=== PATIENT | male | born 1955 | race Caucasian/White ===

== ENCOUNTER 2020-04-22 08:08 | Outpatient (CLI) | payer MEDICARE, OTHER, SELFPAY ==
[2020-04-22 09:02] LABS: Hemoglobin A1C 6.6 % (<5.7)
== END 2020-04-22 08:09 | disposition home or self-care (01) ==
PROVIDERS: PCP Internal Medicine; Visit Provider Nurse Practitioner
DX: E11.9 Type 2 diabetes mellitus without complications (principal)
CPT/HCPCS: 36415; 83036

== ENCOUNTER 2020-06-01 12:22 | Outpatient (CLI) | payer MEDICARE, OTHER, SELFPAY ==
[2020-06-01 12:57] LABS: Blood Urea Nitrogen 19 mg/dL (9-20); Calcium 10.1 mg/dL (8.4-10.2); Carbon Dioxide 29 mmol/L (22-30); Chloride 100 mmol/L (98-107); Estimated Glomerular Filt Rate > 60; Glucose 124 mg/dL (75-110); Magnesium 2.5 mg/dL (1.6-2.3); Potassium 3.7 mmol/L (3.4-5.0); Sodium 138 mmol/L (137-145)
== END 2020-06-01 12:23 | disposition home or self-care (01) ==
PROVIDERS: PCP Internal Medicine; Visit Provider Clinical Nurse Specialist
DX: E87.6 Hypokalemia (principal)
CPT/HCPCS: 36415; 80048; 83735

== ENCOUNTER 2020-06-04 11:10 | Outpatient (CLI) | payer MEDICARE, OTHER, SELFPAY ==
--- NOTE | 2020-06-04 15:00 | NEURO_ITS ---
Patient Number: [id number] Impression: # Complains of muscle cramps in lower extremities. # Normal nerve conduction study. # Normal needle/EMG exam. # Clinical correlation recommended. Nerve Conduction Studies Anti Sensory Summary Table Stim Site NR Peak (ms) P-T Amp (?V) Site1 Site2 Delta-P (ms) Dist (cm) Devonte (m/s) Left Sup Fibular Anti Sensory (Ant Lat Mall) 14 cm 3.3 16.1 14 cm Ant Lat Mall 3.3 16.0 48 Right Sup Fibular Anti Sensory (Ant Lat Mall) 14 cm 3.8 9.0 14 cm Ant Lat Mall 3.8 16.0 42 Left Sural Anti Sensory (Lat Mall) Calf 3.8 5.3 Calf Lat Mall 3.8 16.0 42 Right Sural Anti Sensory (Lat Mall) Calf 3.8 4.9 Calf Lat Mall 3.8 16.0 42 Motor Summary Table Stim Site NR Onset (ms) O-P Amp (mV) Site1 Site2 Delta-0 (ms) Dist (cm) Devonte (m/s) Left Peroneal Motor (Vastus Med) Ankle 5.1 2.4 Popit Ankle 8.4 37.0 44 Popit 13.5 2.0 Right Peroneal Motor (Vastus Med) Ankle 4.5 2.3 Popit Ankle 8.9 39.0 44 Popit 13.4 1.5 Left Tibial Motor (Abd Justin Brev) Ankle 4.5 4.2 Knee Ankle 9.6 44.0 46 Knee 14.1 3.9 Right Tibial Motor (Abd Justin Brev) Ankle 5.1 4.5 Knee Ankle 9.7 42.0 43 Knee 14.8 1.9 F Wave Studies NR F-Lat (ms) L-R F-Lat (ms) Left Peroneal (Mrkrs) (EDB) 52.54 0.16 Right Peroneal (Mrkrs) (EDB) 52.70 0.16 Left Tibial (Mrkrs) (Abd Hallucis) 51.46 1.99 Right Tibial (Mrkrs) (Abd Hallucis) 53.45 1.99 EMG Side Muscle Nerve Root Ins Act Fibs Amp Dur Recrt Comment Right AntTibialis Dp Br Fibular L4-5 Nml Nml Nml Nml Nml Right Gastroc Tibial S1-2 Nml Nml Nml Nml Nml Right Fibularis Long Sup Br Fibular L5-S1 Nml Nml Nml Nml Nml Right Flex Dig Long Tibial L5-S2 Nml Nml Nml Nml Nml Right Ext Dig Brev Dp Br Fibular L5, S1 Nml Nml Nml Nml Nml Left AntTibialis Dp Br Fibular L4-5 Nml Nml Nml Nml Nml Left Gastroc Tibial S1-2 Nml Nml Nml Nml Nml Left Fibularis Long Sup Br Fibular L5-S1 Nml Nml Nml Nml Nml Left Flex Dig Long Tibial L5-S2 Nml Nml Nml Nml Nml Left Ext Dig Brev Dp Br Fibular L5, S1 Nml Nml Nml Nml Nml Right QuadratusFem QuadFemoris L4-5, S1 Nml Nml Nml Nml Nml Left QuadratusFem QuadFemoris L4-5, S1 Nml Nml Nml Nml Nml MTDD
== END 2020-06-04 11:11 | disposition home or self-care (01) ==
LOC: ANHNEURO 11:12
PROVIDERS: PCP Internal Medicine; Visit Provider Clinical Nurse Specialist
DX: M62.81 Muscle weakness (generalized) (principal)
CPT/HCPCS: 95886; 95910

== ENCOUNTER 2020-07-06 09:13 | Outpatient (CLI) | payer MEDICARE, OTHER, SELFPAY ==
[2020-07-06 09:50] LABS: Add Urine Microscopic? YES; Appearance Urine Cloudy (Clear); Bacteria Urine Trace /hpf; Bilirubin Urine Negative (Negative); Color Urine Amber (Yellow); Glucose Urine UA Negative (Negative); Ketones Urine Negative (Negative); Leukocyte Esterase Ur Trace LEU/UL (Negative); Mucus Urine Moderate /lpf; Nitrate Urine Positive (Negative); Protein Urine Negative (Negative); Specific Grav Ur 1.021 (1.001-1.035); Squamous Epithelial Cell Urine Rare /hpf (Few); Urobilinogen Urine Negative mg/dL (<2.0)
[2020-07-06 09:55] LABS: Blood Urine Negative (Negative)
[2020-07-06 10:00] LABS: Alanine Aminotransferase 37 U/L (4-50); Albumin Level 3.9 g/dL (3.5-5.1); Alkaline Phosphatase 84 U/L (38-126); Anion Gap 8 mmol/L (8-16); Aspartate Amino Transferase 39 U/L (17-59); Bilirubin,Total 0.6 mg/dL (0.2-1.3); Blood Urea Nitrogen 20 mg/dL (9-20); Calcium 9.3 mg/dL (8.4-10.2); Carbon Dioxide 28 mmol/L (22-30); Chloride 103 mmol/L (98-107); Estimated Glomerular Filt Rate > 60; Glucose 133 mg/dL (75-110); Magnesium 2.2 mg/dL (1.6-2.3); Potassium 3.7 mmol/L (3.4-5.0); Sodium 139 mmol/L (137-145)
[2020-07-06 10:02] LABS: Hemoglobin A1C 6.5 % (<5.7)
[2020-07-06 10:26] LABS: Thyroid Stimulating Hormone 0.303 uIU/mL (0.465-4.680)
== END 2020-07-06 09:14 | disposition home or self-care (01) ==
PROVIDERS: Clinical Nurse Specialist; PCP Internal Medicine; Visit Provider Nurse Practitioner
DX: N39.0 Urinary tract infection, site not specified (principal); E11.9 Type 2 diabetes mellitus without complications; R25.2 Cramp and spasm
CPT/HCPCS: 36415; 80053; 81001; 83036; 83735; 84443; 87077; 87086; 87088; 87186

== ENCOUNTER 2020-07-07 08:21 | Outpatient (CLI) | payer MEDICARE, OTHER, SELFPAY ==
[2020-07-07 09:35] LABS: Free T4 Free Thyroxine 1.19 ng/mL (0.78-2.19); Thyroid Stimulating Hormone 0.552 uIU/mL (0.465-4.680)
[2020-07-10 13:42] LABS: Triiodothyronine T3 Free 3.2 pg/mL (2.3-4.2)
== END 2020-07-07 08:22 | disposition home or self-care (01) ==
LOC: ANHLAB 08:26
PROVIDERS: PCP Internal Medicine; Visit Provider Clinical Nurse Specialist
DX: R79.89 Other specified abnormal findings of blood chemistry (principal); E11.9 Type 2 diabetes mellitus without complications
CPT/HCPCS: 36415; 84439; 84443; 84481

== ENCOUNTER 2020-07-16 09:30 | Outpatient (CLI) | payer MEDICARE, OTHER, SELFPAY ==
[2020-07-16 09:56] LABS: Add Urine Microscopic? YES; Appearance Urine Clear (Clear); Bilirubin Urine Negative (Negative); Blood Urine Negative (Negative); Color Urine Yellow (Yellow); Glucose Urine UA Negative (Negative); Ketones Urine Negative (Negative); Leukocyte Esterase Ur Negative LEU/UL (Negative); Mucus Urine Rare /lpf; Nitrate Urine Negative (Negative); Protein Urine Negative (Negative); RBC Urine 0-2 /hpf (0-2); Specific Grav Ur 1.016 (1.001-1.035); Urobilinogen Urine Negative mg/dL (<2.0); WBC Urine 0-3 /hpf
== END 2020-07-16 09:31 | disposition home or self-care (01) ==
LOC: ANHLAB 09:33
PROVIDERS: PCP Internal Medicine; Visit Provider Clinical Nurse Specialist
DX: N39.0 Urinary tract infection, site not specified (principal)
CPT/HCPCS: 81001

== ENCOUNTER 2020-08-27 08:32 | Outpatient (CLI) | payer MEDICARE, OTHER, SELFPAY ==
[2020-08-27 09:54] LABS: Thyroid Stimulating Hormone 0.824 uIU/mL (0.465-4.680); Total Triiodothyronine (T3) 1.85 NG/ML (0.97-1.69)
[2020-08-27 10:03] LABS: Free T4 Free Thyroxine 1.15 ng/mL (0.78-2.19)
[2020-08-31 04:27] LABS: Thyroid Peroxidase Antibodies 1 IU/mL (<9)
[2020-08-31 14:47] LABS: Thyrotropin Receptor Antibody 12.39 IU/L (<=2.00)
== END 2020-08-27 08:33 | disposition home or self-care (01) ==
PROVIDERS: PCP Internal Medicine; Visit Provider Internal Medicine Endocrinology, Diabetes & Metabolism
DX: R79.89 Other specified abnormal findings of blood chemistry (principal); E07.9 Disorder of thyroid, unspecified
CPT/HCPCS: 36415; 83519; 84439; 84443; 84480; 86376

== ENCOUNTER 2020-09-16 10:31 | Outpatient (CLI) | payer MEDICARE, OTHER, SELFPAY ==
[2020-09-16 12:41] LABS: Folic Acid > 20.0 ng/mL (2.76->20)
[2020-09-16 13:03] LABS: Erythrocyte Sedimentation Rate 16 mm/hr (0-20)
[2020-09-20 07:20] LABS: ANA Cascade Screen Negative (Negative)
== END 2020-09-16 10:32 | disposition home or self-care (01) ==
PROVIDERS: PCP Internal Medicine; Visit Provider Nurse Practitioner
DX: M79.10 Myalgia, unspecified site (principal)
CPT/HCPCS: 36415; 82607; 82746; 85652; 86038; 86430

== ENCOUNTER 2020-11-24 12:34 | Outpatient (CLI) | payer MEDICARE, OTHER, SELFPAY ==
[2020-11-24 13:20] LABS: Anion Gap 6 mmol/L (8-16); Blood Urea Nitrogen 22 mg/dL (9-20); Calcium 9.6 mg/dL (8.4-10.2); Carbon Dioxide 27 mmol/L (22-30); Chloride 104 mmol/L (98-107); Estimated Glomerular Filt Rate > 60; Glucose 152 mg/dL (75-110); Potassium 4.2 mmol/L (3.4-5.0); Sodium 137 mmol/L (137-145)
== END 2020-11-24 12:35 | disposition home or self-care (01) ==
LOC: ANHLAB 12:43
PROVIDERS: PCP Internal Medicine; Visit Provider Clinical Nurse Specialist
DX: E83.40 Disorders of magnesium metabolism, unspecified (principal); E11.9 Type 2 diabetes mellitus without complications
CPT/HCPCS: 36415; 80048; 83036; 83735

== ENCOUNTER 2021-01-25 09:31 | Outpatient (CLI) | payer MEDICARE, OTHER, SELFPAY | END 2021-01-25 09:32 | LOC: ANHCOVIDVC 09:31 | PROVIDERS: PCP Internal Medicine | DX: Z23 Encounter for immunization (principal) | CPT/HCPCS: 0001A; 91300 ==

== ENCOUNTER 2021-02-15 09:30 | Outpatient (CLI) | payer MEDICARE, OTHER, SELFPAY | END 2021-02-15 09:31 | disposition home or self-care (01) | LOC: ANHCOVIDVC 09:30 | PROVIDERS: PCP Internal Medicine | DX: Z23 Encounter for immunization (principal) | CPT/HCPCS: 0002A; 91300 ==

== ENCOUNTER 2021-02-25 09:05 | Outpatient (CLI) | payer MEDICARE, OTHER, SELFPAY ==
[2021-02-25 09:40] LABS: Basophils Percent Auto 0.8 % (0.2-1.2); Eosinophils Absolute Auto 0.1 K/mm3 (0-0.3); Eosinophils Percent Auto 2.5 % (0-4.4); Hematocrit 41.8 % (42.0-52.0); Immature Granulocyte Absolute 0.01 K/mm3 (0.00-0.031); Immature Granulocyte Percent A 0.2 % (0-0.5); Lymphocytes Absolute Auto 1.17 K/mm3 (0.9-3.2); Lymphocytes Percent Auto 22.2 % (18.3-44.2); Mean Corpuscular HGB Conc 33.5 g/dl (32-36); Mean Corpuscular Hemoglobin 27.8 pg (26-34); Mean Corpuscular Volume 83.1 fl (80-100); Mean Platelet Volume 9.4 fl (7.4-10.4); Monocytes Absolute Auto 0.3 K/mm3 (0.1-0.6); Monocytes Percent Auto 5.5 % (2.6-8.5); Neutrophils Absolute Auto 3.6 K/mm3 (1.3-6.7); Neutrophils Percent Auto 68.8 % (45.5-73.1); Platelet Count Result 224 k/mm3 (150-375); Red Blood Count 5.03 M/mm3 (4.6-6.20); Red Cell Distribution Width 13.7 % (11.5-14.5); White Blood Count 5.3 K/mm3 (4.5-10.0)
[2021-02-25 09:48] LABS: Hemoglobin A1C 5.6 % (<5.7)
[2021-02-25 09:50] LABS: Anion Gap 6 mmol/L (8-16); Blood Urea Nitrogen 17 mg/dL (9-20); Calcium 9.5 mg/dL (8.4-10.2); Carbon Dioxide 28 mmol/L (22-30); Chloride 106 mmol/L (98-107); Estimated Glomerular Filt Rate > 60; Glucose 126 mg/dL (75-110); Sodium 140 mmol/L (137-145)
[2021-02-25 10:07] LABS: MALB Creatinine Ratio < 6.1 mg/g (0-30); Microalbumin Urine Random < 6.0 mg/L (0-16.7)
== END 2021-02-25 09:06 | disposition home or self-care (01) ==
PROVIDERS: PCP Internal Medicine; Visit Provider Clinical Nurse Specialist
DX: E11.9 Type 2 diabetes mellitus without complications (principal); I10 Essential (primary) hypertension
CPT/HCPCS: 36415; 80048; 82043; 83036; 85025

== ENCOUNTER 2022-04-07 08:27 | Outpatient (CLI) | payer MEDICARE, OTHER, SELFPAY ==
[2022-04-07 08:56] LABS: Basophils Absolute Auto 0.1 K/mm3 (0.0-0.1); Basophils Percent Auto 0.7 % (0.2-1.2); Eosinophils Absolute Auto 0.2 K/mm3 (0-0.3); Eosinophils Percent Auto 2.3 % (0-4.4); Hematocrit 41.9 % (42.0-52.0); Hemoglobin 12.7 g/dL (14.0-18.0); Immature Granulocyte Absolute 0.02 K/mm3 (0.00-0.031); Immature Granulocyte Percent A 0.3 % (0-0.5); Lymphocytes Absolute Auto 1.24 K/mm3 (0.9-3.2); Lymphocytes Percent Auto 17.8 % (18.3-44.2); Mean Corpuscular HGB Conc 30.3 g/dl (32-36); Mean Corpuscular Hemoglobin 25.7 pg (26-34); Mean Corpuscular Volume 84.6 fl (80-100); Mean Platelet Volume 10.9 fl (7.4-10.4); Monocytes Absolute Auto 0.4 K/mm3 (0.1-0.6); Monocytes Percent Auto 6.3 % (2.6-8.5); Neutrophils Absolute Auto 5.1 K/mm3 (1.3-6.7); Neutrophils Percent Auto 72.6 % (45.5-73.1); Platelet Count Result 198 k/mm3 (150-375); Red Blood Count 4.95 M/mm3 (4.6-6.20); Red Cell Distribution Width 15.3 % (11.5-14.5)
[2022-04-07 09:07] LABS: Alanine Aminotransferase 29 U/L (6-50); Albumin Level 3.8 g/dL (3.5-5.1); Alkaline Phosphatase 92 U/L (38-126); Anion Gap 8 mmol/L (8-16); Aspartate Amino Transferase 38 U/L (17-59); Bilirubin,Total 0.9 mg/dL (0.2-1.3); Blood Urea Nitrogen 17 mg/dL (9-20); Calcium 8.8 mg/dL (8.4-10.2); Carbon Dioxide 25 mmol/L (22-30); Chloride 106 mmol/L (98-107); Cholesterol 102 mg/dL (0-200); Estimated Glomerular Filt Rate > 60; Glucose 144 mg/dL (65-110); HDL Direct 37 mg/dL; Hemoglobin A1C 6.3 % (<5.7); Potassium 3.9 mmol/L (3.4-5.0); Sodium 139 mmol/L (137-145); Triglycerides 65 mg/dL (<150)
[2022-04-07 09:17] LABS: LDL Cholesterol Direct 47 mg/dL
== END 2022-04-07 08:28 | disposition home or self-care (01) ==
LOC: ANHLAB 08:34
PROVIDERS: PCP Internal Medicine; Visit Provider Clinical Nurse Specialist
DX: Z12.5 Encounter for screening for malignant neoplasm of prostate (principal); E11.9 Type 2 diabetes mellitus without complications; I10 Essential (primary) hypertension
CPT/HCPCS: 36415; 80053; 80061; 83036; 84153; 85025; G0103

== ENCOUNTER 2022-08-11 08:54 | Outpatient (CLI) | payer MEDICARE, OTHER, SELFPAY ==
[2022-08-11 09:22] LABS: Basophils Absolute Auto 0.1 K/mm3 (0.0-0.1); Basophils Percent Auto 0.8 % (0.2-1.2); Eosinophils Absolute Auto 0.1 K/mm3 (0-0.3); Eosinophils Percent Auto 1.6 % (0-4.4); Hematocrit 44.1 % (42.0-52.0); Hemoglobin 14.2 g/dL (14.0-18.0); Immature Granulocyte Absolute 0.02 K/mm3 (0.00-0.031); Immature Granulocyte Percent A 0.3 % (0-0.5); Lymphocytes Absolute Auto 1.36 K/mm3 (0.9-3.2); Lymphocytes Percent Auto 22.3 % (18.3-44.2); Mean Corpuscular HGB Conc 32.2 g/dl (32-36); Mean Corpuscular Hemoglobin 27.2 pg (26-34); Mean Corpuscular Volume 84.3 fl (80-100); Mean Platelet Volume 10.7 fl (7.4-10.4); Monocytes Absolute Auto 0.4 K/mm3 (0.1-0.6); Monocytes Percent Auto 6.2 % (2.6-8.5); Neutrophils Absolute Auto 4.2 K/mm3 (1.3-6.7); Neutrophils Percent Auto 68.8 % (45.5-73.1); Platelet Count Result 179 k/mm3 (150-375); Red Blood Count 5.23 M/mm3 (4.6-6.20); Red Cell Distribution Width 14.9 % (11.5-14.5); White Blood Count 6.1 K/mm3 (4.5-10.0)
[2022-08-11 09:33] LABS: Anion Gap 13 mmol/L (8-16); Blood Urea Nitrogen 15 mg/dL (9-20); Carbon Dioxide 24 mmol/L (22-30); Chloride 103 mmol/L (98-107); Estimated Glomerular Filt Rate > 60; Glucose 176 mg/dL (65-110); Potassium 3.8 mmol/L (3.4-5.0); Sodium 140 mmol/L (137-145)
[2022-08-11 10:50] LABS: Hemoglobin A1C 7.3 % (<5.7)
== END 2022-08-11 08:55 | disposition home or self-care (01) ==
LOC: ANHLAB 08:55
PROVIDERS: PCP Internal Medicine; Visit Provider Nurse Practitioner
DX: E11.9 Type 2 diabetes mellitus without complications (principal)
CPT/HCPCS: 36415; 80048; 83036; 85025

== ENCOUNTER 2022-12-13 09:01 | Outpatient (CLI) | payer MEDICARE, OTHER, SELFPAY ==
[2022-12-13 19:41] LABS: Anion Gap 6 mmol/L (8-16); Blood Urea Nitrogen 21 mg/dL (9-20); Calcium 9.3 mg/dL (8.4-10.2); Carbon Dioxide 28 mmol/L (22-30); Chloride 109 mmol/L (98-107); Estimated Glomerular Filt Rate > 60; Glucose 136 mg/dL (65-110); Potassium 4.6 mmol/L (3.4-5.0); Sodium 143 mmol/L (137-145)
[2022-12-13 20:46] LABS: Hemoglobin A1C 6.8 % (<5.7)
== END 2022-12-13 09:02 | disposition home or self-care (01) ==
LOC: ANHGOSHLAB 09:04
PROVIDERS: PCP Internal Medicine; Visit Provider Nurse Practitioner
DX: E11.9 Type 2 diabetes mellitus without complications (principal)
CPT/HCPCS: 36415; 80048; 83036

== ENCOUNTER 2022-12-14 08:22 | Outpatient (NON) | payer MEDICARE, OTHER, SELFPAY ==
[2022-12-14 20:48] LABS: Creatinine Urine 89.7 mg/dL
[2022-12-14 20:49] LABS: MALB Creatinine Ratio 8.8 mg/g (0-30); Microalbumin Urine Random 7.9 mg/L (0-16.7)
== END 2022-12-14 08:23 | disposition home or self-care (01) ==
LOC: ANHGOSHLAB 08:24
PROVIDERS: PCP Internal Medicine; Visit Provider Nurse Practitioner
DX: E11.9 Type 2 diabetes mellitus without complications (principal)
CPT/HCPCS: 82043

== ENCOUNTER 2023-03-06 10:11 | Outpatient (CLI) | payer MEDICARE, OTHER, SELFPAY ==
[2023-03-06 18:54] LABS: Iron 71 ug/dL (49-181)
[2023-03-06 19:04] LABS: Percent Iron Saturation 21 % (20-50)
== END 2023-03-06 10:12 | disposition home or self-care (01) ==
LOC: ANHGOSHLAB 10:13
PROVIDERS: PCP Internal Medicine; Visit Provider Clinical Nurse Specialist
DX: G25.81 Restless legs syndrome (principal); I10 Essential (primary) hypertension; R79.89 Other specified abnormal findings of blood chemistry
CPT/HCPCS: 36415; 82728; 83540; 83550

== ENCOUNTER 2023-03-22 11:04 | Outpatient (CLI) | payer MEDICARE, OTHER, SELFPAY ==
[2023-03-22 19:46] LABS: Basophils Absolute Auto 0.1 K/mm3 (0.0-0.1); Eosinophils Absolute Auto 0.1 K/mm3 (0-0.3); Eosinophils Percent Auto 1.4 % (0-4.4); Hematocrit 44.7 % (42.0-52.0); Hemoglobin 14.6 g/dL (14.0-18.0); Immature Granulocyte Absolute 0.02 K/mm3 (0.00-0.031); Immature Granulocyte Percent A 0.3 % (0-0.5); Lymphocytes Absolute Auto 1.69 K/mm3 (0.9-3.2); Lymphocytes Percent Auto 24.1 % (18.3-44.2); Mean Corpuscular HGB Conc 32.7 g/dl (32-36); Mean Corpuscular Hemoglobin 28.2 pg (26-34); Mean Corpuscular Volume 86.5 fl (80-100); Mean Platelet Volume 11.6 fl (7.4-10.4); Monocytes Absolute Auto 0.4 K/mm3 (0.1-0.6); Monocytes Percent Auto 6.3 % (2.6-8.5); Neutrophils Absolute Auto 4.7 K/mm3 (1.3-6.7); Neutrophils Percent Auto 66.9 % (45.5-73.1); Platelet Count Result 179 k/mm3 (150-375); Red Blood Count 5.17 M/mm3 (4.6-6.20); Red Cell Distribution Width 13.4 % (11.5-14.5)
[2023-03-22 22:16] LABS: Hemoglobin A1C 8.5 % (<5.7)
== END 2023-03-22 11:05 | disposition home or self-care (01) ==
LOC: ANHGOSHLAB 11:11
PROVIDERS: Clinical Nurse Specialist; Nurse Practitioner; PCP Internal Medicine; Visit Provider Internal Medicine
DX: I10 Essential (primary) hypertension (principal); E11.9 Type 2 diabetes mellitus without complications
CPT/HCPCS: 36415; 83036; 85025

== ENCOUNTER 2023-07-12 14:59 | Outpatient (CLI) | payer MEDICARE, OTHER, SELFPAY ==
--- NOTE | ~2023-07-12 | US_ITS ---
EXAMINATION: US scrotum doppler DATE: 07/12/2023 16:19 INDICATION: N50.89 - Other specified disorders of the male genital or... . TECHNIQUE: Grayscale and Doppler ultrasound images of the testes were obtained. COMPARISON: None. FINDINGS: The right testis measures 4.6 x 2.9 x 3.1 cm. The left testis measures 4.1 x 3.0 x 2.8 cm. No testicular mass. The right testicle is slightly hypoechoic and hypovascular relative to the left T he right epididymis contains multiple cysts but is otherwise normal. The left epididymis contains mul tiple cysts but otherwise normal. Large bilateral hydroceles, with debris on the right. Scrotal skin thickening up to 8 mm. No varicoceles IMPRESSION: Large bilateral hydroceles, with debris noted on the right. Slightly hypoechoic and hypovascular right testicle, possibly related to edema. Infection/torsion con sidered less likely given the lack of pain and fever, but are not excluded. Scrotal skin thickening may be related to edema. As above, infection considered less likely. Bilateral epididymal cysts. Reviewed, dictated and finalized at location K. IMPRESSION: Large bilateral hydroceles, with debris noted on the right. Slightly hypoechoic and hypovascular right testicle, possibly related to edema. Infection/torsion considered less likely given the lack of pain and fever, but are not excluded. Scrotal skin thickening may be related to edema. As above, infection considered less likely. Bilateral epididymal cysts.
== END 2023-07-12 15:00 | disposition home or self-care (01) ==
PROVIDERS: PCP Internal Medicine; Visit Provider Nurse Practitioner
DX: N50.89 Other specified disorders of the male genital organs (principal); N50.3 Cyst of epididymis
CPT/HCPCS: 76870; 93976

== ENCOUNTER 2023-08-03 15:26 | Outpatient (NON) | payer MEDICARE, OTHER, SELFPAY ==
[2023-08-03 19:28] LABS: Appearance Urine Clear (Clear); Bacteria Urine 4+ /hpf; Bilirubin Urine Negative (Negative); Blood Urine 2+ (Negative); Color Urine Dark Yellow (Yellow); Glucose Urine UA 3+ mg/dL (Negative); Ketones Urine Negative (Negative); Leukocyte Esterase Ur Negative LEU/UL (Negative); Need Manual Microscopic Reviewed; Nitrate Urine Positive (Negative); Protein Urine Negative (Negative); RBC Urine 0-2 /hpf (0-2); Specific Grav Ur 1.023 (1.001-1.035); Squamous Epithelial Cell Urine None seen /hpf (Few); Urobilinogen Urine 0.2 mg/dL (<2.0); pH Urine 5.5 (5.0-9.0)
[2023-08-03 19:31] LABS: Add Urine Microscopic? YES
== END 2023-08-03 15:27 | disposition home or self-care (01) ==
LOC: ANHGOSHLAB 15:28
PROVIDERS: PCP Internal Medicine; Visit Provider Nurse Practitioner
DX: R31.9 Hematuria, unspecified (principal)
CPT/HCPCS: 81001; 87077; 87086; 87088; 87186

== ENCOUNTER 2023-08-21 08:10 | Outpatient (CLI) | payer MEDICARE, OTHER, SELFPAY ==
[2023-08-21 19:51] LABS: Alanine Aminotransferase 38 U/L (6-50); Albumin Level 3.8 g/dL (3.5-5.1); Alkaline Phosphatase 79 U/L (38-126); Anion Gap 6 mmol/L (8-16); Aspartate Amino Transferase 53 U/L (17-59); Blood Urea Nitrogen 16 mg/dL (9-20); Calcium 9.1 mg/dL (8.4-10.2); Carbon Dioxide 26 mmol/L (22-30); Chloride 106 mmol/L (98-107); Cholesterol 104 mg/dL (0-200); Estimated Glomerular Filt Rate > 60; Glucose 169 mg/dL (65-110); HDL Direct 43 mg/dL; Potassium 3.6 mmol/L (3.4-5.0); Sodium 138 mmol/L (137-145); Triglycerides 65 mg/dL (<150)
[2023-08-21 20:10] LABS: LDL Cholesterol Direct 54 mg/dL
[2023-08-21 20:44] LABS: Creatinine Urine 71.9 mg/dL
[2023-08-21 20:46] LABS: Basophils Absolute Auto 0.1 K/mm3 (0.0-0.1); Basophils Percent Auto 0.9 % (0.2-1.2); Eosinophils Absolute Auto 0.1 K/mm3 (0-0.3); Eosinophils Percent Auto 1.5 % (0-4.4); Hematocrit 42.5 % (42.0-52.0); Hemoglobin 13.7 g/dL (14.0-18.0); Immature Granulocyte Absolute 0.01 K/mm3 (0.00-0.031); Immature Granulocyte Percent A 0.1 % (0-0.5); Lymphocytes Absolute Auto 1.32 K/mm3 (0.9-3.2); Lymphocytes Percent Auto 19.3 % (18.3-44.2); Mean Corpuscular HGB Conc 32.2 g/dl (32-36); Mean Corpuscular Volume 86.7 fl (80-100); Mean Platelet Volume 11.7 fl (7.4-10.4); Monocytes Absolute Auto 0.4 K/mm3 (0.1-0.6); Monocytes Percent Auto 6.4 % (2.6-8.5); Neutrophils Absolute Auto 4.9 K/mm3 (1.3-6.7); Neutrophils Percent Auto 71.8 % (45.5-73.1); Platelet Count Result 175 k/mm3 (150-375); Red Cell Distribution Width 13.5 % (11.5-14.5); White Blood Count 6.9 K/mm3 (4.5-10.0)
[2023-08-21 20:47] LABS: MALB Creatinine Ratio 10.7 mg/g (0-30); Microalbumin Urine Random 7.7 mg/L (0-16.7)
[2023-08-21 21:52] LABS: Hemoglobin A1C 7.6 % (<5.7)
[2023-08-24 14:56] LABS: Prostate Specific Antigen 0.7 ng/mL (< OR = 4.0)
== END 2023-08-21 08:11 | disposition home or self-care (01) ==
PROVIDERS: Clinical Nurse Specialist; Nurse Practitioner; PCP Internal Medicine; Visit Provider Nurse Practitioner
DX: E11.9 Type 2 diabetes mellitus without complications (principal); Z12.5 Encounter for screening for malignant neoplasm of prostate
CPT/HCPCS: 36415; 80053; 80061; 82043; 83036; 84153; 85025; G0103

== ENCOUNTER 2024-01-01 11:11 | Outpatient (CLI) | payer MEDICARE, OTHER, SELFPAY ==
[2024-01-01 13:35] LABS: Alanine Aminotransferase 47 U/L (6-50); Albumin Level 3.8 g/dL (3.5-5.1); Alkaline Phosphatase 108 U/L (38-126); Anion Gap 5 mmol/L (8-16); Aspartate Amino Transferase 63 U/L (17-59); Bilirubin,Total 0.8 mg/dL (0.2-1.3); Blood Urea Nitrogen 16 mg/dL (9-20); Calcium 9.3 mg/dL (8.4-10.2); Carbon Dioxide 27 mmol/L (22-30); Chloride 103 mmol/L (98-107); Estimated Glomerular Filt Rate > 60; Glucose 432 mg/dL (65-110); Sodium 135 mmol/L (137-145)
[2024-01-01 15:29] LABS: Hemoglobin A1C 10.7 % (<5.7)
== END 2024-01-01 11:12 | disposition home or self-care (01) ==
LOC: ANHGOSHLAB 11:13
PROVIDERS: PCP Internal Medicine; Visit Provider Nurse Practitioner
DX: E11.9 Type 2 diabetes mellitus without complications (principal)
CPT/HCPCS: 36415; 80053; 83036

== ENCOUNTER 2024-05-10 10:01 | Outpatient (CLI) | payer MEDICARE, OTHER, SELFPAY ==
[2024-05-10 13:05] LABS: Alanine Aminotransferase 62 U/L (6-50); Alkaline Phosphatase 111 U/L (38-126); Anion Gap 7 mmol/L (4-12); Aspartate Amino Transferase 63 U/L (17-59); Bilirubin,Total 0.9 mg/dL (0.2-1.3); Blood Urea Nitrogen 15 mg/dL (9-20); Calcium 8.8 mg/dL (8.4-10.2); Carbon Dioxide 27 mmol/L (22-30); Chloride 104 mmol/L (98-107); Estimated Glomerular Filt Rate > 60; Glucose 322 mg/dL (65-110); Potassium 4.2 mmol/L (3.4-5.0); Sodium 138 mmol/L (137-145)
[2024-05-10 13:57] LABS: Hemoglobin A1C 12.2 % (<5.7)
== END 2024-05-10 10:02 | disposition home or self-care (01) ==
LOC: ANHGOSHLAB 10:03
PROVIDERS: PCP Internal Medicine; Visit Provider Nurse Practitioner
DX: E11.9 Type 2 diabetes mellitus without complications (principal)
CPT/HCPCS: 36415; 80053; 83036

== ENCOUNTER 2024-08-26 08:23 | Outpatient (CLI) | payer MEDICARE, OTHER, SELFPAY ==
[2024-08-26 14:38] LABS: Alanine Aminotransferase 41 U/L (6-50); Albumin Level 3.8 g/dL (3.5-5.1); Alkaline Phosphatase 76 U/L (38-126); Anion Gap 8 mmol/L (4-12); Aspartate Amino Transferase 76 U/L (17-59); Bilirubin,Total 0.8 mg/dL (0.2-1.3); Blood Urea Nitrogen 17 mg/dL (9-20); Carbon Dioxide 25 mmol/L (22-30); Chloride 103 mmol/L (98-107); Cholesterol 92 mg/dL (0-200); Estimated Glomerular Filt Rate > 60; Glucose 161 mg/dL (65-110); HDL Direct 36 mg/dL; Potassium 3.8 mmol/L (3.4-5.0); Sodium 136 mmol/L (137-145); Triglycerides 70 mg/dL (<150)
[2024-08-26 14:49] LABS: LDL Cholesterol Direct 37 mg/dL
[2024-08-26 14:51] LABS: Basophils Percent Auto 0.5 % (0.2-1.2); Eosinophils Absolute Auto 0.1 K/mm3 (0-0.3); Eosinophils Percent Auto 1.5 % (0-4.4); Hematocrit 42.8 % (42.0-52.0); Hemoglobin 13.8 g/dL (14.0-18.0); Immature Granulocyte Absolute 0.02 K/mm3 (0.00-0.031); Immature Granulocyte Percent A 0.3 % (0-0.5); Lymphocytes Absolute Auto 1.37 K/mm3 (0.9-3.2); Lymphocytes Percent Auto 18.6 % (18.3-44.2); Mean Corpuscular HGB Conc 32.2 g/dl (32-36); Mean Platelet Volume 11.6 fl (7.4-10.4); Monocytes Absolute Auto 0.5 K/mm3 (0.1-0.6); Monocytes Percent Auto 6.1 % (2.6-8.5); Neutrophils Absolute Auto 5.4 K/mm3 (1.3-6.7); Platelet Count Result 189 k/mm3 (150-375); Red Blood Count 4.92 M/mm3 (4.6-6.20); Red Cell Distribution Width 13.6 % (11.5-14.5); White Blood Count 7.4 K/mm3 (4.5-10.0)
[2024-08-26 15:07] LABS: Prostate Specific Antigen 0.7 ng/mL (< OR = 4.0)
[2024-08-26 15:27] LABS: Hemoglobin A1C 8.1 % (<5.7)
== END 2024-08-26 08:24 | disposition home or self-care (01) ==
PROVIDERS: PCP Internal Medicine; Visit Provider Nurse Practitioner
DX: E11.9 Type 2 diabetes mellitus without complications (principal); Z12.5 Encounter for screening for malignant neoplasm of prostate
CPT/HCPCS: 36415; 80053; 80061; 83036; 84153; 85025; G0103

== ENCOUNTER 2025-02-18 09:08 | Outpatient (CLI) | payer MEDICARE, OTHER, SELFPAY ==
--- OUTSIDE RECORDS SUMMARY | 2025-02-18 09:49 | XMS_ITS | Clinical Summary ---
Author Organization [facility] Address [address] [place] [address] Care Team Providers Care Pressure Washer Name Role Phone Anuel Bowman DO Primary Care Provider [phone] Source Comments [facility],non-owned Affiliates and Associated Physician Practices is amultiple site organization consisting of ambulatory clinics and hospital sitesin [place], [place], [place] and [place]. This disclosure is being madepursuant to the Care Everywhere program and may not contain all information available regarding this patient. Last updated 18.[facility] Allergies Active Allergy Reactions Criticality Noted Date Comments Cephalexin Itching Low 07/05/2023 Fish Allergy Diarrhea 01/27/2022 Fish-Derived Products Vomiting 05/27/2020 Penicillins Swelling 01/27/2022 Medications * Be aware that medications may not be up to date on this document. Alwaysverify current medications with the patient. Medication Sig Dispensed Refills Start Date End Date Status losartan (COZAAR) 100 MG tablet Take 1 (one) tablet by mouth once daily Active rOPINIRole (REQUIP) 1 MG tablet Take 1 (one) tablet by mouth at bedtime To be given with the 0.5 mg tablet to = 1.5 mg HS Active B Complex Vitamins (VITAMIN B COMPLEX PO) Take 2 tablets by mouth 3 times daily Active Melatonin 10 MG Take 10 (ten) mg by mouth at bedtime Active diphenhydrAMINE (BENADRYL) 25 MG tablet Take 2 (two) tablets by mouth at bedtime Active rOPINIRole (REQUIP) 0.5 MG tablet Take 1 (one) tablet by mouth at bedtime To be given with the 1 mg tablet to = 1.5 mg HS Active vitamin E (TOCOPHERYL) 400 UNIT capsule Take 1 (one) capsule by mouth once daily Active pregabalin (LYRICA) 75 MG capsule Take 2 (two) capsules by mouth 2 times daily 02/21/2022 Active Calcium Carbonate-Vit D-Min (Calcium 600+D Plus Minerals) 600-400 MG-UNIT TABS Take 1 tablet by mouth once daily Active acetaminophen (Tylenol) 325 MG tablet Take 1 (one) tablet by mouth every 4 hours as needed for Fever or Pain Maximum allowable Acetaminophen amount = 4 Grams (4000 mg) / 24 hours. Active apixaban (Eliquis) 5 MG tablet Take 1 (one) tablet by mouth 2 times daily Active glyBURIDE (Diabeta; Micronase) 5 MG tablet Take 1 (one) tablet by mouth daily with breakfast Take with a meal. Active METOPROLOL SUCCINATE ER PO Take 50 mg by mouth 2 times daily Active aspirin EC (Aspirin 81) 81 MG tablet Take 1 (one) tablet by mouth once daily Active Rybelsus 14 MG tablet Take 1 (one) tablet by mouth once daily Active Active Problems Problem Noted Date Diagnosed Date Cerebrovascular accident (CVA) 02/01/2022 HLD (hyperlipidemia) 02/01/2022 TIA involving right internal carotid artery 01/12 Prediabetes 02/01/2022 Left leg weakness 01/27/2022 Hypertension 01/27/2022 Carotid occlusion, right 01/27/2022 Resolved Problems Problem Noted Date Diagnosed Date Resolved Date Type 2 diabetes mellitus, [facility] long-term current use of insulin 02/01/2022 02/01/2022 Encounters Date Type Department Care Team Description 02/11/2025 3:00 PM CDT Office Visit [facility] - Urology [address] [place] [address] Clarke Munoz PA Urinary retention (Primary Dx); Gross hematuria 02/11/2025 Travel 01/31/2025 Travel from Last 3 Months Immunizations Name Administration Dates Next Due INFLUENZA VACCINE 08/16/2022 Social History Tobacco Use Types Packs/Day Years Used Date Smoking Tobacco: Never Smokeless Tobacco: Never Tobacco Cessation:Counseling Given: Not Answered Alcohol Use Standard Drinks/Week Comments Not Currently 0 (1 standard drink = 0.6 oz pur e alcohol) AUDIT-C Answer Date Recorded Q1: How often do you have a drink containing alc ohol? Patient declined 02/01/2022 Q2: How many drinks containi ng alcohol do you have on a typical day when you are drinking? Patient declined 02/01/2022 Q3: How often do you have si x or more drinks on one occasion? Patient declined 02/01/2022 PHQ-2 Answer Date Recorded PHQ2 TOTAL SCORE 0 02/03/2022 Hunger Vital Sign Answer Date Recorded Within the past 12 months, y ou worried that your food would run out before you got the money to buy more. Never true 01/29/20 Within the past 12 months, t he food you bought just didn't last and you didn't have money to get more. Never true 01/28/2022 Sex and Gender Information Value Date Recorded Sex Assigned at Not on file Gender Identity Not on file Sexual Orientation Not on file Last Filed Vital Signs Vital Sign Reading Time Taken Comments Blood Pressure 171/88 02/11/2025 2:32 PM CDT Pulse 65 02/11/2025 2:32 PM CDT Temperature 36.1 C (97 F) 02/11/2025 2:32 PM CDT Respiratory Rate 16 08/16/2023 9:50 AM CDT Oxygen Saturation 94% 02/11/2025 2:32 PM CDT Inhaled Oxygen Concentration - - Weight 108.9 kg (240 lb) 02/11/2025 2:32 PM CDT Height 172.7 cm (5' 8 ) 02/11/2025 2:32 PM CDT Body Mass Index 36.49 02/11/2025 2:32 PM CDT Plan of Treatment Upcoming Encounters Date Type Department Care Team (Late st Contact Info) Description 03/18/2025 8:45 AM CDT Appointment [facility] [address] [place] [phone] Clarke Munoz PA [address] [place] [phone] 03/21/2025 1:00 PM CDT Procedure visit [facility] - Urology [address] [place] [address] Ryder Crystal MD [address] [place] [address] 02/11/2026 3:00 PM CDT Office Visit [facility] - Urology [address] [place] [phone] Clarke Munoz PA [address] [place] [phone] Health Maintenance Due Date Last Done Comments COLON MONITORING 1955 COLONOSCOPY - COLON CA SCREENING 1955 CT COLONOGRAPHY - COLON CA SCREENING 1955 FIT - COLON CA SCREENING 1955 FLEX SIG - COLON CA SCREENING 1955 MEDICARE AWV 12 MONTHS 1955 DTAP/TDAP/TD VACCINES (1 - Tdap) 1974 DIABETES-STATIN 1995 PNEUMOCOCCAL VACCINE 50+ (1 of 1 - PCV) 2005 ZOSTER VACCINE (1 of 2) 2005 DIABETES RETINOPATHY SCREENING 02/01/2022 DIABETES-FOOT EXAM WITH MONOFILAMENT 02/01/2022 COLOGUARD (AGES 45-75) - COLON CA SCREENING 03/09/2023 03/09/2020 Colorectal Cancer Screening 03/09/2023 COVID-19 VACCINE ( season) 2024 02/15/2021, 01/25/2021 DEPRESSION SCREENING 11/13/2024 02/03/2022 DIABETES - URINE PROTEIN SCREENING 11/13/2024 DIABETES-HGB A1C 03/27/2025 09/27/2024, 12/2022, 05/13/2023, Additional history exists INFLUENZA VACCINE (Season Ended) 2025 08/16/2022, 08/22/2020, 08/18/2019, Additional history exists DIABETES-SERUM CREATININE 09/29/20252023, 09/29/2024, 09/28/2024, Additional history exists Respiratory Syncytial Virus (RSV) Vaccine Pt: or over 60 yrs (1 - 1-dose 75+ series) 2030 HEPATITIS C SCREENING Completed 01/27/2022 HEPATITIS B VACCINE Aged Out No longe r eligible based on patient's age to complete this topic HIB VACCINE Aged Out No longer eligi ble based on patient's age to complete this topic HPV VACCINE Aged Out No longer eligi ble based on patient's age to complete this topic MENINGOCOCCAL (Group B) VACCINE SHARED DECISION-MAKING Aged Out No longer eligible based on patient's age to complete this topic MENINGOCOCCAL GROUPS A/C/Y/W VACCINE Aged Out No longer eligible based on patient's age to complete this topic Procedures Procedure Name Priority Date/Time Associated Diagnosis Comments CREATININE - POCT INTERFACED Routine 01/04/2024 1:55 PM FIRE OFFICER HEMOGLOBIN A1C Routine 02/02/2022 2:37 AM CDT HEPATITIS C AB SCREEN RFLX NAAT QUANT STAT 01/27/2022 5:08 AM CDT from Last 3 Months or Most Recently Relevant to Health Maintenance Results * (ABNORMAL) CREATININE - POCT INTERFACED (01/04/2024 1:55 PM FIRE OFFICER) Creatinine POCT 1.52(H) 0.30 - 1.30 mg/dL 01/04/2024 1:57 PM FIRE OFFICER [facility] eGFR 50(L) >90 mL/min/1.7 3 m2 01/04/2024 1:57 PM FIRE OFFICER [facility] Blood BLOOD SPECIMEN / Unknown 01/04/2024 1:55 PM FIRE OFFICER 01/04/2024 1:57 PM FIRE OFFICER Jordy Sierra MD LAB - POINT OF CAR E ORDERABLES [facility] [address] [place] [address], [facility] [phone] * (ABNORMAL) HEMOGLOBIN A1C (02/02/2022 2:37 AM CDT) Hemoglobin A1c 7.0(H) <=5.6 % 02/02/2022 10:59 AM CDT [facility] Estimated Average Glucose 154 mg/dL 02/02/2022 10:59 AM CDT [facility] Comment: HbA1c Interpretation: Normal : < 5.7% Pre-diabetes: 5.7-6.4% Diabetes: Equal to or greater than 6.5% Test results diagnostic of diabetes should be repeated for confirmation. Treatment target values recommended by ADA and other clinical organizations should be used to evaluate metabolic control in patients. Reference: [place] [employer], Standards of Care in Diabetes -2020 In patients 70 years and older consider HbA1c target range of 7.0-7.5% (Reference: Major Herrera et al. JAMDA. 2012) The Sebia assay for the measurement of HbA1c is a National Glycohemoglobin Standardization Program (NGSP) certified method. Blood BLOOD SPECIMEN / Unknown Lab Venipuncture / Unknown 02/02/2022 2:37 AM CDT 02/02/2022 3:23 AM CDT Duke Russell MD LAB - CHEMISTRY ASHLEY CHINO Performing Organization Address City/[facility]/ZIP Co de Phone Number [address] [address], [place] [phone] * HEPATITIS C AB SCREEN RFLX NAAT QUANT (01/27/2022 5:08 AM CDT) Hepatitis C Antibody Non-react maria r Non-reac tive 01/27/2022 6:44 AM CDT [facility] Comment:Hepatitis C Antibody screen indicates no serologic evidence of past or current infection with Hepatitis C Virus. Patients with unexplained liver disease who are immunocompromised or suspected of having acute Hepatitis C infection may benefit from Nucleic Acid Test (JESUS MANUEL) for Hepatitis C Viral RNA to confirm Hepatitis C status. Blood BLOOD SPECIMEN / Unknown Venipuncture / Unknown 01/27/2022 5:08 AM CDT 01/27/2022 5:12 AM CDT Raul Henderson MD LAB - CHEMISTRY TAYLOR RATLIFF [address] [address], [place] [phone] from Last 3 Months or Most Recently Relevant to Health Maintenance Advance Directives * Full Code (Latest Code Status on File) Date Activated Date Inactivated Comments 02/01/2022 10:20 AM 02/04/2022 3:10 PM * Full Code Date Activated Date Inactivated Comments 01/27/2022 4:56 AM 01/30/2022 12:54 PM Care Teams Pressure Washer Relationship Specialty Start Date End Date Anuel Bowman DO PCP - General Internal Medicine 01/27/22
--- OUTSIDE RECORDS SUMMARY | 2025-02-18 09:49 | XMS_ITS | Clinical Summary ---
Author Organization [facility] Address [address] [place] [address] Phone Care Team Providers Care Home Theater Installer Name Role Phone Anuel Bowman DO Primary Care Provider [phone] Dionte Ovalles MD Unavailable [phone] Allergies Active Allergy Reactions Criticality Noted Date Comments Cephalexin Itching Low 07/05/2023 Fish Containing Products Vomiting Low 05/27/2020 Penicillins Swelling Medium 05/27/2020 Medications ropinirole HCl (ROPINIROLE ORAL) Take 2 mg by mouth nightly Active losartan (COZAAR) 100 mg tablet Take 1 tablet (100 mg total) by mouth daily Active diphenhydrAMINE (BENADRYL) 25 mg capsule Take 2 tablet/capsule (50 mg total) by mouth nightly as needed for itching Active vitamin E acetate (VITAMIN E ORAL) Take by mouth Active melatonin 10 mg tablet 1 tablet (10 mg total) Active atorvastatin (LIPITOR) 80 mg tablet Take 1 tablet (80 mg total) by mouth daily Active ibuprofen (ADVIL,MOTRIN) 600 mg tablet Take 1 tablet (600 mg total) by mouth every 6 (six) hours as needed for pain Active apixaban (ELIQUIS) 5 mg tablet Take 1 tablet (5 mg total) by mouth 2 (two) times a day Active glyBURIDE (DIABETA) 5 mg tablet Take 1 tablet (5 mg total) by mouth daily with breakfast Active metFORMIN (FORTAMET) 500 mg 24 hr tablet Take 1 tablet (500 mg total) by mouth 3 (three) times a day Active metoprolol XL (TOPROL-XL) 50 mg extended release tablet Take 1 tablet (50 mg total) by mouth 2 (two) times a day Active pregabalin (LYRICA) 200 mg capsule Take 1 capsule (200 mg total) by mouth 2 (two) times a day Active acetaminophen (TYLENOL) 325 mg tablet Take 2 tablets (650 mg total) by mouth every 6 (six) hours as needed for pain Active aspirin 81 mg enteric coated tablet Take 1 tablet (81 mg total) by mouth daily Active Rybelsus 14 mg tablet Take 1 tablet (14 mg total) by mouth daily Active calcium carbonate (TUMS) 1,250 mg (500 mg elemental) chewable tablet Take 1 tablet (1,250 mg total) by mouth daily Active cholecalciferol 25 mcg (1,000 unit) tablet Take 1 tablet (1,000 Units total) by mouth daily Active Active Problems Problem Noted Date Diagnosed Date Atrial fibrillation 07/05/2023 Primary osteoarthritis of left hip 05/26/2021 Overview (05/26/2021): Added automatically from request for surgery [id number] Immunizations Immunization Administration Dates Next Due MySQUAR SARS-CoV-2 Monovalent Vaccination (12+ Yrs) PURPLE 02/15/2021,01/25/2021 Surgical History Surgery Date Site/Laterality Comments TOTAL HIP ARTHROPLASTY 06/13/2021 - 07/13/2021 Left Medical History Medical History Date Comments Hypertension Peptic ulceration Sleep apnea cpap Heart murmur 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 1974 Urinary tract infection Type 2 diabetes mellitus (HCC) b orderline due to high Hgb A1C Atrial fibrillation (HCC) Murmur Pleural thickening Pulmonary nodule RLS (restless legs syndrome) Stroke (HCC) Family History Medical History Relation Name Comments back surgery Father Diabetes Mother Heart disease Mother Heart failure Mother Hypertension Mother Diabetes Other Heart disease Other Hypertension Other Relation Name Status Comments Father Mother Other Social History Tobacco Use Types Packs/Day Years Used Date Smoking Tobacco: Never Smokeless Tobacco: Never Tobacco Cessation:Counseling Given: Not Answered AUDIT-C Answer Date Recorded Q1: How often do you have a drink containing alc ohol? Never 05/31/2021 Average Number of Drinks Not on file 021 Frequency of Binge Drinking Not on file 05/13 Sex and Gender Information Value Date Recorded Sex Assigned at Not on file Legal Sex Male 12:11 AM JEWEL OLIVING MACHINE OPERATOR Gender Identity Male 06/11/2021 2:32 PM CDT Sexual Orientation Straight 06/11/2021 2: 32 PM CDT Obstetrics History Last Filed Vital Signs Vital Sign Reading Time Taken Comments Blood Pressure 120/82 10/30/2024 2:23 PM JEWEL OLIVING MACHINE OPERATOR Pulse 69 10/30/2024 2:23 PM JEWEL OLIVING MACHINE OPERATOR Temperature 36.8 C (98.2 F) 05/31/2021 1:59 PM CDT Respiratory Rate 18 05/31/2021 3:00 PM CDT Oxygen Saturation 95% 10/30/2024 2:23 PM JEWEL OLIVING MACHINE OPERATOR Inhaled Oxygen Concentration - - Weight 108 kg (238 lb) 10/30/2024 2:23 PM JEWEL OLIVING MACHINE OPERATOR Height 172.7 cm (5' 8 ) 10/30/2024 2:23 PM JEWEL OLIVING MACHINE OPERATOR Body Mass Index 36.19 10/30/2024 2:23 PM JEWEL OLIVING MACHINE OPERATOR Plan of Treatment Health Maintenance Due Date Last Done Comments Colon Cancer Screening-Colonoscopy 1955 Depression Screening 1955 Fall Risk Assessment 1955 Hepatitis C Screening 1955 Hepatitis B Screening 1973 Pneumococcal vaccine 65+ (1 of 1 - PCV) 2005 Well Visit 65+ 01/25/2020 Covid-19 Vaccine (3 - 2023-2 5 season) 2024 02/15/2021, 01/25/2021 Influenza Vaccine (#1) 2024 , 08/22/2020, 08/18/2019, Additional history exists DTaP/Tdap/Td Vaccine (2 - Td or Tdap) 11/03/2025 11/03/2015 Zoster Vaccine Completed 08/22/2020, 11/13, 08/18/2019, Additional history exists Medical Devices Implanted Type Area Whip Operator Device Identifier Shelf Expiration Date Model / Serial / Lot [employer]uy [employer] [id number] Laporte 54mm 36mm Hip Neutral Liner Acetabular Altrx Sterile Latex Free - [id number] Implanted:Qty: 1 on 05/31/2021 by Dionte Ovalles MD at [facility] Left: Hip [employer] 05/12/2026 [id number] / / [id number] [employer] [id number] Laporte 54mm Sector Hip Shell Acetabular Gription Sterile Latex Free - [id number] Implanted:Qty: 1 on 05/31/2021 by Dionte Ovalles MD at [facility] Left: Hip [employer] 04/12/2031 [id number] / / [id number] [employer] [id number] Actis [id number] Mm Collar Hip 6 High Offset Stem Femoral - [id number] Implanted:Qty: 1 on 05/31/2021 by Dionte Ovalles MD at [facility] Left: Hip [employer] 05/12/2031 [id number] / / [id number] [employer] [id number] Articul/Declan 36mm Cementless Hip +8.5mm /14 Taper Head Femoral Latex Free - [id number] Implanted:Qty: 1 on 05/31/2021 by Dionte Ovalles MD at [facility] Left: Hip [employer] 02/10/2026 [id number] / / [id number] Insurance MEDICARE [email or web address] MEDICARE FOR LIFE Advance Directives For more information, please contact: [phone] * Full Code (Latest Code Status on File) Date Activated Date Inactivated Comments 05/31/2021 11:11 AM 05/31/2021 8:40 PM Care Teams Home Theater Installer Relationship Specialty Start Date End Date Anuel Bowman DO PCP - General 11/02/15 Dionte Ovalles MD Surgeon Orthopedic Surgery 05/31/21
--- OUTSIDE RECORDS SUMMARY | 2025-02-18 09:49 | XMS_ITS | Encounter Summary ---
Author Organization [facility] Address [address] [place] [address] Care Team Providers Care Sales Representative Raw Fibers Name Role Phone Anuel Bowman DO Primary Care Provider [phone] Reason for Visit * Reason Onset Date Comments Care Management Follow-up 04/10/2024 Encounter Details Date Type Department Care Team (Late st Contact Info) Description 04/10/2024 Telephone [facility] - Centralized Scheduling [address] [place] [phone] Jordy Sierra MD Care Management Follow-up Social History Tobacco Use Types Packs/Day Years Used Date Smoking Tobacco: Never Smokeless Tobacco: Never Alcohol Use Standard Drinks/Week Comments Not Currently [...] money to buy more. Never true 01/29/20 22 Within the past 12 months, t he food you bought just didn't last and you didn't have money to get more. Never true 01/28/2022 Sex and Gender Information Value Date Recorded Sex Assigned at Not on file Gender Identity Not on file Sexual Orientation Not on file documented as of this encounter Functional Status Functional Status Response Date of Assess ment Is person deaf or have serious hearing difficult y? No 02/01/2022 Is person blind or have serious difficulty seein g? No 02/01/2022 Does person have serious dif ficulty walking/climbing stairs? No 02/01/2022 Does person have difficulty dressing/bathing? No 02/01/2022 Does person have difficulty doing errands alone? No 02/01/2022 Cognitive Status Response Date of Assessm ent Does person have difficulty concentrating/remembering/making decisions? No 02/01/2022 documented as of this encounter Miscellaneous Notes * Telephone Encounter - Gunjan Ocasio - 04/10/2024 11:23 AM CDT Patient needs an order for a catheter change of 3 times a day changed to 4 times a day sent to: [facility] Fax # was not provided. documented in this encounter Plan of Treatment Upcoming Encounters Date Type Department Care Team (Late st Contact Info) Description 03/18/2025 8:45 AM CDT Appointment [address] [address] Clarke Munoz PA [address] [place] [phone] 03/21/2025 1:00 PM CDT Procedure visit [facility] - Urology [address] [place] [phone] Ryder Crystal MD [address] [place] [address] [place] [address] 02/11/2026 3:00 PM CDT Office Visit [facility] - Urology [address] [place] [phone] Clarke Munoz PA [address] [place] [phone] documented as of this encounter Visit Diagnoses Not on filedocumented in this encounter Care Teams Sales Representative Raw Fibers Relationship Specialty Start Date End Date Anuel Bowman DO PCP - General Internal Medicine 01/27/22 documented as of this encounter
--- OUTSIDE RECORDS SUMMARY | 2025-02-18 09:49 | XMS_ITS | Encounter Summary ---
Author Organization [facility] Address [facility] [place] [address] Care Team Providers Care Draw Hand Name Role Phone Anuel Bowman DO Primary Care Provider [phone] Reason for Referral * Imaging (Emergency) - New Request Specialty Diagnoses / Procedures Referred By Contac t Referred To Contact RADIOLOGY Procedures CT HEAD WO CON Olga Harry MD [address] [place] [id number] Phone: tel: fax: Referral ID Status Reason Start Date Expiration Date V isits Requested Visits Authorized [id number] New Request 02/17/2025 02/17/2026 1 1 Reason for Visit * Reason Comments Medical Problem Encounter Details Date Type Department Care Team (Late st Contact Info) Description 02/17/2025 2:07 AM CDT - 02/17/2025 3:32 AM CDT Emergency [facility] Emergency Room [id number] [place] [id number] Olga Harry MD [address] [place] [id number] Medical Problem Discharge Disposition: Home or Self Care (Routine Discharge) Social History Tobacco Use Types Packs/Day Years Used Date Smoking Tobacco: Never Smokeless Tobacco: Never Alcohol Use Standard Drinks/Week Comments Never 0 (1 standard drink = 0.6 oz pur e alcohol) [facility] Utilities Answer Date Recorded In the past 12 months has th e electric, gas, oil, or water company threatened to shut off services in your home? No 09/26/2024 Humiliation, Afraid, Rape, and Kick questionnair e Answer Date Recorded Within the last year, have y ou been afraid of your partner or ex-partner? No 09/26/2024 Within the last year, have y ou been humiliated or emotionally abused in other ways by your partner or ex-partner? No Within the last year, have y ou been kicked, hit, slapped, or otherwise physically hurt by your partner or ex-partner? No 09/26/2024 Within the last year, have y ou been raped or forced to have any kind of sexual activity by your partner or ex-partner? No 09/26/2024 AUDIT-C Answer Date Recorded Frequency of Alcohol Consumption Never 05/27/2020 Average Number of Drinks Not on file 020 Frequency of Binge Drinking Not on file 05/13 Overall Financial Resource Strain (CARDIA) Answe r Date Recorded How hard is it for you to pa y for the very basics like food, housing, medical care, and heating? Not hard at all 09/26/2024 Hunger Vital Sign Answer Date Recorded Within the past 12 months, y ou worried that your food would run out before you got the money to buy more. Never true 09/26/20 24 Within the past 12 months, t he food you bought just didn't last and you didn't have money to get more. Never true 09/26/2024 PRAPARE - Transportation Answer Date Re corded In the past 12 months, has l ack of transportation kept you from medical appointments or from getting medications? No 09/13 In the past 12 months, has l ack of transportation kept you from meetings, work, or from getting things needed for daily living? No 09/26/2024 Housing Stability Vital Sign Answer Isma e Recorded In the last 12 months, was t here a time when you were not able to pay the mortgage or rent on time? No 05/13/2023 In the last 12 months, how many places have you lived? 1 05/13/2023 In the last 12 months, was t here a time when you did not have a steady place to sleep or slept in a senior living (including now)? No 05/13/2023 Housing Stability Vital Sign Answer Isma e Recorded In the last 12 months, was t here a time when you were not able to pay the mortgage or rent on time? No 09/26/2024 In the past 12 months, how m any times have you moved where you were living? 1 09/26/2024 At any time in the past 12 m [facility], were you homeless or living in a senior living (including now)? 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 Not on file Not on file Not on file documented as of this encounter Last Filed Vital Signs Vital Sign Reading Time Taken Comments Blood Pressure 132/75 02/17/2025 3:00 AM CDT Pulse 72 02/17/2025 3:00 AM CDT Temperature 36.4 C (97.5 F) 02/17/2025 2:12 AM CDT Respiratory Rate 12 02/17/2025 3:00 AM CDT Oxygen Saturation 97% 02/17/2025 3:00 AM CDT Inhaled Oxygen Concentration - - Weight 107.9 kg (237 lb 14 oz) 02/17/2025 2:12 A M CDT Height 172.7 cm (5' 8 ) 02/17/2025 2:12 AM CDT Body Mass Index 36.17 02/17/2025 2:12 AM CDT documented in this encounter Functional Status * Are you deaf or do you have serious difficulty hearing Answer Date of Assessment Author Status No 09/26/2024 10:17 PM Brandy Tan RN Active * Are you blind or do you have serious difficulty seeing, even when wearing glasses? Answer Date of Assessment Author Status No 09/26/2024 10:17 PM Brandy Tan RN Active * Do you have serious difficulty walking or climbing stairs? Answer Date of Assessment Author Status No 09/26/2024 10:17 PM Brandy Tan RN Active * Do you have difficulty dressing or bathing? Answer Date of Assessment Author Status No 09/26/2024 10:17 PM Brandy Tan RN Active * Because of a physical, mental, or emotional condition, do you have difficulty doing errands alone such as visiting a doctor's office or shopping? Answer Date of Assessment Author Status No 09/26/2024 10:17 PM Brandy Tan RN Active documented as of this encounter Mental Status * Because of a physical, mental, or emotional condition, do you have serious difficulty concentrating, remembering, or making decisions? Answer Entry Date Author Status No 09/26/2024 10:17 PM Brandy Tan RN Active documented in this encounter Discharge Instructions * Attachments The following attachments cannot be sent through Care Everywhere. * Preventing Falls ED ([place]) documented in this encounter Medications at Time of Discharge apixaban (ELIQUIS) 5 MG tabletIndications: Atrial Fibrillation Take 1 tablet (5 mg total) by mouth 2 (two) times daily. Indications: Atrial Fibrillation 60 tablet 2 05/16/2023 aspirin EC (ECOTRIN) 81 MG tablet Take 1 tablet (81 mg total) by mouth daily. atorvastatin (LIPITOR) 80 MG tablet Take 1 tablet (80 mg total) by mouth nightly at bedtime. Calcium Carbonate-Vit D-Min (CALCIUM 1200 OR) Take 1,200 mg by mouth daily. diphenhydrAMINE 25 MG capsule Take 2 capsules (50 mg total) by mouth nightly at bedtime. glyBURIDE (DIABETA) 5 MG tablet Take 2 tablets (10 mg total) by mouth 2 (two) times daily with meals. losartan 100 MG tablet Take 1 tablet (100 mg total) by mouth daily. melatonin 5 MG tablet Take 2 tablets (10 mg total) by mouth nightly at bedtime. metoprolol succinate ER (TOPROL-XL) 50 MG 24 hr tablet Take 1 tablet (50 mg total) by mouth 2 (two) times daily. 60 tablet 3 05/16/2023 pregabalin (LYRICA) 200 MG capsuleIndications :Lumbar radiculopathy Take 1 capsule (200 mg total) by mouth 2 (two) times daily. 60 capsule 1 05/16/2023 rOPINIRole (REQUIP) 2 MG tablet Take 2 tablets (4 mg total) by mouth nightly at bedtime. 05/02/2023 Semaglutide (RYBELSUS) 14 MG TabIndications:Joie sujatha Mellitus Take 14 mg by mouth daily. Indications: Diabetes vitamin E 400 UNIT capsule Take 1 capsule (400 Units total) by mouth daily. documented as of this encounter ED Notes * Olga Harry MD - 02/17/2025 2:56 AM CDT Chief Complaint Chief Complaint Patient presents with Medical Problem History of Present Illness Patient was brought in by paramedics in the middle of the night after he accidentally rolled out ofbed. He denies any injury. He has a history of stroke as well as diabetes. He denies head neck chest back abdomen or extremity injury. He has baseline weakness on the left side which he feels is unchanged. Patient is on a blood thinner. Medical History ALLERGIES: Review of patient's allergies indicates: Allergen Reactions Fish-Derived Products Vomiting Penicillins Swelling MEDICATIONS: Prior to Admission medications Medication Sig Start Date End Date Taking? Authorizing Provider apixaban (ELIQUIS) 5 MG tablet Take 1 tablet (5 mg total) by mouth 2 (two) times daily. Indications: Atrial Fibrillation 05/16/23 Lyn Hutchison MD aspirin EC (ECOTRIN) 81 MG tablet Take 1 tablet (81 mg total) by mouth daily. Doc [facility] atorvastatin (LIPITOR) 80 MG tablet Take 1 tablet (80 mg total) by mouth nightly at bedtime. Default History Genericprovider Calcium Carbonate-Vit D-Min (CALCIUM 1200 OR) Take 1,200 mg by mouth daily. Default History Genericprovider diphenhydrAMINE 25 MG capsule Take 2 capsules (50 mg total) by mouth nightly at bedtime. [facility] glyBURIDE (DIABETA) 5 MG tablet Take 2 tablets (10 mg total) by mouth 2 (two) times daily with meals. Default History Genericprovider losartan 100 MG tablet Take 1 tablet (100 mg total) by mouth daily. [facility] melatonin 5 MG tablet Take 2 tablets (10 mg total) by mouth nightly at bedtime. Default History Genericprovider metoprolol succinate ER (TOPROL-XL) 50 MG 24 hr tablet Take 1 tablet (50 mg total) by mouth 2 (two)times daily. 05/16/23 Lyn Hutchison MD pregabalin (LYRICA) 200 MG capsule Take 1 capsule (200 mg total) by mouth 2 (two) times daily. 05/16/23 Lyn Hutchison MD rOPINIRole (REQUIP) 2 MG tablet Take 2 tablets (4 mg total) by mouth nightly at bedtime. 05/02/23 Default History Genericprovider Semaglutide (RYBELSUS) 14 MG Tab Take 14 mg by mouth daily. Indications: Diabetes Default History Genericprovider vitamin E 400 UNIT capsule Take 1 capsule (400 Units total) by mouth daily. Doc [facility] PAST MEDICAL HISTORY: Past Medical History: Diagnosis Date Bulging lumbar disc CVA (cerebral vascular accident) ([facility]) 01/2022 Left hemiparesis Diabetes mellitus ([facility]) Hearing loss left ear since stroke Hypertension Sciatica of right side Urinary retention self catheterizes TID PAST SURGICAL HISTORY: Past Surgical History: Procedure Laterality Date TOTAL HIP ARTHROPLASTY Left 05/31/2021 FAMILY HISTORY: Family History Problem Relation Name Age of Onset Diabetes Mother Heart Disease Mother Atrial fibrillation Mother CHF Mother Pancreatic cancer Sister Other (invalid since 5, cancer) Sister Heart Brother oldest Stent Cardiac Brother oldest 76 Cancer Niece SOCIAL HISTORY: Social History Tobacco Use Smoking status: Never Smokeless tobacco: Never Substance Use Topics Alcohol use: Never Drug use: Never Review of Systems Review of Systems Physical Exam Filed Vitals: 02/17/25 0212 BP: (!) 159/89 Pulse: (!) 57 Resp: 18 Temp: 97.5 ??F (36.4 ??C) TempSrc: Temporal SpO2: 96% Weight: 107.9 kg (237 lb 14 oz) Height: 1.727 m (5' 8 ) Physical Exam GEN: AWAKE AND ALERT, NAD HEENT: NO SIGNS OF HEAD TRAUMA, NO SIGNS OF BASILAR SKULL FX, PUPILS ROHINI NECK: NO C-SPINE TTP, NO JVD HEART: RRR, NO MURMUR LUNGS: CTA (B), THORAX: NO TTP WITH COMPRESSION, NO SUBCUT AIR, NO BRUISING ABD: SOFT, NO BRUISING, NO TTP BACK: NO PRABHAKAR TTP, NO BRUISING EXT: NO DEFORMITY, NO PRABHAKAR TTP, PERFUSING EXTREMITIES MEURO: GCS-15, AWAKE AND ALERT, STRENGTH 5/5 IN ALL EXTREMITIES Diagnostic Studies / Procedures ELECTROCARDIOGRAMS: EKG interpretation: Sinus bradycardia-55, first-degree AV block, no ST elevation, Qtc-404 Results for orders placed or performed during the hospital encounter of 02/17/25 ECG 12 lead Narrative [facility] Test Date: 2025-02-17 Pat Name: SAULO CURRAN Department: 85 Room: EXAM 505 Gender: Male Grade Recorder: : 1955 Requested By: OLGA HARRY Order Number: [id number] Reading MD: Measurements Intervals Blodgett Rate: 55 P: 30 WV: 213 QRS: -24 QRSD: 112 T: -11 QT: 415 QTc: 399 Interpretive Statements SINUS BRADYCARDIA WITH SINUS ARRHYTHMIA WITH FIRST DEGREE AV BLOCK BORDERLINE LEFT AXIS DEVIATION [QRS AXIS < -20] MODERATE INTRAVENTRICULAR CONDUCTION DELAY [110+ ms QRS DURATION] Compared to ECG 09/26/2024 19:59:35 First degree AV block now present Intraventricular conduction delay now present Sinus tachycardia no longer present Myocardial infarct finding no longer present LABORATORY STUDIES: No results found for this visit on 02/17/25. IMAGING STUDIES CT HEAD WO CON Final Result by User, [id number] (02/17 258) [facility] [address] [facility] [place] [address] EXAMINATION: CT Head without Contrast, Axial Imaging with 2-D Coronal and Sagittal Reconstruction. INDICATION: Fell out of bed while sleeping, unknown if patient hit head, dizziness. COMPARISON: CT head without contrast 08/11/2024. FINDINGS: No significant scalp swelling. Small old infarcts are seen in the posterior lateral right frontal and right temporal lobes. Stable generalized age appropriate atrophy. Stable mild ex vacuo dilatation of right lateral ventricle and stable generalized distention the ventricles related to atrophy. Diffuse prominence of the sulci related to atrophy. Sacral monitor axial CSF prominence in the posterior midline retrocerebellar region of the posterior fossa and skull base, physiologic versus sabina cisterna magna or a small arachnoid cyst. No abnormal extra-axial fluid collections. Mild nonspecific patchy hypodensity in the periventricular and deep cerebral white matter in bilateral cerebral hemispheres without edema or mass effect, likely mild chronic white matter microvascular disease. Atherosclerotic calcifications in bilateral distal intracranial internal carotid arteries. No mass, midline shift, intracranial hemorrhage, areas of acute macrovascular ischemia, or acute osseous abnormality. Visualized orbits are unremarkable. Small mucous retention cyst in the lower right maxillary sinus and tiny mucous retention cyst in the left maxillary sinus. 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 No significant disease in the remaining paranasal sinuses and right mastoid air cells. Streak artifact from dental amalgam slightly limits evaluation of the adjacent soft tissues. IMPRESSION: 1. No acute intracranial abnormality. 2. Small old infarcts in the posterior lateral right frontal and right temporal lobes. 3. Age-appropriate atrophy with mild nonspecific chronic periventricular and deep cerebral white matter microvascular disease in bilateral cerebral hemispheres. 4. Intracranial atherosclerotic vascular calcifications. This CT exam was performed using one or more of the following dose reduction techniques: automated exposure control, adjustment of the mA and/or kV according to patient size, the use of iterative reconstruction technique, use of ALARA (As Low As Reasonably Achievable) and/or use of Image Gently techniques. Referred By: Interpreted By: Ni Saucedo MD, 02/17/2025 2:44 AM ED Course / Medical Decision Making Patient presents after accidentally falling out of bed in the middle of the night. The patient has no signs of head trauma but because is on a blood thinner I opted to do a CT scan. It shows his old strokes but no intracranial hemorrhage. I think the patient can safely be transferred back to his care facility. Medical Decision Making Amount and/or Complexity of Data Reviewed Radiology: ordered. ECG/medicine tests: ordered. Clinical Impression Fall (Primary) Disposition: Discharge Olga Harry MD 02/17/25 0302 * Betsy Hammond RN - 02/17/2025 2:08 AM CDT To ED via EMS with c/o feeling dizzy after sliding out of bed. Patient states he woke up when he slid out of bed this AM and has been dizzy ever since. History of CVA, diabetes, and afib. documented in this encounter Plan of Treatment Not on file documented as of this encounter Procedures Procedure Name Priority Date/Time Associated Diagnosis Comments CT HEAD WO CON STAT 02/17/2025 2:35 AM CDT ECG 12-LEAD Routine 02/17/2025 2:11 AM CDT documented in this encounter Results * CT HEAD WO CON (02/17/2025 2:35 AM CDT) Anatomical Region Laterality Modality Head Computed Tomogra phy 02/17/2025 2:44 AM CDT Impressions 02/17/2025 2:53 AM CDT IMPRESSION: 1. No acute intracranial abnormality. 2. Small old infarcts in the posterior lateral right frontal and right temporal lobes. 3. Age-appropriate atrophy with mild nonspecific chronic periventricular and deep cerebral white matter microvascular disease in bilateral cerebral hemispheres. 4. Intracranial atherosclerotic vascular calcifications. This CT exam was performed using one or more of the following dose reduction techniques: automated exposure control, adjustment of the mA and/or kV according to patient size, the use of iterative reconstruction technique, use of ALARA (As Low As Reasonably Achievable) and/or use of Image Gently techniques. Referred By: Interpreted By: Ni Saucedo MD, 02/17/2025 2:44 AM Narrative 02/17/2025 2:53 AM CDT [facility] [address] [facility] [place] [address] EXAMINATION: CT Head without Contrast, Axial Imaging with 2-D Coronal and Sagittal Reconstruction. INDICATION: Fell out of bed while sleeping, unknown if patient hit head, dizziness. COMPARISON: CT head without contrast 08/11/2024. FINDINGS: No significant scalp swelling. Small old infarcts are seen in the posterior lateral right frontal and right temporal lobes. Stable generalized age appropriate atrophy. Stable mild ex vacuo dilatation of right lateral ventricle and stable generalized distention the ventricles related to atrophy. Diffuse prominence of the sulci related to atrophy. Sacral monitor axial CSF prominence in the posterior midline retrocerebellar region of the posterior fossa and skull base, physiologic versus sabina cisterna magna or a small arachnoid cyst. No abnormal extra-axial fluid collections. Mild nonspecific patchy hypodensity in the periventricular and deep cerebral white matter in bilateral cerebral hemispheres without edema or mass effect, likely mild chronic white matter microvascular disease. Atherosclerotic calcifications in bilateral distal intracranial internal carotid arteries. No mass, midline shift, intracranial hemorrhage, areas of acute macrovascular ischemia, or acute osseous abnormality. Visualized orbits are unremarkable. Small mucous retention cyst in the lower right maxillary sinus and tiny mucous retention cyst in the left maxillary sinus. 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 No significant disease in the remaining paranasal sinuses and right mastoid air cells. Streak artifact from dental amalgam slightly limits evaluation of the adjacent soft tissues. Procedure Note Ni Saucedo MD - 02/17/2025 [facility] [address] [facility] [place] [address] EXAMINATION: CT Head without Contrast, Axial Imaging with 2-D Coronal andSagittal Reconstruction. INDICATION: Fell out of bed while sleeping, unknown if patient hit head,dizziness. COMPARISON: CT head without contrast 08/11/2024. FINDINGS: No significant scalp swelling. Small old infarcts are seen inthe posterior lateral right frontal and right temporal lobes. Stablegeneralized age appropriate atrophy. Stable mild ex vacuo dilatation ofright lateral ventricle and stable generalized distention the ventriclesrelated to atrophy. Diffuse prominence of the sulci related to atrophy.Sacral monitor axial CSF prominence in the posterior midlineretrocerebellar region of the posterior fossa and skull base, physiologicversus sabina cisterna magna or a small arachnoid cyst. No abnormalextra-axial fluid collections. Mild nonspecific patchy hypodensity in theperiventricular and deep cerebral white matter in bilateral cerebralhemispheres without edema or mass effect, likely mild chronic white mattermicrovascular disease. Atherosclerotic calcifications in bilateral distalintracranial internal carotid arteries. No mass, midline shift,intracranial hemorrhage, areas of acute macrovascular ischemia, or acuteosseous abnormality. Visualized orbits are unremarkable. Small mucousretention cyst in the lower right maxillary sinus and tiny mucousretention cyst in the left maxillary sinus. Developmental hypoplasia ofleft mastoid air cells. No significant disease in the remaining paranasalsinuses and right mastoid air cells. Streak artifact from dental amalgamslightly limits evaluation of the adjacent soft tissues. IMPRESSION: 1. No acute intracranial abnormality. 2. Small old infarcts in the posterior lateral right frontal and righttemporal lobes. 3. Age-appropriate atrophy with mild nonspecific chronic periventricularand deep cerebral white matter microvascular disease in bilateral cerebralhemispheres. 4. Intracranial atherosclerotic vascular calcifications. This CT exam was performed using one or more of the following dosereduction techniques: automated exposure control, adjustment of the mAand/or kV according to patient size, the use of iterative reconstructiontechnique, use of ALARA (As Low As Reasonably Achievable) and/or use ofImage Gently techniques. Referred By: Interpreted By: Ni Saucedo MD, 02/17/2025 2:44 AM us Olga Harry MD CT Final Result * ECG 12 lead (02/17/2025 2:11 AM CDT) 02/17/2025 2:11 AM CDT Narrative [facility] ([facility]) RAD - 02/17/2025 9:16 PM CDT [facility] Test Date: 2025-02-17 Pat Name: SAULO CURRAN Department: 85 Room: EXAM 505 Gender: Male Grade Recorder: : 1955 Requested By: OLGA HARRY Order Number: [id number] Reading MD: Saulo Faye Measurements Intervals Blodgett Rate: 55 P: 30 WV: 213 QRS: -24 QRSD: 112 T: -11 QT: 415 QTc: 399 Interpretive Statements SINUS BRADYCARDIA WITH SINUS ARRHYTHMIA WITH FIRST DEGREE AV BLOCK BORDERLINE LEFT AXIS DEVIATION [QRS AXIS < -20] MODERATE INTRAVENTRICULAR CONDUCTION DELAY [110+ ms QRS DURATION] Compared to ECG 09/26/2024 19:59:35 Procedure Note Saulo Faye MD - 02/17/2025 [facility] Test Date: 2025-02-17 Pat Name: SAULO CURRAN Department: 85 Room: EXAM 505 Gender: Male Grade Recorder: : 1955 Requested By: OLGA HARRY Order Number: [id number] Reading MD: Saulo Faye Measurements Intervals Blodgett Rate: 55 P: 30 WV: 213 QRS: -24 QRSD: 112 T: -11 QT: 415 QTc: 399 Interpretive Statements SINUS BRADYCARDIA WITH SINUS ARRHYTHMIA WITH FIRST DEGREE AV BLOCK BORDERLINE LEFT AXIS DEVIATION [QRS AXIS < -20] MODERATE INTRAVENTRICULAR CONDUCTION DELAY [110+ ms QRS DURATION] Compared to ECG 09/26/2024 19:59:35 us Olga Harry MD ECG ORDERABLES Final Result [facility] RAD documented in this encounter Visit Diagnoses Diagnosis Fall- Primary Unspecified fall documented in this encounter Care Teams Draw Hand Relationship Specialty Start Date End Date Anuel Bowman DO [address] [place] [address] PCP - General INTERNAL MEDICINE 10/24/20 documented as of this encounter
--- OUTSIDE RECORDS SUMMARY | 2025-02-18 09:49 | XMS_ITS | Encounter Summary ---
Author Organization [facility] Address [facility] [place] [address] Care Team Providers Care Air Quality Instrument Specialist Name Role Phone Anuel Bowman DO Primary Care Provider [phone] Encounter Details Date Type Department Care Team (Latest Contact Info) Description 02/17/2025 Travel Social History Tobacco Use Types Packs/Day Years Used Date Smoking Tobacco: Never Smokeless Tobacco: Never Alcohol Use Standard Drinks/Week Comments Never 0 (1 standard drink = 0.6 oz pur e alcohol) [facility] Utilities Answer Date Recorded In the past 12 months has e electric, gas, oil, or water company [...] place to sleep or slept in a mcc (including now)? No 05/13/2023 Housing Stability Vital [...] time in the past 12 m [facility], were you homeless or living in a mcc (including now)? 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 Not on file Not on file Not on file documented as of this encounter Functional Status * Are you [...] Tan RN Active documented in this encounter Plan of Treatment Not on file documented as of this encounter Visit Diagnoses Not on filedocumented in this encounter Care Teams Air Quality Instrument Specialist Relationship Specialty Start Date End Date Anuel Bowman DO [address] [facility] [address] [place] [address] PCP - General INTERNAL MEDICINE 10/24/20 documented as of this encounter
--- OUTSIDE RECORDS SUMMARY | 2025-02-18 09:49 | XMS_ITS | Referral Summary ---
Author Organization [facility] Virtual Care Address [address] [place] [id number] Phone Care Team Providers Care Gas Or Petroleum Operator Name Role Phone Anuel Bowman DO Primary Care Provider [phone] Dionte Ovalles MD Unavailable Allergies Active Allergy Reactions Criticality Noted Date [...] (05/26/2021): Added automatically from request for surgery [id number] Immunizations Immunization Administration Dates Next Due Chirpify SARS-CoV-2 Monovalent Vaccination (12+ Yrs) PURPLE 02/15/2021,01/25/2021 Social History Tobacco Use Types Packs/Day Years [...] on file Legal Sex 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 Gender Identity Male 06/11/2021 2:32 PM CDT Sexual Orientation Straight 06/11/2021 2: 32 PM CDT Last Filed Vital Signs Vital Sign Reading Time Taken Comments Blood Pressure 120/82 10/30/2024 2:23 PM SAP HANA ARCHITECT Pulse 69 10/30/2024 2:23 PM SAP HANA ARCHITECT Temperature 36.8 C (98.2 F) 05/31/2021 1:59 PM CDT Respiratory Rate 18 05/31/2021 3:00 PM CDT Oxygen Saturation 95% 10/30/2024 2:23 PM SAP HANA ARCHITECT Inhaled Oxygen Concentration - - Weight 108 kg (238 lb) 10/30/2024 2:23 PM SAP HANA ARCHITECT Height 172.7 cm (5' 8 ) 10/30/2024 2:23 PM SAP HANA ARCHITECT Body Mass Index 36.19 10/30/2024 2:23 PM SAP HANA ARCHITECT Plan of Treatment Not on file Medical Devices Implanted Type Area Junior Qa Analyst Device Identifier Shelf Expiration Date Model / Serial / Lot [employer] [id number] Elgin 54mm 36mm Hip Neutral Liner Acetabular Altrx Sterile Latex Free - [id number] Implanted:Qty: 1 on 05/31/2021 by Dionte Ovalles MD at [facility] Left: Hip [employer] 05/12/2026 [id number] / / [id number] [employer] [id number] Elgin 54mm Sector Hip Shell Acetabular Gription Sterile Latex Free - [id number] Implanted:Qty: 1 on 05/31/2021 by Dionte Ovalles MD at [facility] Left: Hip [employer] 04/12/2031 [id number] / / [id number] [employer] [id number] Actis L107 Mm Collar Hip 6 High Offset Stem Femoral - [id number] Implanted:Qty: 1 on 05/31/2021 by Dionte Ovalles MD at [facility] Left: Hip [employer] 05/12/2031 [id number] / / [id number] [employer] [id number] Articul/Declan 36mm Cementless Hip +8.5mm /14 Taper Head Femoral Latex Free - [id number] Implanted:Qty: 1 on 05/31/2021 by Dionte Ovalles MD at [facility] Left: Hip [employer] 02/10/2026 [id number] / / [id number] Insurance MEDICARE FOR LIFE MEDICARE FOR LIFE Advance Directives For more information, please contact: [phone] * Full Code (Latest Code Status on File) Date Activated Date Inactivated Comments 05/31/2021 11:11 AM 05/31/2021 8:40 PM Care Teams Gas Or Petroleum Operator Relationship Specialty Start Date End Date Anuel Bowman DO PCP - General 11/02/15 Dionte Ovalles MD Surgeon Orthopedic Surgery 05/31/21
--- OUTSIDE RECORDS SUMMARY | 2025-02-18 09:49 | XMS_ITS | Clinical Summary ---
Author Organization [facility] Address [address] [place] [address] Care Team Providers Care Research Interviewer Name Role Phone Anuel Bowman DO Primary Care Provider [phone] Allergies Active Allergy Reactions Criticality Noted Date Comments Fish-Derived Products Vomiting 05/27/2020 Penicillins Swelling 05/27/2020 Medications losartan 100 MG tablet Take 1 tablet (100 mg total) by mouth daily. Active vitamin E 400 UNIT capsule Take 1 capsule (400 Units total) by mouth daily. Active aspirin EC (ECOTRIN) 81 MG tablet Take 1 tablet (81 mg total) by mouth daily. Active diphenhydrAMINE 25 MG capsule Take 2 capsules (50 mg total) by mouth nightly at bedtime. Active atorvastatin (LIPITOR) 80 MG tablet Take 1 tablet (80 mg total) by mouth nightly at bedtime. Active melatonin 5 MG tablet Take 2 tablets (10 mg total) by mouth nightly at bedtime. Active rOPINIRole (REQUIP) 2 MG tablet Take 2 tablets (4 mg total) by mouth nightly at bedtime. 05/02/20 23 Active pregabalin (LYRICA) 200 MG capsuleIndication s:Lumbar radiculopathy Take 1 capsule (200 mg total) by mouth 2 (two) times daily. 60 capsule 1 05/16/20 23 Active apixaban (ELIQUIS) 5 MG tabletIndications :Atrial Fibrillation Take 1 tablet (5 mg total) by mouth 2 (two) times daily. Indications: Atrial Fibrillation 60 tablet 2 05/16/20 23 Active metoprolol succinate ER (TOPROL-XL) 50 MG 24 hr tablet Take 1 tablet (50 mg total) by mouth 2 (two) times daily. 60 tablet 3 05/16/20 Active Calcium Carbonate-Vit D-Min (CALCIUM 1200 OR) Take 1,200 mg by mouth daily. Active glyBURIDE (DIABETA) 5 MG tablet Take 2 tablets (10 mg total) by mouth 2 (two) times daily with meals. Active Semaglutide (RYBELSUS) 14 MG TabIndications:Di abetes Mellitus Take 14 mg by mouth daily. Indications: Diabetes Active Active Problems Problem Noted Date Diagnosed Date Catheter-associated urinary tract infection 09/13 UTI (urinary tract infection) 09/26/2024 Right leg weakness 05/13/2023 Encounters Date Type Department Care Team Description 02/17/2025 2:07 AM CDT - 02/17/2025 3:32 AM CDT Emergency [facility] Emergency Room [id number] [place], [place] [id number] Olga Harry MD Medical Problem Discharge Disposition: Home or Self Care (Routine Discharge) 02/17/2025 Travel from Last 3 Months Family History Medical History Relation Comments Heart Brother 1 Stent Cardiac Brother 1 Atrial fibrillation Mother CHF Mother Diabetes Mother Heart Disease Mother Cancer Niece Pancreatic cancer Sister 1 invalid since 5, cancer Sister 2 Relation Status Comments Brother 1 Alive Brother 2 Alive Brother 3 Alive Brother 4 Alive Father (Age 82) Mother (Age 68) Niece (Age 49) Sister 1 Sister 2 Sister 3 Alive Sister 4 Alive Sister 5 Alive Social History Tobacco Use Types Packs/Day Years Used Date Smoking Tobacco: Never Smokeless Tobacco: Never Tobacco Cessation:Counseling Given: Not Answered Alcohol Use Standard Drinks/Week Comments Never 0 (1 standard drink = 0.6 oz pur e alcohol) [facility] Utilities Answer Date Recorded In the past 12 months has e natue, gas, oil, or water [employer] threatened to shut off services in your [...] place to sleep or slept in a fpc (including now)? No 05/13/2023 Housing Stability Vital Sign Answer Isma e Recorded In the last 12 months, was t here a time when you were not able to pay the mortgage or rent on time? No 09/26/2024 In the past 12 months, how m any times have you moved where you were living? 1 09/26/2024 At any time in the past 12 m [facility], were you homeless or living in a fpc (including now)? 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 Not on file Not on file Not on file Last Filed Vital Signs [...] Mass Index 36.17 02/17/2025 2:12 AM CDT Plan of Treatment Health Maintenance Due Date Last Done Comments Colorectal Cancer Screening Colonoscopy (10 Years) 1955 DTaP, Tdap and Td Vaccines ( 1 - Tdap) 1974 Annual Medicare Wellness Visit 01/25/2020 Pneumococcal Vaccine: 65+ Years (1 of 1 - PCV) 01/25/2020 COVID-19 Vaccine (3 - 2023-2 5 season) 2024 02/15/2021, 01/25/2021 RSV Immunization or 60+ Years (1 - 1-dose 75+ series) 2030 Zoster Vaccines Completed 11/25/2019, 08/18/2019, 09/03/2017 Hepatitis C Completed 01/27/2022 Meningococcal B Vaccine Aged Out No l onger eligible based on patient's age to complete this topic Meningococcal Vaccine Aged Out No wayne kobe eligible based on patient's age to complete this topic RSV Immunizations Under 20 Months Aged Out No longer eligible b ased on patient's age to complete this topic Procedures Procedure Name Priority Date/Time Associated Diagnosis Comments CT HEAD WO CON STAT 02/17/2025 2:35 AM CDT ECG 12-LEAD Routine 02/17/2025 2:11 AM CDT from Last 3 Months Results * CT HEAD WO CON (02/17/2025 [...] 2:44 AM Narrative 02/17/2025 2:53 AM CDT [address] [place] [address] EXAMINATION: CT Head without Contrast, Axial Imaging [...] Procedure Note Ni Saucedo MD - 02/17/2025 [facility] [address] [place] [address] EXAMINATION: CT Head without Contrast, Axial Imaging [...] AM CDT) 02/17/2025 2:11 AM CDT Narrative 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1955 Requested By: OLGA HARRY Order Number: [id number] Reading MD: Saulo Faye Measurements Intervals Sod Rate: 55 P: 30 CT: 213 QRS: -24 QRSD: 112 T: -11 QT: 415 QTc: 399 Interpretive Statements SINUS BRADYCARDIA WITH SINUS ARRHYTHMIA WITH FIRST DEGREE AV BLOCK BORDERLINE LEFT AXIS DEVIATION [QRS AXIS < -20] MODERATE INTRAVENTRICULAR CONDUCTION DELAY [110+ ms QRS DURATION] Compared to ECG 09/26/2024 19:59:35 Procedure Note Saulo Faye MD - 02/17/2025 [facility] Test Date: 2025-02-17 Pat Name: SAULO CURRAN Department: 85 Room: EXAM 505 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 Co de Phone Number [facility] RAD from Last 3 Months Insurance MEDICARE [facility] Advance Directives Documents on File Type Date Recorded Patient Occ Therapy Asst Expl anation Advance Directives and Livin g Will 05/18/2023 1:20 PM * DNR (Latest Code Status on File) Date Activated Date Inactivated Comments 09/26/2024 8:54 PM 09/29/2024 1:13 PM * DNR Date Activated Date Inactivated Comments 05/13/2023 5:50 PM 05/16/2023 8:45 PM * Full Code Date Activated Date Inactivated Comments 05/13/2023 4:40 PM 05/13/2023 5:50 PM * DNR Date Activated Date Inactivated Comments 05/13/2023 4:38 PM 05/13/2023 4:40 PM Care Teams Research Interviewer Relationship Specialty Start Date End Date Anuel Bowman DO [address] [facility] [address] [place] [address] PCP - General INTERNAL MEDICINE 10/24/20
--- OUTSIDE RECORDS SUMMARY | 2025-02-18 09:49 | XMS_ITS | Continuity of Care Document ---
Author Name [facility] Organization [facility] Care Team Providers Care Technical Adjuster Name Role Phone [facility] Unavailable Unavailable Medications Combined list of outpatient medications from Department of Defense and Veterans Affairs facilities.Medications provided include 1) outpatient medications from the last 15 months, and 2) patient-reported medications. Medication Details Route Status Patient Instructions Prescription Expires Prescription Number Last Dispense Date Ordering Provider Order Date Order Qty Source ammonium lactate 12% topical lotion APPLY TO AFFECTED AREAS EVERY DAY DIRECTED , # 225 g, 2 total refill(s ), Acute Complet ed 05/08/2023 2 2022 225.0 Ambulat ory Pharmac y aspirin 81 mg oral delayed release tablet TAKE ONE TABLET DAILY, # 90 EA, 3 total refill(s ), Acute Complet ed 08/23/20232022 90.0 Ambulat ory Pharmac y atorvastati n 80 mg tablet 80 mg, Oral, # 90 EA, 1 total refill(s ), Hard Stop Oral (given by mouth) Complet ed 06/13/2024 3 2023 90.0 Ambulat ory Pharmac y atorvastati n 80 mg tablet 80 mg, Oral, # 90 EA, 3 total refill(s ), Hard Stop Oral (given by mouth) Complet ed 12/31/2024 4 2024 90.0 Ambulat ory Pharmac y baclofen 10 mg tablet See Instruct ions, # 20 EA, 0 total refill(s ), Hard Stop Discont inued 05/17/2023 3 2022 20.0 Ambulat ory Pharmac y cephalexin 500 mg capsule See Instruct ions, # 14 EA, 0 total refill(s ), Hard Stop Complet ed 05/15/2024 3 2023 14.0 Ambulat ory Pharmac y ciprofloxac in 500 mg tablet 500 mg, Oral, every 12 hr, # 14 EA, 0 total refill(s ), Hard Stop Oral (given by mouth) Complet ed 08/02/2024 3 2023 14.0 Ambulat ory Pharmac y clopidogrel 75 mg tablet See Instruct ions, # 90 EA, 1 total refill(s ), Acute Complet ed 08/16/2023 3 2022 90.0 Ambulat ory Pharmac y clopidogrel 75 mg tablet 75 mg, Oral, Daily, # 90 EA, 0 total refill(s ), Hard Stop Oral (given by mouth) Complet ed 08/06/2024 3 2023 90.0 Ambulat ory Pharmac y diclofenac 1% topical gel USE DOSING CARD TO APPLY 2 GRAMS TOPICALL Y TO SINGLE ELBOW, WRIST, FEET, OR HAND (INCLUDE S PALM, FINGERS, AND BACK OF HANDS) FOUR TIMES A DAY DIRECTED , # 100 g, 1 total refill(s ), Acute Complet ed 09/07/2023 2 2022 100.0 Ambulat ory Pharmac y Eliquis 5 mg tablet See Instruct ions, # 180 EA, 1 total refill(s ), Hard Stop Ordered 11/07/2025 5 2024 180.0 Ambulat ory Pharmac y Eliquis 5 mg tablet 5 mg, Oral, BID, # 180 EA, 0 total refill(s ), Hard Stop Oral (given by mouth) Discont inued 05/08/2024 3 2023 180.0 Ambulat ory Pharmac y Eliquis 5 mg tablet 5 mg, Oral, BID, # 180 EA, 1 total refill(s ), Hard Stop Oral (given by mouth) Discont inued 11/14/2024 4 2024 180.0 Ambulat ory Pharmac y Freestyle 28g lancets [100EA] See Instruct ions, # 100 EA, 3 total refill(s ), Hard Stop Ordered 05/23/2025 5 2024 100.0 Ambulat ory Pharmac y Freestyle 28g lancets [100EA] See Instruct ions, # 100 EA, 0 total refill(s ), Hard Stop Complet ed 05/21/2024 3 2023 100.0 Ambulat ory Pharmac y Freestyle Omar Lite Monitor See Instruct ions, # 1 EA, 0 total refill(s ), Hard Stop Complet ed 05/21/2024 3 2023 1.0 Ambulat ory Pharmac y freestyle lite (glucose) test strip [50EA] See Instruct ions, # 100 EA, 3 total refill(s ), Hard Stop Ordered 05/23/2025 5 2024 100.0 Ambulat ory Pharmac y freestyle lite (glucose) test strip [50] See Instruct ions, # 50 EA, 0 total refill(s ), Hard Stop Complet ed 05/21/2024 3 2023 50.0 Ambulat ory Pharmac y glucose test strip (freestyle lite) See Instruct ions, # 400 EA, 1 total refill(s ), Soft Stop Ordered 5 2024 400.0 Ambulat ory Pharmac y glyBURIDE 5 mg tablet 10 mg, Oral, BID, # 120 EA, 3 total refill(s ), Hard Stop Oral (given by mouth) Discont inued 05/08/2024 4 2023 120.0 Ambulat ory Pharmac y glyBURIDE 5 mg tablet 10 mg, Oral, BID, # 120 EA, 0 total refill(s ), Hard Stop Oral (given by mouth) Discont inued 06/10/2024 4 2023 120.0 Ambulat ory Pharmac y glyBURIDE 5 mg tablet 10 mg, Oral, BID, # 360 EA, 1 total refill(s ), Hard Stop Oral (given by mouth) Discont inued 02/06/2025 4 2024 360.0 Ambulat ory Pharmac y glyBURIDE 5 mg tablet 10 mg, Oral, BID, # 360 EA, 1 total refill(s ), Soft Stop Oral (given by mouth) Ordered 5 2024 360.0 Ambulat ory Pharmac y glyBURIDE 5 mg tablet 5 mg, Oral, Daily, # 30 EA, 2 total refill(s ), Hard Stop Oral (given by mouth) Discont inued 05/08/2024 3 2023 30.0 Ambulat ory Pharmac y HYDROcodone -acetaminop hen 5 mg-325 mg tablet See Instruct ions, Oral, # 15 EA, 0 total refill(s ), Hard Stop Oral (given by mouth) Complet ed 11/12/2023 3 2022 15.0 Ambulat ory Pharmac y ibuprofen 600 mg tablet See Instruct ions, # 20 EA, 0 total refill(s ), Hard Stop Discont inued 05/17/2023 3 2022 20.0 Ambulat ory Pharmac y lancet freestyle 28g See Instruct ions, # 400 EA, 1 total refill(s ), Soft Stop Ordered 5 2024 400.0 Ambulat ory Pharmac y losartan 100 mg tablet 100 mg, Oral, Daily, # 90 EA, 1 total refill(s ), Hard Stop Oral (given by mouth) Discont inued 05/08/2024 3 2023 90.0 Ambulat ory Pharmac y losartan 100 mg tablet See Instruct ions, # 90 EA, 1 total refill(s ), Hard Stop Discont inued 02/06/2025 5 2024 90.0 Ambulat ory Pharmac y losartan 100 mg tablet See dose instruct ions in comments , # 90 EA, 1 total refill(s ), Acute Complet ed 01/22/2024 3 2023 90.0 Ambulat ory Pharmac y losartan 100 mg tablet 100 mg, Oral, Daily, # 90 EA, 1 total refill(s ), Soft Stop Oral (given by mouth) Ordered 5 2024 90.0 Ambulat ory Pharmac y losartan 100 mg tablet 100 mg, Oral, Daily, # 90 EA, 1 total refill(s ), Hard Stop Oral (given by mouth) Discont inued 11/14/2024 4 2024 90.0 Ambulat ory Pharmac y metFORMIN 1000 mg tablet 1000 mg, Oral, BID, # 180 EA, 1 total refill(s ), Hard Stop Oral (given by mouth) Ordered 05/20/2025 4 2023 180.0 Ambulat ory Pharmac y metFORMIN 500 mg tablet See Instruct ions, Oral, # 270 EA, 1 total refill(s ), Hard Stop Oral (given by mouth) Discont inued 05/22/2024 3 2023 270.0 Ambulat ory Pharmac y metoprolol succinate ER 50 mg/24 hour tablet 50 mg, Oral, BID, # 180 EA, 1 total refill(s ), Soft Stop Oral (given by mouth) Ordered 5 2024 180.0 Ambulat ory Pharmac y metoprolol succinate ER 50 mg/24 hour tablet 50 mg, Oral, BID, # 180 EA, 1 total refill(s ), Hard Stop Oral (given by mouth) Discont inued 01/06/2025 4 2024 180.0 Ambulat ory Pharmac y metoprolol succinate ER 50 mg/24 hour tablet 50 mg, Oral, BID, # 180 EA, 1 total refill(s ), Hard Stop Oral (given by mouth) Discont inued 07/04/2024 4 2023 180.0 Ambulat ory Pharmac y metoprolol succinate ER 50 mg/24 hour tablet 50 mg, Oral, BID, # 60 EA, 3 total refill(s ), Hard Stop Oral (given by mouth) Complet ed 05/15/2024 3 2023 60.0 Ambulat ory Pharmac y oxyCODONE 5 mg tablet See Instruct ions, # 15 EA, 0 total refill(s ), Hard Stop Discont inued 05/17/2023 3 2022 15.0 Ambulat ory Pharmac y oxyCODONE 5 mg tablet See Instruct ions, # 20 EA, 0 total refill(s ), Hard Stop Complet ed 10/25/2023 3 2022 20.0 Ambulat ory Pharmac y pregabalin 200 mg capsule 200 mg, Oral, BID, # 180 EA, 1 total refill(s ), Hard Stop Oral (given by mouth) Complet ed 01/27/2025 4 2024 180.0 Ambulat ory Pharmac y pregabalin 200 mg capsule 200 mg, Oral, BID, # 180 EA, 1 total refill(s ), Hard Stop Oral (given by mouth) Complet ed 05/08/2024 4 2023 180.0 Ambulat ory Pharmac y pregabalin 200 mg capsule 200 mg, Oral, BID, # 180 EA, 0 total refill(s ), Hard Stop Oral (given by mouth) Discont inued 07/31/2024 4 2023 180.0 Ambulat ory Pharmac y pregabalin 200 mg capsule 200 mg, Oral, BID, # 180 EA, 1 total refill(s ), Soft Stop Oral (given by mouth) Ordered 5 2024 180.0 Ambulat ory Pharmac y pregabalin 200 mg capsule 200 mg, Oral, BID, # 60 EA, 1 total refill(s ), Hard Stop Oral (given by mouth) Complet ed 11/12/2023 3 2022 60.0 Ambulat ory Pharmac y pregabalin 200 mg capsule See Instruct ions, # 60 EA, 3 total refill(s ), Hard Stop Complet ed 01/07/2024 3 2023 60.0 Ambulat ory Pharmac y rOPINIRole 2 mg oral tablet TAKE TWO TABLETS (4 MG) BY MOUTH EVERY DAY AT BEDTIME, # 180 EA, 0 total refill(s ), Acute Complet ed 06/20/20232022 180.0 Ambulat ory Pharmac y rOPINIRole 2 mg tablet See Instruct ions, # 180 EA, 0 total refill(s ), Hard Stop Complet ed 04/27/2024 3 2023 180.0 Ambulat ory Pharmac y rOPINIRole ER 2 mg/24 hour tablet See Instruct ions, # 180 EA, 1 total refill(s ), Hard Stop Discont inued 02/06/2025 5 2024 180.0 Ambulat ory Pharmac y rOPINIRole ER 2 mg/24 hour tablet 4 mg, Oral, # 180 EA, 0 total refill(s ), Hard Stop Oral (given by mouth) Discont inued 05/08/2024 3 2023 180.0 Ambulat ory Pharmac y rOPINIRole ER 2 mg/24 hour tablet 4 mg, Oral, Daily, # 180 EA, 0 total refill(s ), Hard Stop Oral (given by mouth) Discont inued 11/14/2023 3 2023 180.0 Ambulat ory Pharmac y rOPINIRole ER 2 mg/24 hour tablet 4 mg, Oral, 0, # 180 EA, 1 total refill(s ), Hard Stop Oral (given by mouth) Discont inued 11/14/2024 4 2024 180.0 Ambulat ory Pharmac y rOPINIRole ER 2 mg/24 hour tablet 4 mg, Oral, every day at bedtime, # 180 EA, 1 total refill(s ), Soft Stop Oral (given by mouth) Ordered 5 2024 180.0 Ambulat ory Pharmac y Rybelsus 14 mg tablet 14 mg, Oral, Daily, # 90 EA, 1 total refill(s ), Hard Stop Oral (given by mouth) Discont inued 12/20/2024 4 2024 90.0 Ambulat ory Pharmac y Rybelsus 14 mg tablet 14 mg, Oral, Daily, # 90 EA, 3 total refill(s ), Hard Stop Oral (given by mouth) Ordered 12/18/2025 5 2024 90.0 Ambulat ory Pharmac y sulfamethox azole-trime thoprim 800 mg-160 mg tablet See Instruct ions, Oral, # 10 EA, 0 total refill(s ), Hard Stop Oral (given by mouth) Complet ed 05/21/2024 3 2023 10.0 Ambulat ory Pharmac y Allergies, Adverse Reactions, Alerts Combined list of allergies from Department of Defense and [facility] facilities. It does not include entries that were removed or entered in error. Substance Category Reaction Severity Reaction type Status Date Reported Comments Source penicillin V pota ium Drug allergy Unknown Severe Active swelling Ambulatory Pharmacy Immunizations Combined list of available immunizations from the Department of Defense and [facility] facilities. Immunization Series Date Given Administered By Site Reaction Lot Number CVX Code Drug Crushed Stone Grader Status Comments Source tetanus, diphtheria, acellular pertu is 2014 115 sanofi pasteur complet ed tetanus, diphtheri a, acellular pertussis 11/03/15 Given Ambulat ory Pharmac y Procedures Combined list of: 1) Procedures from Department of Veterans Affairs facilities going back up to thelast 18 months, not all [place] non-surgical procedures are included; 2) All procedures from the Department of [facility] facilities. Procedure Procedure Type Code Date Perfomer Comments Sourc e No data available for this section Ambulatory P harmacy Assessment and Plan Combined list of future care activities from Department of Defense and [facility] facilities (e.g., assessment and plan notes, appointments, orders, and referrals). Additional future care activities may be listed in the Plan of Care section. Result Assessment and Plan Date Source Assessment and Plan No data available for this section 02/18/2025 Ambulatory Pharmacy Functional Status Combined list of recent functional and cognitive assessments recorded at Department of Defense and [facility] Affairs ([place] Functional [place] Measurement (FIM) Scale: 1 = Total Assistance (Subject = 0% +), 2 = Maximal Assistance (Subject = 25% +), 3 = Moderate Assistance (Subject = 50% +), 4 = Minimal Assistance (Subject = 75% +), 5 = Supervision, 6 = Modified [place] (Device), 7 = Complete [place] (Timely, Safely). Assessment Date/Time Source Assessment Type Assessment Skill Assessment Score Assessment Details No data available for this section
[2025-02-18 16:02] LABS: Alanine Aminotransferase 69 U/L (6-50); Alkaline Phosphatase 82 U/L (38-126); Anion Gap 8 mmol/L (4-12); Aspartate Amino Transferase 58 U/L (17-59); Bilirubin,Total 0.9 mg/dL (0.2-1.3); Blood Urea Nitrogen 16 mg/dL (9-20); Calcium 9.3 mg/dL (8.4-10.2); Carbon Dioxide 26 mmol/L (22-30); Chloride 103 mmol/L (98-107); Cholesterol 135 mg/dL (0-200); Estimated Glomerular Filt Rate > 60; Glucose 239 mg/dL (65-110); HDL Direct 39 mg/dL; Sodium 137 mmol/L (137-145); Triglycerides 91 mg/dL (<150)
[2025-02-18 16:33] LABS: Prostate Specific Antigen 0.7 ng/mL (< OR = 4.0)
[2025-02-18 16:53] LABS: LDL Cholesterol Direct 74 mg/dL
[2025-02-18 17:00] LABS: Creatinine Urine 177.1 mg/dL
[2025-02-18 17:01] LABS: MALB Creatinine Ratio 5.8 mg/g (0-30); Microalbumin Urine Random 10.3 mg/L (0-16.7)
[2025-02-18 17:13] LABS: Basophils Percent Auto 0.7 % (0.2-1.2); Eosinophils Absolute Auto 0.1 K/mm3 (0-0.3); Eosinophils Percent Auto 1.1 % (0-4.4); Hematocrit 47.8 % (42.0-52.0); Hemoglobin 15.1 g/dL (14.0-18.0); Immature Granulocyte Absolute 0.01 K/mm3 (0.00-0.031); Immature Granulocyte Percent A 0.2 % (0-0.5); Lymphocytes Absolute Auto 1.47 K/mm3 (0.9-3.2); Lymphocytes Percent Auto 26.2 % (18.3-44.2); Mean Corpuscular HGB Conc 31.6 g/dl (32-36); Mean Corpuscular Hemoglobin 26.4 pg (26-34); Mean Corpuscular Volume 83.4 fl (80-100); Mean Platelet Volume 12.3 fl (7.4-10.4); Monocytes Absolute Auto 0.4 K/mm3 (0.1-0.6); Monocytes Percent Auto 7.8 % (2.6-8.5); Neutrophils Absolute Auto 3.6 K/mm3 (1.3-6.7); Platelet Count Result 165 k/mm3 (150-375); Red Blood Count 5.73 M/mm3 (4.6-6.20); Red Cell Distribution Width 14.6 % (11.5-14.5); White Blood Count 5.6 K/mm3 (4.5-10.0)
[2025-02-18 19:33] LABS: Hemoglobin A1C 11.1 % (<5.7)
== END 2025-02-18 09:09 | disposition home or self-care (01) ==
LOC: ANHGOSHLAB 09:09
PROVIDERS: PCP Internal Medicine; Visit Provider Nurse Practitioner
DX: E78.5 Hyperlipidemia, unspecified (principal); E11.9 Type 2 diabetes mellitus without complications; I10 Essential (primary) hypertension; Z12.5 Encounter for screening for malignant neoplasm of prostate
CPT/HCPCS: 36415; 80053; 80061; 82043; 83036; 84153; 85025; G0103

== ENCOUNTER 2025-05-23 11:10 | Outpatient (CLI) | payer MEDICARE, OTHER, SELFPAY ==
--- OUTSIDE RECORDS SUMMARY | 2025-05-23 11:13 | XMS_ITS | Continuity of Care Document ---
Author Name [facility] Organization [facility] Care Team Providers Care Hematology Technologist Name Role Phone [facility] Unavailable Unavailable Medications Combined list of outpatient [...] 2 2022 225.0 Ambulat ory Pharmac y APIXABAN 5 MG ORAL TAB Take or use exactly as directed .Obtain advice for OTCs.Bhavana ck with your doctor before becoming . 05/07/2025 [id number] 4 2023 180 [facility] [place] apixaban 5 mg tablet See Instruct ions, # 180 EA, 1 total refill(s ), Hard Stop Ordered 11/07/2025 5 2024 180.0 Ambulat ory Pharmac y aspirin 81 mg [...] total refill(s ), Hard Stop Complet ed 05/23/2025 5 2024 100.0 Ambulat ory Pharmac y Freestyle 28g lancets [100EA] See Instruct ions, # 100 EA, 0 total refill(s ), Hard Stop Complet ed 05/21/2024 3 2023 100.0 Ambulat ory Pharmac y Freestyle Jermyn Lite Monitor See Instruct ions, # 1 EA, 0 total refill(s ), Hard Stop Complet ed 05/21/2024 3 2023 1.0 Ambulat ory Pharmac y freestyle lite (glucose) test strip [50EA] See Instruct ions, # 100 EA, 3 total refill(s ), Hard Stop Complet ed 05/23/2025 5 2024 100.0 Ambulat ory Pharmac y freestyle lite (glucose) test strip [50] See Instruct ions, # 50 EA, 0 total refill(s ), Hard Stop Complet ed 05/21/2024 3 2023 50.0 Ambulat ory Pharmac y glucose test strip (freestyle lite) See Instruct ions, # 400 EA, 1 total refill(s ), Soft Stop Ordered 5 2024 400.0 Ambulat ory Pharmac y Glyburide (DiaBeta) Tablet 5 mg Oral Do not drink alcohol. Avoid exposure to sun.Take or use exactly as directed . 05/07/2025 [id number] 4 2023 120 [facility] Marco GARRISON [place] glyBURIDE 5 mg tablet 10 mg, Oral, [...] ory Pharmac y glyBURIDE 5 mg tablet = 2 tab(s), Oral, BID, # 360 EA, 1 total [...] 2024 400.0 Ambulat ory Pharmac y losartan (U/D) 100 MG ORAL TAB Be careful if taking OTCs.Aj e or use exactly as directed .Do not take if . 05/07/2025 [id number] 4 2023 90 [facility] Marco GARRISON ([facility] losartan 100 mg tablet 100 mg, Oral, [...] ory Pharmac y losartan 100 mg tablet = 1 tab(s), Oral, Daily, # 90 EA, 1 total [...] Stop Oral (given by mouth) Complet ed 05/20/2025 4 2024 180.0 Ambulat ory Pharmac y metFORMIN 500 mg tablet See Instruct ions, Oral, # 270 EA, 1 total refill(s ), Hard Stop Oral (given by mouth) Discont inued 05/22/2024 3 2023 270.0 Ambulat ory Pharmac y metoprolol succinate ER 50 mg/24 hour tablet = 1 tab(s), Oral, BID, # 180 EA, 1 total [...] ory Pharmac y pregabalin 200 mg capsule = 1 cap(s), Oral, BID, # 180 EA, 1 total [...] ory Pharmac y pregabalin 200 mg capsule = 1 cap(s), Oral, BID, # 180 EA, 1 total [...] 3 2023 60.0 Ambulat ory Pharmac y PREGABALIN 200 MG ORAL CAP Do not drink alcohol. May cause drowsine ss/dizzi ness.May impair driving. Check with your doctor before becoming . 11/03/2024 [id number] 4 2023 180 [facility] Marco GARRISON [place] rOPINIRole 2 mg oral tablet TAKE TWO [...] y rOPINIRole ER 2 mg/24 hour tablet = 2 tab(s), Oral, every day at bedtime, # 180 EA, 1 total refill(s ), Soft Stop Oral (given by mouth) Ordered 5 2024 180.0 Ambulat ory Pharmac y rOPINIRole XL 2 MG ORAL TB24 May cause drowsine ss.Obtai n advice for OTCs.May impair driving. Swallow whole.Ch carlos with your doctor before becoming .Do not chew or crush. 05/07/2025 [id number] 4 2023 180 [facility] Marco GARRISON ([facility] Rybelsus 14 mg tablet 14 mg, Oral, Daily, # 90 EA, 1 total refill(s ), Hard Stop Oral (given by mouth) Discont inued 12/20/2024 4 2024 90.0 Ambulat ory Pharmac y semaglutide 14 mg tablet = 1 tab(s), Oral, Daily, # 90 EA, 3 total refill(s ), Hard Stop Oral (given by mouth) Ordered 12/18/2025 5 2024 90.0 Ambulat ory Pharmac y sulfamethox azole-trime thoprim 800 mg-160 mg tablet See Instruct ions, Oral, # 10 EA, 0 total refill(s ), Hard Stop Oral (given by mouth) Complet ed 05/21/2024 3 2023 10.0 Ambulat ory Pharmac y sulfamethox azole-trime thoprim 800 mg-160 mg tablet See Instruct ions, # 10 EA, 0 total refill(s ), Soft Stop Ordered 5 2024 10.0 Ambulat ory Pharmac y Allergies, Adverse Reactions, Alerts Combined list of allergies from Department of Defense and Veterans Affairs facilities. It does not include entries that were removed or entered in error. Substance Category Reaction Severity Reaction type Status Date Reported Comments Source PEN-VEE K Drug allergy (disorder) Unknown active 6 [facility] Marco GARRISON ([facility] penicillin V pota ium Drug allergy Unknown Severe Active swelling Ambulatory Pharmacy Immunizations Combined list of available immunizations from the Department of Defense and Veterans Affairs facilities. Immunization Series Date Given Administered By Site Reaction Lot Number CVX Code Drug Customer Experience Intern Status Comments Source influenza, injectable, quadrivalent, preservative free 2019 [facility], () Not Given influenza , injectabl e, quadrival ent, preservat maria r free DoD zoster recombinant 2019 [facility], () Not Given zoster recombina nt DoD zoster recombinant 2019 [facility], () Not Given zoster recombina nt DoD influenza, injectable, quadrivalent, preservative free 2018 [facility], () Not Given influenza , injectabl e, quadrival ent, preservat maria r free DoD zoster recombinant 2018 [facility], () Not Given zoster recombina nt DoD Influenza, seasonal, injectable, preservative free 2016 [facility], () Not Given Influenza , seasonal, injectabl e, preservat maria r free DoD zoster live 2016 [facility], () Not Given zoster live DoD influenza, injectable, quadrivalent, preservative free 2015 [facility], () Not Given influenza , injectabl e, quadrival ent, preservat maria r free DoD tetanus, diphtheria, acellular pertu is 2014 115 sanofi pasteur complet ed tetanus, diphtheri a, acellular pertussis 11/03/15 Given Ambulat ory Pharmac y Procedures Combined list of: 1) Procedures from Department of [facility] facilities [facility], not all [place] non-surgical procedures are included; 2) All procedures from the Department of Defense facilities. Procedure Procedure Type Code Date Perfomer Comments Sourc e No data available for this section Ambulatory P harmacy Social History Combined list of available smoking, tobacco, and other social history from Department of Defense and Veterans Affairs facilities. Social History Type Response Date Comment Sourc e This section is an empty social history section. DoD Assessment and Plan Combined list of future care activities from Department of Defense and Veterans Affairs facilities (e.g., assessment and plan notes, appointments, orders, and referrals). Additional future care activities may be listed in the Plan of Care section. Result Assessment and Plan Date Source Assessment and Plan No data available for this section 05/23/2025 Ambulatory Pharmacy Functional Status Combined list of recent functional and cognitive assessments recorded at Department of Defense and Veterans Affairs ([place]).[facility] Functional [place] Measurement (FIM) Scale: 1 = Total Assistance (Subject = 0% +), 2 = Maximal Assistance (Subject = 25% +), 3 = Moderate Assistance (Subject = 50% +), 4 = Minimal Assistance (Subject = 75% +), 5 = Supervision, 6 = Modified [place] (Device), 7 = Complete [place] (Timely, Safely). Assessment Date/Time Source Assessment Type Assessment Skill Assessment Score Assessment Details No data available for this section
--- OUTSIDE RECORDS SUMMARY | 2025-05-23 11:13 | XMS_ITS | Encounter Summary ---
Author Organization [facility] Address [address] [place] [address] Care Team Providers Care Trans Router Name Role Phone Anuel Bowman DO Primary Care Provider [phone] Encounter Details Date Type Department Care Team (Late st Contact Info) Description 04/12/2025 Results Follow-Up [facility] - Urology [address] [place] [address] Ryder Crystal MD [address] [place] [address] Social History Tobacco Use Types Packs/Day Years [...] at Not on file Legal Sex Male 4:04 AM CDT Gender Identity Not on file Sexual Orientation Not on file documented as of this encounter Functional Status * Is person deaf or have serious hearing difficulty? Answer Date of Assessment Author No 02/01/2022 2:00 PM LEESAT Sharon Browning RN * Is person blind or have serious difficulty seeing? Answer Date of Assessment Author No 02/01/2022 2:00 PM Sharon Jackson RN * Does person have serious difficulty walking/climbing stairs? Answer Date of Assessment Author No 02/01/2022 2:00 PM Sharon Jackson RN * Does person have difficulty dressing/bathing? Answer Date of Assessment Author No 02/01/2022 2:00 PM Sharon Jackson RN * Does person have difficulty doing errands alone? Answer Date of Assessment Author No 02/01/2022 2:00 PM Sharon Jackson RN documented as of this encounter Mental Status * Does person have difficulty concentrating/remembering/making decisions? 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
--- OUTSIDE RECORDS SUMMARY | 2025-05-23 11:13 | XMS_ITS | Encounter Summary ---
Author Organization [facility] Address [address] [place] [address] Care Team Providers Care Rugby Union Footballer Name Role Phone Anuel Bowman DO Primary Care Provider [phone] Reason for Visit * Reason Onset Date Comments Care Management Follow-up 04/10/2024 Encounter Details Date Type Department Care Team (Late st Contact Info) Description 04/10/2024 Telephone [facility] - Centralized Scheduling [facility] [place] [address] Jordy Sierra MD Care Management Follow-up [...] of Assessment Author No 02/01/2022 2:00 PM CDT Sharon Browning RN * Is person blind or have serious difficulty seeing? Answer Date of Assessment Author No 02/01/2022 2:00 PM LEESAT Sharon Browning RN * Does person have serious difficulty walking/climbing stairs? Answer Date of Assessment Author No 02/01/2022 2:00 PM CDT Sharon Browning RN * Does person have difficulty dressing/bathing? Answer Date of Assessment Author No 02/01/2022 2:00 PM LEESAT Sharon Browning RN * Does person have difficulty doing errands alone? Answer Date of Assessment Author No 02/01/2022 2:00 PM Sharon Jackson RN documented as of this encounter Mental Status * Does person have difficulty concentrating/remembering/making decisions? Answer Entry Date Author No 02/01/2022 2:00 PM Sharon Jackson RN documented in this encounter Miscellaneous Notes * Telephone Encounter [...] st Contact Info) Description 10/03/2025 10:30 AM PHOTOGRAPHERS' MODEL Office Visit [facility] - Urology [address] [place] [phone] Ryder Crystal MD [address] [place] [address] 02/11/2026 3:00 PM CDT Office Visit [facility] - Urology [address] [place] [phone] Clarke Munoz PA [address] [place] [address] documented as of this encounter Visit Diagnoses Not on filedocumented in this encounter Care Teams Rugby Union Footballer Relationship Specialty Start Date End Date Anuel Bowman DO PCP - General Internal Medicine 01/27/22 documented as of this encounter
--- OUTSIDE RECORDS SUMMARY | 2025-05-23 11:13 | XMS_ITS | Encounter Summary ---
Author Organization [facility] Address [address] [place] [address] Care Team Providers Care Coat Agent Name Role Phone Anuel Bowman DO Primary Care Provider [phone] Encounter Details Date Type Department Care Team (Late st Contact Info) Description 05/07/2025 Results Follow-Up [facility] - Urology [address] [place] [address] Ryder Crystal MD [address] [address] Social History Tobacco Use Types Packs/Day Years [...] st Contact Info) Description 10/03/2025 10:30 AM WEB SIZER Office Visit [facility] - Urology [address] [place] [address] Ryder Crystal MD [address] [place] [address] [address] [place] [address] 02/11/2026 3:00 PM CDT Office Visit [facility] - Urology [address] [place] [id number] Clarke Munoz PA [address] [place] [phone] documented as of this encounter Visit Diagnoses Not on filedocumented in this encounter Care Teams Coat Agent Relationship Specialty Start Date End Date Anuel Bowman DO PCP - General Internal Medicine 01/27/22 documented as of this encounter
--- OUTSIDE RECORDS SUMMARY | 2025-05-23 11:14 | XMS_ITS | Referral Summary ---
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 Gender Identity Male 06/11/2021 2:32 PM CDT Sexual Orientation Straight 06/11/2021 2: 32 PM CDT Last Filed Vital Signs Vital Sign Reading Time Taken Comments Blood Pressure 120/82 10/30/2024 2:23 PM SMOCKING MACHINE OPERATOR Pulse 69 10/30/2024 2:23 PM SMOCKING MACHINE OPERATOR Temperature 36.8 C (98.2 F) 05/31/2021 1:59 PM CDT Respiratory Rate 18 05/31/2021 3:00 PM CDT Oxygen Saturation 95% 10/30/2024 2:23 PM SMOCKING MACHINE OPERATOR Inhaled Oxygen Concentration - - Weight 108 kg (238 lb) 10/30/2024 2:23 PM SMOCKING MACHINE OPERATOR Height 172.7 cm (5' 8) 10/30/2024 2:23 PM SMOCKING MACHINE OPERATOR Body Mass Index 36.19 10/30/2024 2:23 PM SMOCKING MACHINE OPERATOR Plan of Treatment Not on file Medical Devices Implanted Type Area Strip Catcher Device Identifier Shelf Expiration Date Model / Serial / Lot [employer] [id number] [place] 54mm 36mm Hip Neutral Liner Acetabular Altrx Sterile Latex Free - [id number] Implanted:Qty: 1 on 05/31/2021 by Dionte Ovalles MD at [facility] Left: Hip [employer] 05/12/2026 [id number] / / [id number] [employer] [id number] [place] 54mm Sector Hip Shell Acetabular Gription Sterile Latex Free - [id number] Implanted:Qty: 1 on 05/31/2021 by Dionte Ovalles MD at [facility] Left: Hip [employer] 04/12/2031 [id number] / / [id number] [employer] [id number] Actis L107 Mm Collar Hip 6 High Offset Stem Femoral - [id number] Implanted:Qty: 1 on 05/31/2021 by Dionte Ovalles MD at [facility] Left: Hip [employer] 05/12/2031 [id number] / / [id number] [employer] [id number] Articul/Declan 36mm Cementless Hip +8.5mm /14 Taper Head Femoral Latex Free - [id number] Implanted:Qty: 1 on 05/31/2021 by Dionte Ovalles MD at [facility] Left: Hip [employer] 02/10/2026 [id number] / / [id number] Insurance MEDICARE FOR LIFE MEDICARE FOR LIFE Advance Directives For more information, please contact: [phone] * Full Code (Latest Code Status on File) Date Activated Date Inactivated Comments 05/31/2021 11:11 AM 05/31/2021 8:40 PM Care Teams Silk Spooler Relationship Specialty Start Date End Date Anuel Bowman DO PCP - General 11/02/15 Dionte Ovalles MD Surgeon Orthopedic Surgery 05/31/21
--- OUTSIDE RECORDS SUMMARY | 2025-05-23 11:14 | XMS_ITS | Clinical Summary ---
Author Organization [facility] Address [address] [place] [address] Care Team Providers Care Dock Attendant Name Role Phone Anuel Bowman DO Primary Care Provider [phone] Source Comments [facility],non-owned Affiliates and Associated Physician Practices is amultiple site organization consisting of ambulatory clinics and hospital sitesin [place], [place], [place] and [place]. This disclosure is being madepursuant to the Care Everywhere program and may not contain all information available regarding this patient. Last updated 18.[facility] Allergies Active Allergy Reactions Criticality Noted Date Comments Cephalexin Itching Low 07/05/2023 Fish Allergy Diarrhea 01/27/2022 Fish-Derived Products Vomiting 05/27/2020 Penicillins Swelling 01/27/2022 Medications * Be aware that medications may not be up to date on this document. Alwaysverify current medications with the patient. losartan (COZAAR) 100 MG tablet Take 1 (one) tablet by mouth once daily Active rOPINIRole (REQUIP) 1 MG tablet Take 1 (one) tablet by mouth at bedtime To be given with the 0.5 mg tablet to = 1.5 mg HS Active Melatonin 10 MG Take 10 (ten) mg by mouth at bedtime Active diphenhydrAMIN E (BENADRYL) 25 MG tablet Take 2 (two) [...] (two) capsules by mouth 2 times daily Active Calcium Carbonate-Vit D-Min (Calcium 600+D Plus [...] with breakfast Take with a meal. Active aspirin EC (Aspirin 81) 81 MG tablet Take 1 (one) tablet by mouth once daily Active Rybelsus 14 MG tablet Take 1 (one) tablet by mouth once daily Active Cholecalcifero l (Vitamin D-[address]) 25 MCG (1000 UT) Take 1 (one) tablet by mouth once daily Active Active Problems Problem Noted Date Diagnosed Date Atrial fibrillation 07/05/2023 Cerebrovascular accident (CVA) 02/01/2022 HLD (hyperlipidemia) 02/01/2022 TIA involving right internal carotid artery 01/12 Prediabetes 02/01/2022 Left leg weakness 01/27/2022 Hypertension 01/27/2022 Carotid occlusion, right 01/27/2022 Primary osteoarthritis of left hip 05/26/2021 Overview (03/19/2025): Added automatically from request for surgery [id number] Resolved Problems Problem Noted Date Diagnosed Date Resolved Date Type 2 diabetes mellitus, wi thout long-term current use of insulin 02/01/2022 02/01/2022 Encounters Date Type Department Care Team Description 05/07/2025 2:36 PM CDT - 05/07/2025 11:59 PM CDT Hospital Encounter [facility] [address] [place] [phone] Ryder Crystal MD Discharge Disposition: Home or Self Care 05/07/2025 Results Follow-Up [facility] - Urology [address] [place] [address] Ryder Crystal MD 05/07/2025 Travel 04/12/2025 Results Follow-Up [facility] - Urology [address] [place] [phone] Ryder Crystal MD 04/11/2025 1:15 PM CDT - 04/11/2025 11:59 PM CDT Hospital Encounter [facility] [address] [place] [address] Ryder Crystal MD Discharge Disposition: Home or Self Care 04/11/2025 Travel 03/28/2025 11:15 AM CDT Procedure visit [facility]rology [address] [place] [phone] Ryder Crystal MD Urinary retention ; Gross hematuria; Other hydrocele 03/28/2025 Travel 03/24/2025 Telephone [facility]rology [address] [place] [address] Ryder Crystal MD Results 03/21/2025 2:00 PM CDT - 03/21/2025 11:59 PM CDT Hospital Encounter [facility] [address] [facility] [address]nd [place] [address] Discharge Disposition: Home or Self Care 03/21/2025 1:00 PM CDT Procedure visit [facility] [address] [place] [phone] Ryder Crystal MD Urinary retention 03/21/2025 Travel 03/19/2025 Telephone [facility] [address] [place] [address] Kori Peña, NON EMERGENCY SERVICES AMBULANCE DRIVER-MARBLE MECHANIC HELPER Results 03/18/2025 8:29 AM CDT - 03/18/2025 11:59 PM CDT Hospital Encounter [facility] [address] [place] [address] Clarke Munoz PA Discharge Disposition: Home or Self Care 03/18/2025 Travel from Last 3 Months Immunizations Immunization Administration Dates Next Due INFLUENZA VACCINE 08/16/2022 [...] Sign Reading Time Taken Comments Blood Pressure 138/84 03/28/2025 12:37 PM CDT Pulse 64 03/28/2025 12:37 PM CDT Temperature 36.1 C (97 F) 03/28/2025 12:37 PM CDT Respiratory Rate 16 08/16/2023 9:50 AM CDT Oxygen Saturation 97% 03/28/2025 12:37 PM CDT Inhaled Oxygen Concentration - - Weight 106.1 kg (234 lb) 03/28/2025 12:37 PM CDT Height 172.7 cm (5' 8) 03/28/2025 12:37 PM CDT Body Mass Index 35.58 03/28/2025 12:37 PM CDT Plan of Treatment Upcoming Encounters Date Type Department Care Team (Late st Contact Info) Description 10/03/2025 10:30 AM QUALITY CONTROL MICROBIOLOGY SUPERVISOR Office Visit [facility]rology [address] [place] [phone] Ryder Crystal MD [address] [place] [address] 02/11/2026 3:00 PM CDT Office Visit [facility]rology [address] [place] [phone] Clarke Munoz PA [address] [place] [phone] Health Maintenance Due Date Last Done Comments [...] Colorectal Cancer Screening 03/09/2023 COVID-19 VACCINE ( - 2023- season) 2024 02/15/2021, 01/25/2021 DEPRESSION SCREENING 11/13/2024 02/03/2022 DIABETES - URINE PROTEIN SCREENING 11/13/2024 DIABETES-HGB A1C 03/27/2025 09/27/2024, 12/2022, 05/13/2023, Additional history exists INFLUENZA VACCINE (#1) 2025 , 08/22/2020, 08/18/2019, Additional history exists DIABETES-SERUM CREATININE 04/11/20262024, 03/26/2025, 03/26/2025, Additional history exists Respiratory Syncytial Virus (RSV) [...] Procedure Name Priority Date/Time Associated Diagnosis Comments US SCROTUM AND CONTENTS Routine 05/07/20 3:27 PM CDT Other hydrocele CT UROGRAM GEORGINA 04/11/2025 2:20 PM CDT Urinary retention CREATININE - POCT INTERFACED Routine 04/11/2025 1:25 PM CDT CYTOLOGY NON-MORTUARY OPERATIONS MANAGER PANEL (STL) Routine 03/28/2025 1:20 PM CDT Gross hematuria CULTURE URINE Routine 03/21/2025 2:30 PM CDT Urinary retention PSA FREE + TOTAL PANEL Routine 2:01 PM CDT Urinary retention CYTOLOGY NON-MORTUARY OPERATIONS MANAGER PANEL (STL) Routine 03/21/2025 1:47 PM CDT Urinary retention URINALYSIS AUTO - POINT OF CARE (AMB) [facility] Routine 03/21/2025 1:37 PM CDT Urinary retention US RETROPERITONEAL COMPLETE Routine 03/18/2025 9:04 AM CDT Urinary retention HEMOGLOBIN A1C Routine 02/02/2022 2:37 AM CDT HEPATITIS C AB SCREEN RFLX NAAT QUANT STAT 01/27/2022 5:08 AM CDT from Last 3 Months or Most Recently Relevant to Health Maintenance Results * US Scrotum And Contents (05/07/2025 3:27 PM CDT) Anatomical Region Laterality Modality Pelvis Ultrasound 05/07/2025 4:09 PM CDT Impressions 05/07/2025 5:08 PM CDT IMPRESSION: 1.Bilateral large hydroceles. 2.No evidence of testicular torsion. The report was drafted by Ani Mathis MD (residential real estate appraiser) 05/07/2025 4:09 PM. I, Colleen Mays MD have personally reviewed and interpreted this examination/study. > Interpreting Provider: Colleen Mays MD on 05/07/2025 5:08 PM Narrative 05/07/2025 5:08 PM CDT PROCEDURE: US SCROTUM AND CONTENTS, DATE/TIME OF EXAM: 05/07/2025 3:27 PM, LOCATION [facility] INDICATION: N43.2: Other hydrocele ADDITIONAL CLINICAL INFORMATION: Ordering Provider Reason For Exam: right hydrocele COMPARISON: None. FINDINGS: Right testicle: 4 x 2.7 x 3.3 cm Right epididymis: 1.9 x 0.8 x 1.9 cm Left testicle: 4.1 x 2.7 x 2.5 cm Left epididymis: 1.2 x 0.7 x 1.6 cm The testicles are normal in size and echotexture. A 1 x 0.7 x 1 cm anechoic cyst seen within the superior part of the right testicle. No focal left testicular parenchymal lesion is seen. There is testicular arterial flow bilaterally. The epididymides are normal in size. A 0.6 x 0.5 x 0.5 cm anechoic cyst seen within the left epididymis. No varicocele is identified. Bilateral large hydroceles are seen. Procedure Note Colleen Mays MD - 05/07/2025 PROCEDURE: US SCROTUM AND CONTENTS, DATE/TIME OF EXAM: 05/07/2025 3:27PM, LOCATION [facility] INDICATION: N43.2: Other hydrocele ADDITIONAL CLINICAL INFORMATION: Ordering Provider Reason For Exam: right hydrocele COMPARISON: None. FINDINGS: Right testicle: 4 x 2.7 x 3.3 cm Right epididymis: 1.9 x 0.8 x 1.9 cm Left testicle: 4.1 x 2.7 x 2.5 cm Left epididymis: 1.2 x 0.7 x 1.6 cm The testicles are normal in size and echotexture. A 1 x 0.7 x 1 cmanechoic cyst seen within the superior part of the right testicle. No focal left testicular parenchymal lesion is seen. There is testicular arterial flow bilaterally. The epididymides are normal in size. A 0.6 x 0.5 x 0.5 cm anechoic cyst seen within the left epididymis. No varicocele isidentified. Bilateral large hydroceles are seen. IMPRESSION: 1.Bilateral large hydroceles. 2.No evidence of testicular torsion. The report was drafted by Ani Mathis MD (residential real estate appraiser) 05/07/2025 4:09 PM. IColleen MD have personally reviewed and interpreted this examination/study. > Interpreting Provider: Colleen Mays MD on 05/07/2025 5:08 PM Ryder Crystal MD US ORDERABLES Final Result * CT Urogram (04/11/2025 2:20 PM CDT) Anatomical Region Laterality Modality Abdomen, Pelvis Computed Tomogra phy 04/11/2025 2:30 PM CDT Impressions 04/11/2025 3:08 PM CDT Impression: No filling defect in the bilateral renal collecting systems to suggest urothelial mass. No renal calculus. > Dictated by Levi Duran MD (residential designer). Uri Guerra MD have personally reviewed and interpreted this examination/study. > Interpreting Provider: Uri Denis MD on 04/11/2025 3:08 PM Narrative 04/11/2025 3:08 PM CDT PROCEDURE: CT UROGRAM, DATE/TIME OF EXAM: 04/11/2025 2:20 PM, LOCATION [facility] INDICATION: R33.9: Urinary retention ADDITIONAL CLINICAL INFORMATION: Ordering Provider Reason For Exam: gross hematuria Technologist Note: Additional: COMPARISON: CT urogram 01/04/2024. TECHNIQUE: CT urography of the abdomen and pelvis was performed prior to and after the uneventful administration of 100 mL of Isovue 370 intravenous contrast according to a urography protocol. Multiplanar reconstructions and MIP images were produced. Findings: Lower Chest: Normal. Liver: Normal. Gallbladder and Bile Ducts: Normal. Spleen: Normal. Pancreas: Annulus pancreas is redemonstrated. Adrenals: Normal. Kidneys: Bilateral subcentimeter hypoattenuating renal lesions are too small to characterize but likely representing cysts No filling defect in the bilateral renal collecting systems to suggest urothelial mass. No renal calculus or hydronephrosis. Urinary Bladder: No calculi. Gastrointestinal: The stomach and visualized loops of large and small bowel are unremarkable. Normal appendix. 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 Reproductive Organs: Small bilateral hydrocele. Vasculature: No vascular abnormality is present. Bones: Bone windows demonstrate no suspicious lytic or blastic lesions. The visible osseous structures are intact. Left total hip arthroplasty. Soft tissues: Normal. Procedure Note Uri Denis MD - 04/11/2025 PROCEDURE: CT UROGRAM, DATE/TIME OF EXAM: 04/11/2025 2:20 PM, [facility] INDICATION: R33.9: Urinary retention ADDITIONAL CLINICAL INFORMATION: Ordering Provider Reason For Exam: gross hematuria Technologist Note: Additional: COMPARISON: CT urogram 01/04/2024. TECHNIQUE: CT urography of the abdomen and pelvis was performed prior to and afterthe uneventful administration of 100 mL of Isovue 370 intravenous contrast according to a urography protocol. Multiplanar reconstructions and MIP images were produced. Findings: Lower Chest: Normal. Liver: Normal. Gallbladder and Bile Ducts: Normal. Spleen: Normal. Pancreas: Annulus pancreas is redemonstrated. Adrenals: Normal. Kidneys: Bilateral subcentimeter hypoattenuating renal lesions are too small to characterize but likely representing cysts No filling defect in the bilateral renal collecting systems to suggest urothelial mass. No renal calculus or hydronephrosis. Urinary Bladder: No calculi. Gastrointestinal: The stomach and visualized loops of large and small bowel areunremarkable. Normal appendix. 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 Reproductive Organs: Small bilateral hydrocele. Vasculature: No vascular abnormality is present. Bones: Bone windows demonstrate no suspicious lytic or blastic lesions. The visible osseous structures are intact. Left total hip arthroplasty. Soft tissues: Normal. Impression: No filling defect in the bilateral renal collecting systems to suggest urothelial mass. No renal calculus. > Dictated by Levi Duran MD (residential designer). I, Uri Denis MD have personally reviewed and interpreted this examination/study. > Interpreting Provider: Uri Denis MD on 04/11/2025 3:08 PM Ry[address] Crystal MD CT ORDERABLES Final Result * (ABNORMAL) CREATININE - POCT INTERFACED (04/11/2025 1:25 PM CDT) Creatinine POCT 1.28 0.30 - 1.30 mg/dL 04/11/2025 1:40 PM CDT [facility] eGFR 60(L) >=90 mL/min/1.7 3 m2 04/11/2025 1:40 PM CDT [facility] Blood BLOOD SPECIMEN / Unknown 04/11/2025 1:25 PM CDT 04/11/2025 1:40 PM CDT Ryder Crystal MD LAB - POINT OF CARE ORDERABLES F inal Result [address] [address], [facility] [phone] * CYTOLOGY NON-MORTUARY OPERATIONS MANAGER PANEL (STL) (03/28/2025 1:20 PM CDT) Only the most recent of2 resultswithin the time period is included. Case Report Medical Cytology Report Case: [id number] Authorizing Provider: Ryder Crystal MD Collected: 03/28/2025 01:20 PM Ordering Location: [facility] - Received: 03/28/2025 01:37 PM Urology Pathologist: Shelby Becker MD Specimen: Urine 04/01/2025 12:46 PM CDT U PATHOLOGY LAB Specimen Adequacy Adequate cellularity for evaluation. 04/01/2025 12:46 PM CDT U PATH[facility]Y LAB Final Diagnosis Urine, cytology: - Atypical urothelial cell clusters present - Acute inflammation and scattered red blood cells present 04/01/2025 12:46 PM CDT [facility] at 1245 CDT Clinical History Hematuria 04/01/2025 12:46 PM CDT U PATHOLOGY LAB Gross Description 1 Pap stained ThinPrep slide from 100cc yellow fluid 04/01/2025 12:46 PM CDT U PATHOLOGY LAB Pathologist Location at [facility] 04/01/2025 12:46 PM CDT U PATHOLOGY LAB Disclaimer The performance characteristics of all immunohistochemical and indirect immunofluorescence stains (if any) cited in this report were determined by the Histopathology Laboratory of [facility]. Some of these tests rely on the use of analyte-specific reagents and are subject to specific labeling requirements by the US Food and Drug Administration. Such tests were developed by the Histology Laboratory of [facility] and have not been cleared or approved by the FDA. The FDA has determined that such clearance and approval is not necessary. These tests are used for clinical purposes and should not be regarded as investigational or for research. This laboratory is certified under the Clinical Laboratory Improvement Amendments (CLIA) as qualified to perform high complexity clinical laboratory testing. This case has been personally reviewed and interpreted by the attending (teaching) pathologist. 04/01/2025 12:46 PM CDT [facility] Embedded Images 04/01/2025 12:46 PM CDT [facility] Pathology/Cytolo gy URINE / Unknown Collection / Unknown 03/28/2025 1:20 PM CDT 03/28/2025 1:37 PM CDT Ryder Crystal MD LAB - PATHOLOGY/CYTOLOGY ORDERAB LES Final Result [facility] [address] [place], [place] [id number] [place] [address] * (ABNORMAL) CULTURE URINE (03/21/2025 2:30 PM CDT) Culture Urine >100,000 CFU/mL Escherichia coli(A) MICHELL 03/23/2025 3:57 AM CDT [facility] Urine URINE SPECIMEN OBTAINED BY CLEAN CATCH PROCEDURE / Unknown Collection / Unknown 03/21/2025 2:30 PM CDT 03/21/2025 4:20 PM CDT Narrative Organism Antibiotic Method Susceptibility Escherichia coli Amikacin MICHELL <=2 ug/mL: Susceptible Escherichia coli Ampicillin MICHELL <=2 ug/mL: Susceptible Escherichia coli Ampicillin-sulbactam MICHELL <=2 ug/mL: Susceptible Escherichia coli Cefazolin MICHELL <=4 ug/mL: See Comment* Escherichia coli Cefazolin-Urine (uncomplicated infections ONLY) MICHELL <=4 ug/mL: Susceptible Escherichia coli Cefepime MICHELL <=1 ug/mL: Susceptible Escherichia coli Ceftriaxone MICHELL <=1 ug/mL: Susceptible Escherichia coli Ciprofloxacin MICHELL <=0.25 ug/mL: Susceptible Escherichia coli Gentamicin MICHELL <=1 ug/mL: Susceptible Escherichia coli Meropenem MICHELL <=0.25 ug/mL: Susceptible Escherichia coli Piperacillin-tazobactam MICHELL <=4 ug/mL: Susceptible Escherichia coli Tobramycin MICHELL <=1 ug/mL: Susceptible Escherichia coli Trimethoprim-sulfame thoxa zole MICHELL <=20 ug/mL: Susceptible Comment: *Cefazolin MICHELL of </=4 cannot distinguish between susceptible or intermediate for systemic breakpoints. If further defined interpretation is needed, call Microbiology and a disk diffusion test will be performed. Urine breakpoints for cefazolin should only be used when treating uncomplicated UTIs including men and women without urologic abnormality, kidney stones, stents, nephrostomy tubes, signs/symptoms of systemic illness, or pelvic/perineal pain in men. Cefazolin results can be used to predict susceptibility to oral cephalosporins - cephalexin, cefprozil, cefaclor, cefuroxime, cefdinir, and cefpodoxime. For complicated UTIs, use alternative cefazolin susceptibility result above. us Ryder Crystal MD LAB - MICROBIOLOGY ORDERABLES Fi nal Result [facility] [address] [place] [address], [facility] [phone] * PSA FREE + TOTAL PANEL (03/21/2025 2:01 PM CDT) Pathologist [facility] PSA Total 0.8 <4.0 ng/mL 03/21/2025 3:19 PM [facility] PSA Free 0.19 0.00 - 0.50 ng/mL 03/21/2025 3:19 PM [facility] PSA % Free 24 See Comment % 03/21/2025 3:19 PM [facility] PSA % Free 03/21/2025 3:19 PM [facility] Blood BLOOD SPECIMEN / Unknown Lab Venipuncture / Unknown 03/21/2025 2:01 PM CDT 03/21/2025 2:09 PM CDT [facility] - 03/21/2025 3:19 PM T The measurement of free PSA, total PSA, and the calculation of % Free PSA (%fPSA) may be used as an aid in discriminating between prostate cancer and benign disease in individuals 50 years of age or older, with a total PSA between 4-10 ng/mL and a digital rectal exam (HILARIO) nonsuspicious for cancer. In this cohort of individuals, the probability of prostate cancer decreases with increasing percentages of % Free PSA (see table below) Probability of Prostate Cancer by Disease Prevalence for Subjects with Total PSA between 4-10 ng/mL and HILARIO Nonsuspicious for Prostate Cancer (% fPSA) Disease Prevalence <10 >10-15 >15-20 >20-26 >26 --------- --------- --------- --------- --------- 25 44.0 32.9 23.4 16.0 10.6 29 48.6 37.1 26.9 18.6 12.5 35 56.0 44.2 33.1 23.5 16.1 The measurement of free PSA or the % Free PSA is not an absolute test for malignancy. The PSA values should be used in conjunction with information available from the clinical evaluation and other diagnostic procedures. A prostatic biopsy is required for diagnosis of cancer. PSA values will vary depending on the testing procedure used. Results are not comparable across different test methods. [facility] uses the Hibernanity immunoassay test method. Reference: Hibernanity Package Insert us Ryder Crytsal MD LAB - CHEMISTRY ORDERABLES Final Result [facility] [address] [place] [address], [facility] [phone] * URINALYSIS AUTO - POINT OF CARE (AMB) [facility] (03/21/2025 1:37 PM CDT) Glucose UA 3+ Bilirubin UA POCT Negative Ketones UA POCT Negative Specific [place] UA 1.020 Blood Urine POCT 3+ pH UA 5.5 Protein UA Negative Urobilinogen UA 0.2 Nitrite UA Positive WBC UA Negative Urine URINE / Unknown 03/21/2025 1 :37 PM CDT us Ryder Crystal MD LAB - POINT OF CARE ORDERABLES F inal Result * US Retroperitoneal Complete (03/18/2025 9:04 AM CDT) Anatomical Region Laterality Modality Abdomen Ultrasound 03/18/2025 9:27 AM CDT Impressions 03/18/2025 10:53 AM CDT IMPRESSION: 1.Normal renal size. No evidence of nephrolithiasis, hydronephrosis, or solid renal mass. Post void images could not be obtained. 2.Small left pleural effusion. > Dictated by Keiry Rapp MD, (residential designer). > Dictated by Keiry Rapp MD (Song Lyricist) 03/18/2025 9:27 AM I, Yoselin Fonseca MD have personally reviewed and interpreted this examination/study. > Interpreting Provider: Yoselin Fonseca MD on 03/18/2025 10:53 AM Narrative 03/18/2025 10:53 AM CDT EXAMINATION: Complete retroperitoneal sonogram HISTORY: R33.9: Urinary retention COMPARISON: CT urogram 01/04/2024 FINDINGS: Right kidney: 10.3 x 5.2 x 6.0 cm, right renal volume 170.53 mL. Left kidney: 11.8 x 5.6 x 4.6 cm, left renal volume 158.79 mL. Renal parenchymal echogenicity is normal. There is no evidence of a solid renal mass, renal calculi, or hydronephrosis. Subcentimeter simple cyst in the inferior left kidney. Blood flow is seen within the renal arteries and veins. The bladder is distended. Postvoid images could not be obtained (as the patient did not have straight catheter with him). Incidental left pleural effusion. Procedure Note Lisa Fonseca MD - 03/18/2025 EXAMINATION: Complete retroperitoneal sonogram HISTORY: R33.9: Urinary retention COMPARISON: CT urogram 01/04/2024 FINDINGS: Right kidney: 10.3 x 5.2 x 6.0 cm, right renal volume 170.53 mL. Left kidney: 11.8 x 5.6 x 4.6 cm, left renal volume 158.79 mL. Renal parenchymal echogenicity is normal. There is no evidence of asolid renal mass, renal calculi, or hydronephrosis. Subcentimeter simple cystin the inferior left kidney. Blood flow is seen within the renal arteriesand veins. The bladder is distended. Postvoid images could not be obtained(as the patient did not have straight catheter with him). Incidental left pleural effusion. IMPRESSION: 1.Normal renal size. No evidence of nephrolithiasis, hydronephrosis, or solid renal mass. Post void images could not be obtained. 2.Small left pleural effusion. > Dictated by Keiry Rapp MD, (residential designer). > Dictated by Keiry Rapp MD (Song Lyricist) 03/18/2025 9:27 AM IYoselin MD have personally reviewed and interpreted this examination/study. > Interpreting Provider: Yoselin Fonseca MD on 03/18/2025 10:53 AM Clarke Dumont US ORDERABLES Final Result * (ABNORMAL) HEMOGLOBIN A1C (02/02/2022 2:37 AM CDT) Hemoglobin A1c 7.0(H) <=5.6 % 02/02/2022 10:59 AM CDT [facility] Estimated Average Glucose 154 mg/dL 02/02/2022 10:59 AM CDT [facility] Comment: HbA1c Interpretation: Normal : < 5.7% Pre-diabetes: 5.7-6.4% Diabetes: Equal to or greater than 6.5% Test results diagnostic of diabetes should be repeated for confirmation. Treatment target values recommended by ADA and other clinical organizations should be used to evaluate metabolic control in patients. Reference: [place] [employer], Standards of Care in Diabetes -2020 In patients 70 years and older consider HbA1c target range of 7.0-7.5% (Reference: Major Herrera et al. JAMDA. 2012) The Sebia assay for the measurement of HbA1c is a National Glycohemoglobin Standardization Program (NGSP) certified method. Blood BLOOD SPECIMEN / Unknown Lab Venipuncture / Unknown 02/02/2022 2:37 AM CDT 02/02/2022 3:23 AM CDT us Duke Russell MD LAB - CHEMISTRY ORDERABLES Final Result Performing Organization Address City/[facility]/ZIP Co de Phone Number [address] [address], [place] [phone] * HEPATITIS C AB SCREEN RFLX NAAT QUANT (01/27/2022 5:08 AM CDT) Pathologist [facility] Hepatitis C Antibody Non-react maria r Non-reac tive 01/27/2022 6:44 AM CDT [facility] Comment:Hepatitis C Antibody screen indicates no serologic [...] 5:08 AM CDT 01/27/2022 5:12 AM CDT us Raul Henderson MD LAB - CHEMISTRY ORDERABLES Final Result Performing Organization Address City/[facility]/ZIP Co de Phone Number [address] [address], [place] [phone] from Last 3 Months or Most Recently Relevant to Health Maintenance Insurance MEDICARE Advance Directives * Full Code (Latest Code Status on File) Date Activated Date Inactivated Comments 02/01/2022 10:20 AM 02/04/2022 3:10 PM * Full Code Date Activated Date Inactivated Comments 01/27/2022 4:56 AM 01/30/2022 12:54 PM Care Teams Dock Attendant Relationship Specialty Start Date End Date Anuel Bowman DO PCP - General Internal Medicine 01/27/22
--- OUTSIDE RECORDS SUMMARY | 2025-05-23 11:14 | XMS_ITS | Clinical Summary ---
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 Active pregabalin (LYRICA) 200 MG capsuleIndication s:Lumbar [...] (two) times daily. 60 tablet 3 05/16/20 23 Active Calcium Carbonate-Vit D-Min (CALCIUM 1200 OR) [...] Encounters Date Type Department Care Team Description 03/26/2025 2:37 AM CDT - 03/26/2025 5:46 AM CDT Emergency [facility] Emergency Room [address] [place] [id number] Surekha Alonso MD Rib Pain (Left) Discharge Disposition: Home or Self Care (Routine Discharge) 03/26/2025 Travel 03/22/2025 6:37 PM CDT - 03/22/2025 10:49 PM CDT Emergency [facility] Emergency Room [address] [place] [id number] Nirav Dill MD Smith, Jennifer C, MD Leg Pain Discharge Disposition: Home or Self Care (Routine Discharge) 03/22/2025 Travel 02/24/2025 6:06 PM CDT - 02/24/2025 7:03 PM CDT Emergency [facility] Emergency Room [address] [place] [id number] Charu Diamond MD Med Refills Discharge Disposition: Home or Self Care (Routine Discharge) 02/24/2025 Travel from Last 3 Months Family History [...] drink = 0.6 oz pur e alcohol) [facility] Utilities Answer Date Recorded In the past [...] place to sleep or slept in a retirement (including now)? No 05/13/2023 Housing Stability Vital Sign Answer Isma e Recorded In the last 12 months, was t here a time when you were not able to pay the mortgage or rent on time? No 09/26/2024 In the past 12 months, how m any times have you moved where you were living? 1 09/26/2024 At any time in the past 12 m [facility], were you homeless or living in a retirement (including now)? 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 Not on file Not on file Not on file Last Filed Vital Signs Vital Sign Reading Time Taken Comments Blood Pressure 143/90 03/26/2025 5:30 AM CDT Pulse 80 03/26/2025 5:30 AM CDT Temperature 36.7 C (98 F) 03/26/2025 5:30 AM CDT Respiratory Rate 20 03/26/2025 5:30 AM CDT Oxygen Saturation 94% 03/26/2025 5:30 AM CDT Inhaled Oxygen Concentration - - Weight 108.9 kg (240 lb) 03/26/2025 2:35 AM CDT Height 172.7 cm (5' 8) 03/26/2025 2:35 AM CDT Body Mass Index 36.49 03/26/2025 2:35 AM CDT Plan of Treatment Health Maintenance Due Date Last Done Comments Colorectal Cancer Screening Colonoscopy (10 Years) 1955 DTaP, Tdap and Td Vaccines ( 1 - Tdap) 1974 Pneumococcal Vaccine: 50+ Years (1 of 1 - PCV) 2005 Annual Medicare Wellness Visit 01/25/2020 COVID-19 Vaccine (3 - 2023-2 5 [...] Procedure Name Priority Date/Time Associated Diagnosis Comments TROPONIN, QUANT STAT 03/26/2025 4:43 AM CDT XR CHEST PORTABLE STAT 03/26/2025 3:4 0 AM CDT PROTHROMBIN TIME, VENOUS STAT 03/26/2025 3:00 AM CDT PRO-BRAIN NATRIURETIC PEPTIDE STAT 03/26/2025 3:00 AM CDT TROPONIN, QUANT STAT 03/26/2025 3:00 AM CDT COMPREHENSIVE METABOLIC PANEL STAT 03/26/2025 3:00 AM CDT CBC W/DIFF AUTOMATED STAT 03/26/2025 3:00 AM CDT ECG 12-LEAD Routine 03/26/2025 2:41 AM CDT ECG 12-LEAD Routine 03/22/2025 9:45 PM CDT URINALYSIS, AUTO, COMPLETE STAT 03/22/2025 9:40 PM CDT CTA CHEST+ABD+PEL STAT 03/22/2025 8:1 4 PM CDT ECG 12-LEAD Routine 03/22/2025 7:54 PM CDT MAGNESIUM STAT 03/22/2025 7:10 PM CDT COMPREHENSIVE METABOLIC PANEL STAT 03/22/2025 7:10 PM CDT PARTIAL THROMBOPLASTIN TIME,PTT STAT 03/22/2025 7:10 PM CDT PROTHROMBIN TIME, VENOUS STAT 03/22/2025 7:10 PM CDT CBC W/DIFF AUTOMATED STAT 03/22/2025 7:10 PM CDT from Last 3 Months Results * TROPONIN, QUANT (03/26/2025 4:43 AM CDT) Only the most recent of2 resultswithin the time period is included. TROPONIN I HIGH SENSITIVITY 4 0 - 75 ng/L 03/26/2025 5:09 AM CDT [facility] Comment: HIGH DOSES OF BIOTIN, TROPONIN-SPECIFIC AUTOANTIBODIES, AND ANTIBODY THERAPY CONTAINING HAMA MAY INTERFERE WITH THIS TEST RESULT. CORRELATION TO CLINICAL HISTORY AND PRESENTATION RECOMMENDED. 03/26/2025 4:43 AM CDT us Surekha Alonso MD LABORATORY Final Result [facility] [address] [place] [address], [place] [phone] * XR CHEST PORTABLE (03/26/2025 3:40 AM CDT) Anatomical Region Laterality Modality Chest Radiographic Jayla ging 03/26/2025 3:43 AM CDT Impressions 03/26/2025 3:44 AM CDT IMPRESSION: 1. No acute pulmonary disease. Referred By: Interpreted By: Ni Saucedo MD, 03/26/2025 3:43 AM Narrative 03/26/2025 3:44 AM CDT [facility] [address] [place] [id number] EXAMINATION: XR Portable CXR, 1 View INDICATION: Chest pain, left-sided rib pain. COMPARISON: None FINDINGS: The cardiomediastinal silhouette is within normal limits. Pulmonary vascularity is normal. Slightly low lung volumes, likely poor inspiratory effort. No acute infiltrate, consolidation, pneumothorax, or pleural effusion. No acute osseous abnormality. Procedure Note Ni Saucedo MD - 03/26/2025 [facility] [address] [place] [id number] EXAMINATION: XR Portable CXR, 1 View INDICATION: Chest pain, left-sided rib pain. COMPARISON: None FINDINGS: The cardiomediastinal silhouette is within normal limits. Pulmonaryvascularity is normal. Slightly low lung volumes, likely poor inspiratoryeffort. No acute infiltrate, consolidation, pneumothorax, or pleuraleffusion. No acute osseous abnormality. IMPRESSION: 1. No acute pulmonary disease. Referred By: Interpreted By: Ni Saucedo MD, 03/26/2025 3:43 AM Surekha Alonso MD GENERAL IMAGING Final Result * PRO-BRAIN NATRIURETIC PEPTIDE (03/26/2025 3:00 AM CDT) PRO-B TYPE NATRIURETIC PEPTIDE 71 <125 PG/ML 03/26/2025 3:34 AM CDT [facility] Comment: CUT POINTS ESTABLISHED BY [employer]NATIONAL [employer] ON NT PROBNP (ICON) STUDY (2006). AGE INDEPENDENT: <300 PG/ML HAS A 99% NEGATIVE PREDICTIVE VALUE FOR EXCLUDING ACUTE CHF <50 YEARS: >450 PG/ML IS CONSISTENT WITH ACUTE CHF 50-75 YEARS: >900 PG/ML IS CONSISTENT WITH ACUTE CHF >75 YEARS: >1800 PG/ML IS CONSISTENT WITH ACUTE CHF IN PATIENTS WITH RENAL INSUFFICIENCY (GFR <60), >1200 PG/ML YIELDS A DIAGNOSTIC SENSITIVITY AND SPECIFICITY OF 89% AND 72% FOR ACUTE CHF. 03/26/2025 3:00 AM CDT us Surekha Alonso MD LABORATORY Final Result Performing Organization Address [facility] de Phone Number [facility] [address] [place] [address], [place] [phone] * (ABNORMAL) PROTIME/INR, VENOUS (03/26/2025 3:00 AM CDT) Only the most recent of2 resultswithin the time period is included. PROTIME 16.8(H) 9.1 - 12.4 SEC 03/26/2025 3:24 AM CDT [facility] INR 1.5 03/26/2025 3:24 AM CDT [facility] Comment: Recommend INR ranges for Oral Anticoagulant Therapy: Mechanical Cardiac Values 2.5-3.5 All others indication 2.0-3.0 03/26/2025 3:00 AM CDT us Surekha Alonso MD LABORATORY Final Result Performing Organization Address [facility] Co de Phone Number [facility] [address] [place] [address], [place] [phone] * (ABNORMAL) COMPREHENSIVE METABOLIC PANEL (03/26/2025 3:00 AM CDT) Only the most recent of2 resultswithin the time period is included. GLUCOSE 242(H) 70 - 99 MG/DL 03/26/2025 3:34 AM CDT [facility] BUN 19(H) 7 - 18 MG/DL 03/26/2025 3:34 AM CDT [facility] CREATININE S/P/B 1.30 0.7 - 1.3 MG/DL 03/26/2025 3:34 AM CDT [facility] SODIUM S/P/B 135(L) 136 - 145 MMOL/L 03/26/2025 3:34 AM [facility] POTASSIUM S/P/B 3.7 3.5 - 5.1 MMOL/L 03/26/2025 3:34 AM [facility] CHLORIDE S/P/B 101 100 - 108 MMOL/L 03/26/2025 3:34 AM T [facility] CO2 28.7 21 - 32 MMOL/L 03/26/2025 3:34 AM [facility] CALCIUM S/P/B 9.4 8.5 - 10.1 MG/DL 03/26/2025 3:34 AM [facility] BILIRUBIN TOTAL S/P/B 0.6 0.2 - 1.2 MG/DL 03/26/2025 3:34 AM [facility] TOTAL PROTEIN S/P/B 6.7 6.4 - 8.2 G/DL 03/26/2025 3:34 AM [facility] ALBUMIN S/P/B 2.8(L) 3.4 - 5.0 G/DL 03/26/2025 3:34 AM [facility] AST 23 15 - 37 U/L 03/26/2025 3:34 AM [facility] ALT 33 16 - 60 U/L 03/26/2025 3:34 AM [facility] ALKALINE PHOSPHATASE S/P/B 83 50 - 136 U/L 03/26/2025 3:34 AM [facility] ANION GAP 5.3 5 - 15 MMOL/L 03/26/2025 3:34 AM [facility] BUN CREATININE RATIO 14.6 6 - 26 03/26/2025 3:34 AM [facility] A/G RATIO 0.7(L) 1.0 - 2.0 RATIO 03/26/2025 3:34 AM CDT [facility] GFR ESTIMATE 59(L) >90 ML/MIN/1.7 3 M2 03/26/2025 3:34 AM CDT [facility] Comment: NOTE: eGFR is not calculated for patients <18 years of age. This is an estimated GFR calculation using the new CKD EPI creatinine equation without race and so does not require a correction factor for race. This estimated GFR should not be used for calculating drug doses. 03/26/2025 3:00 AM CDT Surekha Alonso MD LABORATORY Final Result [facility] [address] [place] [address], * (ABNORMAL) CBC W/DIFF AUTOMATED (03/26/2025 3:00 AM CDT) Only the most recent of2 resultswithin the time period is included. WBC 6.22 4.4 - 11.0 x10'3/uL 03/26/2025 3:13 AM CDT [facility] RBC 5.17 4.50 - 5.90 x10'6/uL 03/26/2025 3:13 AM CDT [facility] HGB 13.8(L) 14.0 - 17.5 G/DL 03/26/2025 3:13 AM CDT [facility] HCT 42.1 41.5 - 50.4 % 03/26/2025 3:13 AM CDT [facility] MCV 81.4 80.0 - 96.0 FL 03/26/2025 3:13 AM CDT [facility] MCH 26.7 26.5 - 31.4 PG 03/26/2025 3:13 AM CDT [facility] MCHC 32.8 31.9 - 34.8 G/DL 03/26/2025 3:13 AM CDT [facility] RDW 14.0 12.3 - 14.3 % 03/26/2025 3:13 AM T [facility] PLT 165 151 - 353 x10'3/uL 03/26/2025 3:13 AM T [facility] MPV 10.7 9.7 - 11.9 FL 03/26/2025 3:13 AM T [facility] RBC MORPHOLOGY NORMAL 03/26/2025 3:13 AM T [facility] PLT MORPH. NORMAL 03/26/2025 3:13 AM T [facility] WBC MORPHOLOGY NORMAL 03/26/2025 3:13 AM T [facility] LYMPHOCYTES % 17.5 15.8 - 45.0 % 03/26/2025 3:13 AM T [facility] NEUTROPHILS % 68.9 42.1 - 71.9 % 03/26/2025 3:13 AM T [facility] MONOCYTES % 12.1 5.7 - 12.5 % 03/26/2025 3:13 AM [facility] EOSINOPHILS 0.8 0.0 - 5.6 % 03/26/2025 3:13 AM T [facility] BASOPHILS 0.5 0.0 - 1.3 % 03/26/2025 3:13 AM T [facility] ABS. NEUTROPHILS 4.29 1.40 - 6.00 x10'3/uL 03/26/2025 3:13 AM T [facility] IMMATURE GRANS % 0.2 0.0 - 0.5 % 03/26/2025 3:13 AM T [facility] ABS. LYMPHOCYTES 1.09 0.80 - 4.70 x10'3/uL 03/26/2025 3:13 AM CDT [facility] 03/26/2025 3:00 AM CDT Surekha Alonso MD LABORATORY Final Result [facility] [address] [place] [address], * ECG 12 lead (03/26/2025 2:41 AM CDT) Only the most recent of3 resultswithin the time period is included. 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: : 1955 Requested By: SUREKHA ALONSO Order Number: [id number] Reading MD: John Desai Measurements Intervals [place] Rate: 77 P: 56 LA: 198 QRS: -30 QRSD: 103 T: 29 QT: 372 QTc: 423 Interpretive Statements SINUS RHYTHM BORDERLINE LEFT AXIS DEVIATION [QRS AXIS < -20] LOW QRS VOLTAGE IN PRECORDIAL LEADS [QRS DEFLECTION < 1.0 mV IN CHEST LEADS] PATTERN CONSISTENT WITH PULMONARY DISEASE Compared to ECG 03/22/2025 21:45:31 Low QRS voltage now present Sinus tachycardia no longer present Poor R-wave progression no longer present Procedure Note John Desai MD - 03/26/2025 [facility] Test Date: 2025-03-26 Pat Name: SAULO CURRAN Department: 85 Room: EXAM 303 Gender: Male 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: : 1955 Requested By: SUREKHA ALONSO Order Number: [id number] Reading MD: John Desai Measurements Intervals [place] Rate: 77 P: 56 [place]: 198 QRS: -30 QRSD: 103 T: 29 QT: 372 QTc: 423 Interpretive Statements SINUS RHYTHM BORDERLINE LEFT AXIS DEVIATION [QRS AXIS < -20] LOW QRS VOLTAGE IN PRECORDIAL LEADS [QRS DEFLECTION < 1.0 mV IN CHESTLEADS] PATTERN CONSISTENT WITH PULMONARY DISEASE Compared to ECG 03/22/2025 21:45:31 Low QRS voltage now present Sinus tachycardia no longer present Poor R-wave progression no longer present us Surekha Alonso MD ECG ORDERABLES Final Result [facility] ([facility] RAD * (ABNORMAL) URINALYSIS, AUTO, COMPLETE (03/22/2025 9:40 PM CDT) COLOR (U) YELLOW 03/22/2025 10:13 PM CDT [facility] TRANSPARENCY HAZY 03/22/2025 10:13 PM CDT [facility] SPECIFIC GRAVITY (U) 1.015 1.000 - 1.030 03/22/2025 10:13 PM CDT [facility] U PH 5.5 5.0 - 9.0 03/22/2025 10:13 PM CDT [facility] LEUKOCYTES (U) NEGATIVE NEGATIVE 03/22/2025 10:13 PM CDT [facility] NITRITES NEGATIVE NEGATIVE 03/22/2025 10:13 PM CDT [facility] PROTEIN RANDOM (U) NEGATIVE NEGATIVE 03/22/2025 10:13 PM CDT [facility] GLUCOSE (U) 3+(A) NEGATIVE 03/22/2025 10:13 PM CDT [facility] KETONES MG/DL (U) TRACE(A) NEGATIVE 03/22/2025 10:13 PM CDT [facility] BILIRUBIN (U) NEGATIVE NEGATIVE 03/22/2025 10:13 PM CDT [facility] BLOOD (U) 3+(A) NEGATIVE 03/22/2025 10:13 PM CDT [facility] WBC/HPF 0-5 0 - 5 /HPF 03/22/2025 10:13 PM CDT [facility] RBC/HPF 25-50 0 - 5 /HPF 03/22/2025 10:13 PM CDT [facility] EPI/HPF RARE /HPF 03/22/2025 10:13 PM CDT [facility] BACTERIA (U) FEW /HPF 03/22/2025 10:13 PM CDT [facility] URINE, STRAIGHT CATH 03/22/2025 9:40 PM CDT us Va Levy MD URINE ORDERABLES Final Resul t [facility] [address] [place] [address], [place] [phone] * CTA CHEST+ABD+PEL (03/22/2025 8:14 PM CDT) Anatomical Region Laterality Modality Chest, Abdomen, Pelvis Computed Tomography 03/22/2025 8:57 PM CDT Impressions 03/22/2025 9:14 PM CDT IMPRESSION: 1. Normal CT angiogram of the chest, abdomen, and pelvis, without evidence of aneurysm, dissection, or significant arterial stenosis. Remarkably minimal atherosclerosis given patient age. 2. Tiny locule of intraluminal gas present within the urinary bladder. This could be secondary to instrumentation or infectious etiology. 3. Incidental note of complete annular pancreas, a benign anatomic variant that is frequently associated with pancreatitis. No evidence of acute pancreatitis on this study. 4. Diffuse hepatic steatosis. 5. Trace teresa mesentery about the jejunal mesenteric root, with some mildly prominent lymph nodes in this region exhibiting a halo of fatty sparing. Findings are nonspecific but can be seen in sclerosing mesenteritis as well as a broad differential. No dedicated further imaging recommended. Referred By: Interpreted By: Merrick Villasenor MD, 03/22/2025 8:57 PM Narrative 03/22/2025 9:14 PM CDT [facility] [address] [place] [address] INDICATION: Acute onset lower abdominal pain radiating into back and bilateral lower extremities. Concern for aortic dissection COMPARISON: None TECHNIQUE: CTA images of the chest, abdomen, and pelvis were obtained prior to and following the administration of IV contrast. MIP reconstructions were synthesized. Radiation dose reduction technique utilized FINDINGS: VASCULATURE: Aortic root, ascending aorta, aortic arch, and descending thoracic aorta are unremarkable. No aneurysmal dilatation or dissection. Great vessels of the aortic arch exhibit typical anatomic configuration. Nonaneurysmal abdominal aorta does not demonstrate significant flow limiting stenosis. Celiac axis, SMA, and bilateral renal arteries are normal. Right common, internal, and external iliac arteries are patent without stenosis. Left common, internal, and external iliac arteries are patent without stenosis. No evidence of hemorrhage, dissection, or pseudoaneurysm formation. Study is technically inadequate for evaluation for pulmonary emboli; no saddle emboli present. CHEST: Borderline cardiomegaly. No significant pericardial effusion. No mediastinal, hilar, or axillary lymphadenopathy. No suspicious thyroid nodule. Esophagus within normal limits. Trachea and central airways are patent. No pneumothorax. No focal airspace consolidation. No pleural effusion. ABDOMEN/PELVIS: Normal size liver. Diffuse hepatic steatosis. No suspicious hepatic lesion. Main portal vein, splenic vein, SMV, and SMA enhance. No retroperitoneal lymphadenopathy. Very minimal atherosclerosis of the abdominal and pelvic vasculature given patient age. No evidence of bowel obstruction or acute inflammation. Trace teresa mesentery about the jejunal mesenteric root with some mildly prominent lymph nodes in this region exhibiting a halo of sparing. Stomach within normal limits. Incidental note of a 1.3 cm probable benign lipoma in the second segment of the duodenum; no dedicated follow-up recommended. Top normal size spleen. Pancreas is exhibits no acute abnormality. Incidental note of annular pancreas, with pancreatic tissue completely surrounding the second segment of the duodenum. Adrenal glands within normal limits. Kidneys enhance symmetrically. No hydronephrosis or hydroureter. Streak artifact somewhat limits evaluation of the pelvic contents. Urinary bladder wall within normal limits; tiny locule of intraluminal gas present. Prostate and seminal vesicles within normal limits. Incidental note of benign pelvic phleboliths. No pelvic lymphadenopathy or significant free fluid. MSK: Left total hip arthroplasty, with no evidence of hardware complication. Chronic degenerative changes of the right hip. Mild chronic degenerative changes of the sacroiliac joints. Chronic multilevel degenerative changes of the spine. Visualized body wall exhibits no acute abnormality. Procedure Note Merrick Villasenor MD - 03/22/2025 [facility] [address] [facility] [place] [address] INDICATION: Acute onset lower abdominal pain radiating into back andbilateral lower extremities. Concern for aortic dissection COMPARISON: None TECHNIQUE: CTA images of the chest, abdomen, and pelvis were obtainedprior to and following the administration of IV contrast. MIPreconstructions were synthesized. Radiation dose reduction techniqueutilized FINDINGS: VASCULATURE: Aortic root, ascending aorta, aortic arch, and descending thoracic aortaare unremarkable. No aneurysmal dilatation or dissection. Great vessels ofthe aortic arch exhibit typical anatomic configuration. Nonaneurysmal abdominal aorta does not demonstrate significant flowlimiting stenosis. Celiac axis, SMA, and bilateral renal arteries arenormal. Right common, internal, and external iliac arteries are patent withoutstenosis. Left common, internal, and external iliac arteries are patent withoutstenosis. No evidence of hemorrhage, dissection, or pseudoaneurysm formation. Study is technically inadequate for evaluation for pulmonary emboli; nosaddle emboli present. CHEST: Borderline cardiomegaly. No significant pericardial effusion. No mediastinal, hilar, or axillary lymphadenopathy. No suspicious thyroidnodule. Esophagus within normal limits. Trachea and central airways are patent. No pneumothorax. No focal airspaceconsolidation. No pleural effusion. ABDOMEN/PELVIS: Normal size liver. Diffuse hepatic steatosis. No suspicious hepaticlesion. Main portal vein, splenic vein, SMV, and SMA enhance. No retroperitoneallymphadenopathy. Very minimal atherosclerosis of the abdominal and pelvicvasculature given patient age. No evidence of bowel obstruction or acute inflammation. Trace mistymesentery about the jejunal mesenteric root with some mildly prominentlymph nodes in this region exhibiting a halo of sparing. Stomach within normal limits. Incidental note of a 1.3 cm probable benignlipoma in the second segment of the duodenum; no dedicated follow-uprecommended. Top normal size spleen. Pancreas is exhibits no acuteabnormality. Incidental note of annular pancreas, with pancreatic tissuecompletely surrounding the second segment of the duodenum. Adrenal glandswithin normal limits. Kidneys enhance symmetrically. No hydronephrosis or hydroureter. Streak artifact somewhat limits evaluation of the pelvic contents. Urinarybladder wall within normal limits; tiny locule of intraluminal gaspresent. Prostate and seminal vesicles within normal limits. Incidentalnote of benign pelvic phleboliths. No pelvic lymphadenopathy orsignificant free fluid. MSK: Left total hip arthroplasty, with no evidence of hardware complication. Chronic degenerative changes of the right hip. Mild chronic degenerative changes of the sacroiliac joints. Chronic multilevel degenerative changes of the spine. Visualized body wall exhibits no acute abnormality. IMPRESSION: 1. Normal CT angiogram of the chest, abdomen, and pelvis, withoutevidence of aneurysm, dissection, or significant arterial stenosis.Remarkably minimal atherosclerosis given patient age. 2. Tiny locule of intraluminal gas present within the urinary bladder.This could be secondary to instrumentation or infectious etiology. 3. Incidental note of complete annular pancreas, a benign anatomicvariant that is frequently associated with pancreatitis. No evidence ofacute pancreatitis on this study. 4. Diffuse hepatic steatosis. 5. Trace teresa mesentery about the jejunal mesenteric root, with somemildly prominent lymph nodes in this region exhibiting a halo of fattysparing. Findings are nonspecific but can be seen in sclerosingmesenteritis as well as a broad differential. No dedicated further imagingrecommended. Referred By: Interpreted By: Merrick Villasenor MD, 03/22/2025 8:57 PM us Nirav Dill MD CT Final Result * (ABNORMAL) PARTIAL THROMBOPLASTIN TIME,PTT (03/22/2025 7:10 PM CDT) PTT 36.6(H) 25.1 - 36.5 SEC 03/22/2025 7:30 PM CDT [facility] 03/22/2025 7:10 PM CDT Nirav Dill MD LABORATORY Final Result [facility] [address] [place] [address], [place] [phone] * MAGNESIUM (03/22/2025 7:10 PM CDT) MAGNESIUM 1.8 1.8 - 2.4 MG/DL 03/22/2025 7:38 PM CDT [facility] 03/22/2025 7:10 PM CDT Nirav Dill MD LABORATORY Final Result Performing Organization Address City/[facility] Co de Phone Number [facility] [address] [place] [address], [place] [phone] from Last 3 Months Insurance MEDICARE [facility] Advance Directives Documents on File Type Date Recorded Patient Vp Care Management Expl anation Advance Directives and Livin g [...] 4:38 PM 05/13/2023 4:40 PM Care Teams 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
--- OUTSIDE RECORDS SUMMARY | 2025-05-23 11:14 | XMS_ITS | Clinical Summary ---
Author Organization [facility] Virtual Care Address [address] [place] [phone] Phone Care Team Providers Care Ticket Taker Ferryboat Name Role Phone Anuel Bowman DO Primary Care Provider [phone] Dionte Ovalles MD Unavailable [phone] Allergies Active Allergy Reactions Criticality Noted Date [...] (05/26/2021): Added automatically from request for surgery [id number] Immunizations Immunization Administration Dates Next Due [employer] SARS-CoV-2 Monovalent Vaccination (12+ Yrs) PURPLE 02/15/2021,01/25/2021 [...] on file Legal Sex Male 12:11 AM COMMUNITY DEVELOPMENT SPECIALIST Gender Identity Male 06/11/2021 2:32 PM CDT Sexual Orientation Straight 06/11/2021 2: 32 PM CDT Obstetrics History Last Filed Vital Signs Vital Sign Reading Time Taken Comments Blood Pressure 120/82 10/30/2024 2:23 PM COMMUNITY DEVELOPMENT SPECIALIST Pulse 69 10/30/2024 2:23 PM COMMUNITY DEVELOPMENT SPECIALIST Temperature 36.8 C (98.2 F) 05/31/2021 1:59 PM CDT Respiratory Rate 18 05/31/2021 3:00 PM CDT Oxygen Saturation 95% 10/30/2024 2:23 PM COMMUNITY DEVELOPMENT SPECIALIST Inhaled Oxygen Concentration - - Weight 108 kg (238 lb) 10/30/2024 2:23 PM COMMUNITY DEVELOPMENT SPECIALIST Height 172.7 cm (5' 8) 10/30/2024 2:23 PM COMMUNITY DEVELOPMENT SPECIALIST Body Mass Index 36.19 10/30/2024 2:23 PM COMMUNITY DEVELOPMENT SPECIALIST Plan of Treatment Health Maintenance Due Date Last Done Comments Colon Cancer Screening-Colonoscopy 1955 Depression Screening 1955 Fall Risk Assessment 1955 Hepatitis C Screening 1955 Hepatitis B Screening 1973 Pneumococcal vaccine 65+ (1 of 1 - PCV) 2005 Abdominal Aortic Aneurysm (A AA) Screen 01/25/2020 Well Visit 65+ 01/25/2020 Covid-19 Vaccine (3 - 2023-2 5 season) 2024 02/15/2021, 01/25/2021 Influenza Vaccine (Season Ended) 2025 08/16/2022, 08/22/2020, 08/18/2019, Additional history exists DTaP/Tdap/Td Vaccine (2 - Td or Tdap) 11/03/2025 11/03/2015 Zoster Vaccine Completed 08/22/2020, 11/13, 08/18/2019, Additional history exists Medical Devices Implanted Type Area Mine Exploration Engineer Device Identifier Shelf Expiration Date Model / Serial / Lot Depuy Orthopaedics Inc [id number] Thomson 54mm 36mm Hip Neutral Liner Acetabular Altrx Sterile Latex Free - [id number] Implanted:Qty: 1 on 05/31/2021 by Dionte Ovalles MD at [facility] Left: Hip Depuy Orthopaedics Inc 05/12/2026 [id number] / / [id number] Depuy Orthopaedics Inc [id number] Thomson 54mm Sector Hip Shell Acetabular Gription Sterile Latex Free - [id number] Implanted:Qty: 1 on 05/31/2021 by Dionte Ovalles MD at [facility] Left: Hip Depuy Orthopaedics Inc 04/12/2031 [id number] / / [id number] Depuy Orthopaedics Inc [id number] Actis L107 Mm Collar Hip 6 High Offset Stem Femoral - [id number] Implanted:Qty: 1 on 05/31/2021 by Dionte Ovalles MD at [facility] Left: Hip Depuy Orthopaed[employer] Inc 05/12/2031 [id number] / / [id number] Depuy Orthopaedics Inc [id number] Articul/Declan 36mm Cementless Hip +8.5mm 12/14 Taper Head Femoral Latex Free - [id number] Implanted:Qty: 1 on 05/31/2021 by Dionte Ovalles MD at [facility] Left: Hip Depuy Orthopaed[employer] Inc 02/10/2026 [id number] / / [id number] [place] [address] [employer] MEDICARE FOR LIFE Advance Directives For more information, please contact: [phone] * Full Code (Latest Code Status on File) Date Activated Date Inactivated Comments 05/31/2021 11:11 AM 05/31/2021 8:40 PM Care Teams Ticket Taker Ferryboat Relationship Specialty Start Date End Date Anuel Bowman DO PCP - General 11/02/15 Dionte Ovalles MD Surgeon Orthopedic Surgery 05/31/21
[2025-05-23 19:00] LABS: Hemoglobin A1C 11.0 % (<5.7)
== END 2025-05-23 11:11 | disposition home or self-care (01) ==
PROVIDERS: PCP Nurse Practitioner; Visit Provider Nurse Practitioner
DX: E11.9 Type 2 diabetes mellitus without complications (principal)
CPT/HCPCS: 36415; 83036

== ENCOUNTER 2025-07-07 08:50 | Outpatient (CLI) | payer MEDICARE, OTHER, SELFPAY ==
--- OUTSIDE RECORDS SUMMARY | 2025-07-07 09:13 | XMS_ITS | Continuity of Care Document ---
Author Name [facility] Organization [facility] Care Team Providers Care Stand In Name Role Phone [facility] Unavailable Unavailable Medications Combined list of outpatient [...] with your doctor before becoming . 05/07/2025 [id number] 4 2023 180 [facility] Marco [facility] [place] apixaban 5 mg tablet See Instruct ions, # 180 EA, 1 total refill(s ), Hard Stop Discont inued 05/29/2025 5 2024 180.0 Ambulat ory Pharmac y apixaban 5 mg tablet = 1 tab(s), Oral, BID, # [...] 3 2023 90.0 Ambulat ory Pharmac y dexAMETHaso ne 1 mg tablet See Instruct ions, # 1 EA, 1 total refill(s ), Soft Stop Ordered 5 2024 1.0 Ambulat ory Pharmac y diclofenac 1% topical [...] 2023 100.0 Ambulat ory Pharmac y Freestyle [place]bury Lite Monitor See Instruct ions, # 1 [...] 2023 50.0 Ambulat ory Pharmac y glucose sensor dexcom g7 See Instruct ions, # 9 EA, 1 total refill(s ), Soft Stop Ordered 5 2024 9.0 Ambulat ory Pharmac y glucose test strip (freestyle lite) See Instruct ions, # 400 EA, 1 total refill(s ), Soft Stop Ordered 5 2024 400.0 Ambulat ory Pharmac y Glyburide (DiaBeta) Tablet 5 mg Oral Do not drink alcohol. Avoid exposure to sun.Take or use exactly as directed . 05/07/2025 [id number] 4 2023 120 [facility] Marco GARRISON ([facility] glyBURIDE 5 mg tablet 10 mg, Oral, [...] 3 2022 20.0 Ambulat ory Pharmac y insulin glargine (Lantus SoloStar) 100 units/mL [3mL] See Instruct ions, 0, # 15 mL, 3 total refill(s ), Soft Stop Ordered 5 2024 15.0 Ambulat ory Pharmac y insulin glargine (Lantus SoloStar) 100 units/mL [3mL] See Instruct ions, SubCutan eous, # 15 mL, 3 total refill(s ), Soft Stop SubCut aneous (under the skin) Discont inued 06/12/2025 5 2024 15.0 Ambulat ory Pharmac y lancet freestyle 28g See Instruct ions, # 400 EA, 1 total refill(s ), Soft Stop Ordered 5 2024 400.0 Ambulat ory Pharmac y losartan (U/D) 100 MG ORAL TAB Be careful if taking OTCs.Aj e or use exactly as directed .Do not take if . 05/07/2025 [id number] 4 2023 90 [facility] Marco GARRISON ([facility] losartan 100 mg tablet 100 mg, Oral, [...] 3 2023 60.0 Ambulat ory Pharmac y needle pen 30g 8mm See Instruct ions, # 200 EA, 1 total refill(s ), Soft Stop Ordered 5 2024 200.0 Ambulat ory Pharmac y oxyCODONE 5 mg [...] with your doctor before becoming . 11/03/2024 [id number] 4 2023 180 [facility] Marco GARRISON ([facility] rOPINIRole 2 mg oral tablet TAKE TWO [...] becoming .Do not chew or crush. 05/07/2025 [id number] 4 [address] [place] [address] Marco GARRISON ([facility] Rybelsus 14 mg tablet 14 mg, Oral, [...] K Drug allergy (disorder) Unknown active [address] [place] [address] Marco GARRISON ([facility] penicillin V pota ium Drug allergy Unknown Severe Active swelling Ambulatory Pharmacy Immunizations Combined list of available immunizations from the Department of Defense and Veterans Affairs facilities. Immunization Series Date Given Administered By Site Reaction Lot Number CVX Code Drug Smt Technician Status Comments Source tetanus, diphtheria, acellular pertu is 2014 115 sanofi pasteur complet ed tetanus, diphtheri a, acellular pertussis 11/03/15 Given Ambulat ory Pharmac y Procedures Combined list of: 1) Procedures from Department of Veterans Affairs facilities going back up to thelast 18 months, not all [place] non-surgical procedures are included; 2) All procedures [...] Plan No data available for this section 07/07/2025 Ambulatory Pharmacy Functional Status Combined list of recent functional and cognitive assessments recorded at Department of Defense and Veterans Affairs ([place]).VA Functional [place] Measurement (FIM) Scale: 1 = Total Assistance (Subject = 0% +), 2 = Maximal Assistance (Subject = 25% +), 3 = Moderate Assistance (Subject = 50% +), 4 = Minimal Assistance (Subject = 75% +), 5 = Supervision, 6 = Modified [place] (Device), 7 = Complete [place] (Timely, Safely). Assessment Date/Time Source Assessment Type Assessment Skill Assessment Score Assessment Details No data available for this section
--- OUTSIDE RECORDS SUMMARY | 2025-07-07 09:14 | XMS_ITS | Clinical Summary ---
Author Organization [facility] Address [address] [facility] [place] [address] Care Team Providers Care Electrician Outside Name Role Phone Anuel Bowman DO Primary Care Provider [phone] Source Comments [facility],non-owned Affiliates and Associated Physician Practices is amultiple site organization consisting of ambulatory clinics and hospital sitesin [place], [place], [place]. This disclosure is being madepursuant to the Care Everywhere program and may not contain all information available regarding this patient. Last updated 18.[facility] Allergies Active Allergy Reactions Criticality Noted Date [...] (03/19/2025): Added automatically from request for surgery [id number] Resolved Problems Problem Noted Date Diagnosed Date Resolved Date Type 2 diabetes mellitus, wi thout long-term current use of insulin 02/01/2022 02/01/2022 Encounters Date Type Department Care Team Description 05/07/2025 2:36 PM CDT - 05/07/2025 11:59 PM CDT Hospital Encounter [facility] [address] [place] [phone] Ryder Crystal MD Discharge Disposition: Home or Self Care 05/07/2025 Results Follow-Up [facility] - Urology [address] [place] [address] Ryder Crystal MD 05/07/2025 Travel 04/12/2025 Results Follow-Up [facility] - Urology [address] [place] [phone] Ryder Crystal MD 04/11/2025 1:15 PM CDT - 04/11/2025 11:59 PM CDT Hospital Encounter [facility] [address] [place] [phone] Ryder Crystal MD Discharge Disposition: Home or Self Care 04/11/2025 Travel from Last 3 Months Immunizations Immunization [...] st Contact Info) Description 10/03/2025 10:30 AM SYRUPER [facility] [address] [place] [phone] Ryder Crystal MD [address] [place] [address] [place] [address] 02/11/2026 3:00 PM CDT Office Visit [facility] - Urology [address] [place] [phone] Clarke Munoz PA [address] [place] [phone] Health Maintenance Due Date Last Done Comments [...] 03/09/2020 Colorectal Cancer Screening 03/09/2023 COVID-19 VACCINE (3 - season) 2024 02/15/2021, 01/25/2021 DEPRESSION SCREENING 11/13/2024 02/03/2022 DIABETES - URINE PROTEIN SCREENING 11/13/2024 DIABETES-HGB A1C 03/27/2025 09/27/2024, 12/2022, 05/13/2023, Additional history exists INFLUENZA VACCINE (#1) 2025 2, 08/22/2020, 08/18/2019, Additional history exists DIABETES-SERUM CREATININE [...] Diagnosis Comments US SCROTUM AND CONTENTS Routine 05/07/2025 3:27 PM CDT Other hydrocele CT UROGRAM GEORGINA 04/11/2025 2:20 PM CDT Urinary retention CREATININE - POCT INTERFACED Routine 04/11/2025 1:25 PM CDT HEMOGLOBIN A1C Routine 02/02/2022 2:37 AM CDT [...] was drafted by Ani Mathis MD (residential mortgage manager) 05/07/2025 4:09 PM. I, Colleen Mays MD have personally reviewed and interpreted this examination/study. > Interpreting Provider: Colleen Mays MD on 05/07/2025 5:08 PM Narrative 05/07/2025 5:08 PM CDT PROCEDURE: US SCROTUM AND CONTENTS, DATE/TIME OF EXAM: 05/07/2025 3:27 PM, LOCATION [facility] INDICATION: N43.2: Other hydrocele ADDITIONAL CLINICAL INFORMATION: [...] CONTENTS, DATE/TIME OF EXAM: 05/07/2025 3:27PM, LOCATION [facility] INDICATION: N43.2: Other hydrocele ADDITIONAL CLINICAL INFORMATION: [...] was drafted by Ani Mathis MD (residential mortgage manager) 05/07/2025 4:09 PM. I, Colleen Mays MD have personally reviewed and interpreted this examination/study. > Interpreting Provider: Colleen Mays MD on 05/07/2025 5:08 PM us Ryder Crystal MD US ORDERABLES Final Result * CT Urogram (04/11/2025 2:20 PM CDT) Anatomical Region Laterality Modality Abdomen, Pelvis Computed Tomogra phy 04/11/2025 2:30 PM CDT Impressions 04/11/2025 3:08 PM CDT Impression: No filling defect in the bilateral renal collecting systems to suggest urothelial mass. No renal calculus. > Dictated by Levi Duran MD (resident services supervisor). Uri Guerra MD have personally reviewed and interpreted this examination/study. > Interpreting Provider: Uri Denis MD on 04/11/2025 3:08 PM Narrative 04/11/2025 3:08 PM CDT PROCEDURE: CT UROGRAM, DATE/TIME OF EXAM: 04/11/2025 2:20 PM, LOCATION [facility] INDICATION: R33.9: Urinary retention ADDITIONAL CLINICAL INFORMATION: [...] UROGRAM, DATE/TIME OF EXAM: 04/11/2025 2:20 PM, [facility] INDICATION: R33.9: Urinary retention ADDITIONAL CLINICAL INFORMATION: [...] calculus. > Dictated by Levi Duran MD (resident services supervisor). I, Uri Denis MD have personally reviewed and interpreted this examination/study. > Interpreting Provider: Uri Denis MD on 04/11/2025 3:08 PM us Ryder Crystal MD CT ORDERABLES Final Result * (ABNORMAL) CREATININE - POCT INTERFACED (04/11/2025 1:25 PM CDT) Creatinine POCT 1.28 0.30 - 1.30 mg/dL 04/11/2025 1:40 PM CDT [facility] eGFR 60(L) >=90 mL/min/1.7 3 m2 04/11/2025 1:40 PM CDT [facility] Blood BLOOD SPECIMEN / Unknown 04/11/2025 1:25 PM CDT 04/11/2025 1:40 PM CDT us Ryder Crystal MD LAB - POINT OF CARE ORDERABLES F inal Result [facility] [address] [place] [phone], [facility] [phone] * (ABNORMAL) HEMOGLOBIN A1C (02/02/2022 2:37 AM CDT) Pathologist [facility] Hemoglobin A1c 7.0(H) <=5.6 % 02/02/2022 10:59 AM CDT [facility] Estimated Average Glucose 154 mg/dL 02/02/2022 10:[address] [facility] Comment: HbA1c Interpretation: Normal : < 5.7% Pre-diabetes: 5.7-6.4% Diabetes: Equal to or greater than 6.5% Test results diagnostic of diabetes should be repeated for confirmation. Treatment target values recommended by ADA and other clinical organizations should be used to evaluate metabolic control in patients. Reference: [place] [employer] Association, Standards of Care in Diabetes [...] CDT Duke Russell MD LAB - CHEMISTRY ORDERABLES Final Result Performing Organization Address [facility] Co de Phone Number [facility] [address] [place] [phone], [place] [phone] * HEPATITIS C AB SCREEN RFLX NAAT QUANT (01/27/2022 5:08 AM CDT) Hepatitis C Antibody Non-react maria r Non-reac tive 01/27/2022 6:44 AM CDT [facility] Comment:Hepatitis C Antibody screen indicates no [...] CDT Raul Henderson MD LAB - CHEMISTRY ORDERABLES Final Result Performing Organization Address [facility] Co de Phone Number [address] [address], [place] [phone] from Last 3 Months or Most Recently Relevant to Health Maintenance Insurance MEDICARE Advance Directives * Full Code (Latest Code Status on File) Date Activated Date Inactivated Comments 02/01/2022 10:20 AM 02/04/2022 3:10 PM * Full Code Date Activated Date Inactivated Comments 01/27/2022 4:56 AM 01/30/2022 12:54 PM Care Teams Electrician Outside Relationship Specialty Start Date End Date Anuel Bowman DO PCP - General Internal Medicine 01/27/22
--- OUTSIDE RECORDS SUMMARY | 2025-07-07 09:14 | XMS_ITS | Encounter Summary ---
Author Organization [facility] Address [address] [facility] [place] [address] Care Team Providers Care Coil Winder Repair Name Role Phone Anuel Bowman DO Primary Care Provider [phone] Reason for Visit * Reason Onset Date Comments Care Management Follow-up 04/10/2024 Encounter Details Date Type Department Care Team (Late st Contact Info) Description 04/10/2024 Telephone [facility] - Centralized Scheduling [facility] [place] [address] Jordy Sierra MD Care Management [...] st Contact Info) Description 10/03/2025 10:30 AM RETAIL ASSISTANT STORE MANAGER Office Visit [facility] Urology [address] [place] [phone] Ryder Crystal MD [address] [place] [address] 02/11/2026 3:00 PM CDT Office Visit [facility] - Urology [address] [place] [phone] Clarke Munoz PA [address] [place] [address] documented as of this encounter Visit Diagnoses Not on filedocumented in this encounter Care Teams Coil Winder Repair Relationship Specialty Start Date End Date Anuel Bowman DO PCP - General Internal Medicine 01/27/22 documented as of this encounter
--- OUTSIDE RECORDS SUMMARY | 2025-07-07 09:14 | XMS_ITS | Clinical Summary ---
Author Organization [facility] Virtual Care Address [address] [place] [phone] Phone Care Team Providers Care Citrix Systems Administrator Name Role Phone Anuel Bowman DO Primary Care Provider [phone] Dionte Ovalles MD Unavailable [phone] Allergies Active Allergy Reactions Criticality Noted Date [...] (05/26/2021): Added automatically from request for surgery [id number] Immunizations Immunization Administration Dates Next Due [employer]edic SARS-CoV-2 Monovalent Vaccination (12+ Yrs) PURPLE 02/15/2021,01/25/2021 Surgical History Surgery Date Site/Laterality Comments TOTAL HIP ARTHROPLASTY 06/13/2021 - 07/13/2021 Left Medical History Medical History Date Comments Hypertension Peptic ulceration Sleep apnea cpap Heart murmur 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 1974 Urinary tract infection Type 2 diabetes mellitus borderl ine due to high Hgb A1C Atrial fibrillation [...] on file Legal Sex Male 12:11 AM PAYROLL PROCESSOR Gender Identity Male 06/11/2021 2:32 PM CDT Sexual Orientation Straight 06/11/2021 2: 32 PM CDT Obstetrics History Last Filed Vital Signs Vital Sign Reading Time Taken Comments Blood Pressure 120/82 10/30/2024 2:23 PM PAYROLL PROCESSOR Pulse 69 10/30/2024 2:23 PM PAYROLL PROCESSOR Temperature 36.8 C (98.2 F) 05/31/2021 1:59 PM CDT Respiratory Rate 18 05/31/2021 3:00 PM CDT Oxygen Saturation 95% 10/30/2024 2:23 PM PAYROLL PROCESSOR Inhaled Oxygen Concentration - - Weight 108 kg (238 lb) 10/30/2024 2:23 PM PAYROLL PROCESSOR Height 172.7 cm (5' 8) 10/30/2024 2:23 PM PAYROLL PROCESSOR Body Mass Index 36.19 10/30/2024 2:23 PM PAYROLL PROCESSOR Plan of Treatment Health Maintenance Due Date Last Done Comments Colon Cancer Screening-Colonoscopy 1955 Depression Screening 1955 Fall Risk Assessment 1955 Hepatitis C Screening 1955 Hepatitis B Screening 1973 Pneumococcal vaccine 65+ (1 of 1 - PCV) 2005 Abdominal Aortic Aneurysm (A AA) Screen 01/25/2020 Well Visit 65+ 01/25/2020 Covid-19 Vaccine (3 - 2023-2 5 season) 2024 02/15/2021, 01/25/2021 Influenza Vaccine (#1) 2025 , 08/22/2020, 08/18/2019, Additional history exists DTaP/Tdap/Td Vaccine (2 - Td or Tdap) 11/03/2025 11/03/2015 Zoster Vaccine Completed 08/22/2020, 11/13, 08/18/2019, Additional history exists Medical Devices Implanted Type Area Property Adjuster Device Identifier Shelf Expiration Date Model / Serial / Lot Depuy Orthopaedics Inc [id number] Peapack 54mm 36mm Hip Neutral Liner Acetabular Altrx Sterile Latex Free - [id number] Implanted:Qty: 1 on 05/31/2021 by Dionte Ovalles MD at [facility] Left: Hip [employer]uy Orth[employer]ed[employer] Inc 05/12/2026 [id number] / / [id number] Depuy Orthopaedics Inc [id number] Peapack 54mm Sector Hip Shell Acetabular Gription Sterile Latex Free - [id number] Implanted:Qty: 1 on 05/31/2021 by Dionte Ovalles MD at [facility] Left: Hip [employer]uy Orthopaed[employer] Inc 04/12/2031 [id number] / / [id number] Depuy Orthopaed[employer] Inc [id number] Actis L107 Mm Collar Hip 6 High Offset Stem Femoral - [id number] Implanted:Qty: 1 on 05/31/2021 by Dionte Ovalles MD at [facility] Left: Hip [employer]uy Orthopaed[employer] Inc 05/12/2031 [id number] / / [id number] Depuy Orthopaed[employer] Inc [id number] Articul/Declan 36mm Cementless Hip +8.5mm /14 Taper Head Femoral Latex Free - [id number] Implanted:Qty: 1 on 05/31/2021 by Dionte Ovalles MD at [facility] Left: Hip [employer]uy [employer]ed[employer] Inc 02/10/2026 [id number] / / [id number] Insurance MEDICARE [employer] MEDICARE FOR LIFE Advance Directives For more information, please contact: [phone] * Full Code (Latest Code Status on File) Date Activated Date Inactivated Comments 05/31/2021 11:11 AM 05/31/2021 8:40 PM Care Teams Citrix Systems Administrator Relationship Specialty Start Date End Date Anuel Bowman DO PCP - General 11/02/15 Dionte Ovalles MD Surgeon Orthopedic Surgery 05/31/21
--- OUTSIDE RECORDS SUMMARY | 2025-07-07 09:14 | XMS_ITS | Encounter Summary ---
Author Organization [facility] Address [address] [facility] [place] [address] Care Team Providers Care Truck Rental Clerk Name Role Phone Anuel Bowman DO Primary Care Provider [phone] Encounter Details Date Type Department Care Team (Late st Contact Info) Description 05/07/2025 Results Follow-Up [facility] - Urology [address] [place] [address] Ryder Crystal MD [address] [place] [address] Social History Tobacco Use Types Packs/Day Years [...] st Contact Info) Description 10/03/2025 10:30 AM MAGICIAN/ILLUSIONIST Office Visit [facility] - Urology [address] [place] [address] Ryder Crystal MD [address] [place] [address] [address] [place] [address] 02/11/2026 3:00 PM CDT Office Visit [facility] - Urology [address] [place] [phone] Clarke Munoz PA [address] [place] [phone] documented as of this encounter Visit Diagnoses Not on filedocumented in this encounter Care Teams Truck Rental Clerk Relationship Specialty Start Date End Date Anuel Bowman DO PCP - General Internal Medicine 01/27/22 documented as of this encounter
[2025-07-07 09:23] LABS: Hematocrit 45.2 % (42.0-52.0); Hemoglobin 14.6 g/dL (14.0-18.0); Immature Granulocyte Percent A 0.3 % (0-0.5); Lymphocytes Absolute Auto 1.17 K/mm3 (0.9-3.2); Mean Corpuscular HGB Conc 32.3 g/dl (32-36); Mean Corpuscular Hemoglobin 26.7 pg (26-34); Mean Corpuscular Volume 82.8 fl (80-100); Nucleated Red Blood Cells Absolute Auto 0.000 K/mm3 (0.0-0.012); Nucleated Red Blood Cells Perc 0.0 % (0.0-0.2); Platelet Count Result 176 k/mm3 (150-375); Red Blood Count 5.46 M/mm3 (4.6-6.20); White Blood Count 6.4 K/mm3 (4.5-10.0)
[2025-07-07 09:36] LABS: Hemoglobin A1C 9.6 % (<5.7)
[2025-07-07 09:46] LABS: Alanine Aminotransferase 72 U/L (6-50); Albumin Level 4.2 g/dL (3.5-5.1); Alkaline Phosphatase 76 U/L (38-126); Anion Gap 5 mmol/L (4-12); Aspartate Amino Transferase 45 U/L (17-59); Bilirubin,Total 0.8 mg/dL (0.2-1.3); Blood Urea Nitrogen 17 mg/dL (9-20); Calcium 9.4 mg/dL (8.4-10.2); Carbon Dioxide 28 mmol/L (22-30); Chloride 103 mmol/L (98-107); Cholesterol 157 mg/dL (0-200); Estimated Glomerular Filt Rate > 60; Glucose 217 mg/dL (65-110); HDL Direct 47 mg/dL; Potassium 4.3 mmol/L (3.4-5.0); Sodium 136 mmol/L (137-145); Total Protein 7.1 g/dL (6.3-8.2); Triglycerides 66 mg/dL (<150)
[2025-07-07 10:15] LABS: Free T3 3.22 pg/mL (2.45-5.93); Free T4 Free Thyroxine 0.97 ng/dL (0.78-2.19)
[2025-07-07 10:21] LABS: Thyroid Stimulating Hormone 1.210 uIU/mL (0.465-4.680)
== END 2025-07-07 08:51 | disposition home or self-care (01) ==
PROVIDERS: PCP Internal Medicine; Visit Provider Internal Medicine Endocrinology, Diabetes & Metabolism
DX: E66.9 Obesity, unspecified (principal); E11.65 Type 2 diabetes mellitus with hyperglycemia; E88.819 Insulin resistance, unspecified; R53.83 Other fatigue
CPT/HCPCS: 36415; 80053; 80061; 83036; 84439; 84443; 84481; 85025

== ENCOUNTER 2025-09-17 08:07 | Outpatient (CLI) | payer MEDICARE, OTHER, SELFPAY ==
--- OUTSIDE RECORDS SUMMARY | 2025-09-02 08:20 | XMS_ITS ---
Author Organization [facility] Address [address] [place] [address] Care Team Providers Care Health Care Analyst Name Role Phone Yvonne Keating Unavailable [phone] REASON FOR VISIT 1 month f/u Medications Medication SIG (Take, Route, Frequency, Duration) Notes Start Date End Date Status Metoprolol Succinate ER 50 MG Tablet Extended Release 24 Hour 1 tablet Orally Once a day Active Losartan Potassium 100 MG Tablet 1 tablet Orally Once a day twice daily Active Ozempic (0.25 or 0.5 MG/DOSE) 2 MG/3ML Solution Pen-injector 0.5 mg Subcutaneous once a week; Duration: 07/08/2025 Active glyBURIDE 5 MG Tablet 2 tablets Orally twice a day before meals; Duration: 08/05/2025 Active dexAMETHasone 1 MG Tablet 1 tablet Orally at 10 pm night before 8 am cortisol; Duration: 08/05/2025 Active Eliquis 5 MG Tablet 1 tab Orally twice a day Active Aspirin 81 81 MG Tablet Delayed Release 1 tablet Orally Once a day Active glyBURIDE 5 MG Tablet 1 tablet with breakfast or the first main meal of the day Orally Once a day two tablets with breakfast and two tablets with dinner Active rOPINIRole HCl 2 MG Tablet 1 tablet 1 to 3 hours before bedtime Orally Once a day Active Pregabalin 200 MG Capsule 1 capsule in the evening 1 to 3 hours before bedtime Orally Once a day Active Vitamin E 100 UNIT Capsule as directed Orally Active Calcium 600 MG Tablet 1 tablet with meal s Orally Twice a day Active Vitamin D (Cholecalciferol) 50 MCG (1999 UT) Capsule 1 capsule Orally Once a day Active Melatonin 10 MG Tablet as directed Orally Active Dexcom G7 Sensor - Miscellaneous as directed every 10 days; Duration: 90 days 06/10/2025 Active FreeStyle Madisyn 3 Plus Sensor - Miscellaneous change sensor every 15 days; Duration: 08/05/2025 Active Lantus SoloStar 100 UNIT/ML Solution Pen-injector inject up to 30 units Subcutaneous twice daily; Duration: 90 days 06/10/2025 Active Insulin Pen Needle 29G X 12MM Miscellaneous inject insulin up to twice daily; Duration: 90 days 06/10/2025 Active Encounters Encounter Location Date Provider Diagnosis [facility] Dr. Keating [id number] [place] [id number] 09/02/2025 Yvonne Keating Plan Of Treatment Next Appt Details Provider Name:Yvonne Keating, 12:00:00 PM, [address] [place] [address], [phone], History and Physical Notes * HPI (History of Present Illness) Category Sub-Category Detail Notes Category Not es History of Present Illness 70 yo male comes in for follow up in management and evaluation of poorly controlled type 2 DM (A1C of 9.6%), dyslipidemia and hypertension. At last visit in Jul we provided orders to complete more testing for cortisol as he has not done this after being asked over 3 times now. Not done and A1C not better. At last visit we added ozempic and continued toujeo 30 units in AM and 30 units HS with self titration instructions and glyburide scale. Progress Notes * Dionte CURRANDOB:1955 (70 yo M)Acc No.[id number]:09/02/2025 Progress Notes Patient: Dionte iNx Provider: Erna Keating MD :1955 A ge:70 Y S ex:Male Date:09/02/2025 Phone: Address:[address] [place] [address], [id number] Subjective: * Chief Complaints: * 1 month f/u * HPI: H istory of Present Illness: 70 yo male comes in for follow up in management and evaluation of poorly controlled type 2 DM (A1C of 9.6%), dyslipidemia and hypertension. At last visit in Jul we provided orders to complete more testing for cortisol as he has not done this after being asked over 3 times now. Not done and A1C not better. At last visit we added ozempic and continued toujeo 30 units in AM and 30 units HS with self titration instructions and glyburide scale. * Medications: T akingVitamin E 100 UNIT Capsule as directed Orally Calcium 600 MG Tablet 1 tablet with meals Orally Twice a day Vitamin D (Cholecalciferol) 50 MCG (1999 UT) Capsule 1 capsule Orally Once a day Melatonin 10 MG Tablet as directed Orally rOPINIRole HCl 2 MG Tablet 1 tablet 1 to 3 hours before bedtime Orally Once a day Pregabalin 200 MG Capsule 1 capsule in the evening 1 to 3 hours before bedtime Orally Once a day Eliquis 5 MG Tablet 1 tab Orally twice a day Aspirin 81 81 MG Tablet Delayed Release 1 tablet Orally Once a day glyBURIDE 5 MG Tablet 1 tablet with breakfast or the first main meal of the day Orally Once a day , Notes to Pharmacist: two tablets with breakfast and two tablets with dinnerMetoprolol Succinate ER 50 MG Tablet Extended Release 24 Hour 1 tablet Orally Once a day Losartan Potassium 100 MG Tablet 1 tablet Orally Once a day , Notes to Pharmacist: twice dailyOzempic (0.25 or 0.5 MG/DOSE) 2 MG/3ML Solution Pen-injector 0.5 mg Subcutaneous once a week glyBURIDE 5 MG Tablet 2 tablets Orally twice a day before meals dexAMETHasone 1 MG Tablet 1 tablet Orally at 10 pm night before 8 am cortisol FreeStyle Madisyn 3 Plus Sensor - Miscellaneous change sensor every 15 days Lantus SoloStar 100 UNIT/ML Solution Pen-injector inject up to 30 units Subcutaneous twice daily Insulin Pen Needle 29G X 12MM Miscellaneous inject insulin up to twice daily Dexcom G7 Sensor - Miscellaneous as directed every 10 days Taking Vitamin E 100 UNIT Capsule as directed Orally Taking Calcium 600 MG Tablet 1 tablet with meals Orally Twice a day Taking Vitamin D (Cholecalciferol) 50 MCG (1999 UT) Capsule 1 capsule Orally Once a day Taking Melatonin 10 MG Tablet as directed Orally Taking rOPINIRole HCl 2 MG Tablet 1 tablet 1 to 3 hours before bedtime Orally Once a day Taking Pregabalin 200 MG Capsule 1 capsule in the evening 1 to 3 hours before bedtime Orally Once a day Taking Eliquis 5 MG Tablet 1 tab Orally twice a day Taking Aspirin 81 81 MG Tablet Delayed Release 1 tablet Orally Once a day Taking glyBURIDE 5 MG Tablet 1 tablet with breakfast or the first main meal of the day Orally Once a day , Notes to Pharmacist: two tablets with breakfast and two tablets with dinnerTaking Metoprolol Succinate ER 50 MG Tablet Extended Release 24 Hour 1 tablet Orally Once a day Taking Losartan Potassium 100 MG Tablet 1 tablet Orally Once a day , Notes to Pharmacist: twice dailyTaking Ozempic (0.25 or 0.5 MG/DOSE) 2 MG/3ML Solution Pen-injector 0.5 mg Subcutaneous once a week Taking glyBURIDE 5 MG Tablet 2 tablets Orally twice a day before meals Taking dexAMETHasone 1 MG Tablet 1 tablet Orally at 10 pm night before 8 am cortisol Taking FreeStyle Madisyn 3 Plus Sensor - Miscellaneous change sensor every 15 days Taking Lantus SoloStar 100 UNIT/ML Solution Pen-injector inject up to 30 units Subcutaneous twice daily Taking Insulin Pen Needle 29G X 12MM Miscellaneous inject insulin up to twice daily Taking Dexcom G7 Sensor - Miscellaneous as directed every 10 days * Electronic signature of Jadiel Keating MD on 09/17/2025 at 08:17 AM IMMUNOLOGY SPECIALIST Sign off status: Pending * Provider: Erna Keating MD Date: Generated for Brenden vance/Birdie/Adeola on: 11/17/2024 08:17 AM IMMUNOLOGY SPECIALIST
--- OUTSIDE RECORDS SUMMARY | 2025-09-16 06:40 | XMS_ITS ---
Author Organization [facility] Address [address] [place] [address] Care Team Providers Care Social Economist Name Role Phone Yvonne Keating Unavailable [phone] Allergies Allergen (clinical drug ingredient) Drug/Non Drug Allergy documented on EMR Reaction Allergy Type Onset Date Status Penicillin anaphylaxis Drug Allergy Acti ve REASON FOR VISIT lab Medications Medication SIG (Take, Route, Frequency, Duration) Notes Start Date End Date Status Lantus SoloStar 100 UNIT/ML Solution Pen-injector inject up to 30 units Subcutaneous twice daily; Duration: 90 days 06/10/2025 Active Insulin Pen Needle 29G X 12MM Miscellaneous inject insulin up to twice daily; Duration: 90 days 06/10/2025 Active Dexcom G7 Sensor - Miscellaneous as directed every 10 days; Duration: 90 days 06/10/2025 Active FreeStyle Madisyn 3 Plus Sensor - Miscellaneous change sensor every 15 days; Duration: 90 days 08/05/2025 Active glyBURIDE 5 MG Tablet 2 tablets Orally twice a day before meals; Duration: 90 days 08/05/2025 Active Ozempic (0.25 or 0.5 MG/DOSE) 2 MG/3ML Solution Pen-injector 0.5 mg Subcutaneous once a week; Duration: 90 days 07/08/2025 Active Aspirin 81 81 MG Tablet Delayed Release 1 tablet Orally Once a day Active glyBURIDE 5 MG Tablet 1 tablet with breakfast or the first main meal of the day Orally Once a day two tablets with breakfast and two tablets with dinner Active Metoprolol Succinate ER 50 MG Tablet Extended Release 24 Hour 1 tablet Orally Once a day Active Losartan Potassium 100 MG Tablet 1 tablet Orally Once a day twice daily Active Melatonin 10 MG Tablet as directed Orally Active rOPINIRole HCl 2 MG Tablet 1 tablet 1 to 3 hours before bedtime Orally Once a day Active Pregabalin 200 MG Capsule 1 capsule in the evening 1 to 3 hours before bedtime Orally Once a day Active Eliquis 5 MG Tablet 1 tab Orally twice a day Active Vitamin D (Cholecalciferol) 50 MCG (1999 UT) Capsule 1 capsule Orally Once a day Active Ozempic (0.25 or 0.5 MG/DOSE) 2 MG/3ML Solution Pen-injector 0.5 mg Subcutaneous once a week; Duration: 90 days 09/16/2025 Active Vitamin E 100 UNIT Capsule as directed Orally Active dexAMETHasone 1 MG Tablet 1 tablet Orally at 10 pm night before 8 am cortisol; Duration: 1 days 09/16/2025 Active Calcium 600 MG Tablet 1 tablet with meal s Orally Twice a day Active Social History Section Notes: Non-Contributory Vital Signs Blood pressure systolic 149 mm Hg 09/16/20 25 Blood pressure diastolic 82 mm Hg 025 Heart Rate 71 /min 09/16/2025 Height 70 in 09/16/2025 Weight 242.4 lbs 09/16/2025 BMI 34.78 kg/m2 09/16/2025 Oximetry 94 % 09/16/2025 Height-cm 177.8 cm 09/16/2025 Weight-kg 109.95 kg 09/16/2025 Encounters Encounter Location Date Provider Diagnosis [facility] Dr. Keating [address] [place] [id number] 09/16/2025 Yvonne Keating Type 2 diabetes julianna litus with hyperglycemia, without long-term current use of insulin E11.65 ; Obesity (BMI 35.0-39.9 without comorbidity) E66.9 ; Dyslipidemia E78.5 ; Primary insomnia F51.01 and Dietary counseling and surveillance Z71.3 Assessments Encounter Date Diagnosis (ICD Code) Assessment Notes Treatment Notes Treatment Clinical Notes Section Notes 09/16/2025 Type 2 diabetes mellitus with hyperglycemia, without long-term current use of insulin (ICD-10 - E11.65) 09/16/2025 Obesity (BMI 35.0-39.9 without comorbidity) (ICD-10 - E66.9) 09/16/2025 Dyslipidemia (ICD-10 - E78.5) 09/16/2025 Primary insomnia (ICD-10 - F51.01) 09/16/2025 Dietary counseling and surveillance (ICD-10 - Z71.3) Spent 15 minutes preventative counseling patient on dietary recommendations and changes in setting of hyperglycemia- need to restrict refined sugars and processed foods and incorporate up to 150 minutes of moderate level activity weekly. 09/16/2025 Christi Rapp is a patient with poorly controlled Type 2 diabetes mellitus on multiple medications including insulin, with suspected cortisol excess contributing to insulin resistance. Type 2 diabetes mellitus, poorly controlledAssessmen t: Patient has poorly controlled Type 2 diabetes with A1c of 9.6 in July, currently on four diabetes medications including Rybelsus 30 mg daily, glyburide, and Toujeo insulin 30 units twice daily (morning and bedtime). Morning glucose levels around 139 mg/dL, above target range of 90-130 mg/dL. Patient demonstrates significant insulin resistance requiring insulin therapy despite Type 2 diabetes, which typically should not require insulin due to compensatory insulin production. Poor glycemic control may be secondary to elevated cortisol levels driving diabetes progression.Plan:- Discontinue Rybelsus, initiate Ozempic 0.25 mg subcutaneous weekly with dinner for 4 weeks, then increase to 0.5 mg weekly if no side effects (nausea, vomiting)- Store Ozempic below 78 degrees, take with food, maintain adequate hydration and fiber intake for gut transit- Continue Toujeo insulin 30 units twice daily (morning and bedtime)- Adjust Toujeo dose every 3 days as needed based on glucose readings- Continue Dexcom continuous glucose monitoring, use band-aids and Tagamet to improve sensor adhesion, maintain phone within 20-30 feet of sensor- Target morning glucose 90-130 mg/dL Suspected cortisol excessAssessment: Cortisol excess suspected as underlying cause of insulin resistance and poor diabetes control. Patient requires comprehensive cortisol evaluation to determine if hypercortisolism is driving diabetes progression and explaining need for insulin therapy in Type 2 diabetes.Plan:- Dexamethasone suppression test: take dexamethasone 1 pill between 10-11 PM, obtain ACTH and basic labs 8-9 AM following morning- 24-hour urine cortisol collection from 7 AM Monday to 7 AM Monday- Late-night salivary cortisol: collect saliva sample between 11 PM-midnight Monday night, avoid eating or brushing teeth 15 minutes prior to collection- Testing scheduled for late October or early November- Results expected in approximately 2 weeks after completion- All testing available through [employer] Sleep disorderAssessment: Patient reports sleeping only 3 hours daily with difficulty falling asleep. Sleep study scheduled for evaluation. Current CPAP usage inadequate at less than 45 minutes nightly.Plan:- Sleep study scheduled for tomorrow night- Increase CPAP usage to more than 45 minutes nightly Spent 25 minutes preparing to see the patient (ex review of tests/chart), obtaining and / or reviewing separately obtained history, performing a medically appropriate examination and/or evaluation, counseling and educating the patient/family/toddler caregiver, ordering medications, tests, or procedures, referring and communicating with other health early breastfeeding care specialist, documenting clinical information in the electronic or other health record, independently interpreting results and communicating results to the patient/family/toddler caregiver and care coordinating patient plan. Patient alert and oriented x 4 and aware of discussion noted above and in agreeance to plan in management of uncontrolled type 2 dM, dyslipidemia, insomnia, concern for hypercortisolism. Plan Of Treatment Medication Medication Name Sig Start Date Stop Date Notes Ozempic (0.25 or 0.5 MG/DOSE ) 2 MG/3ML Solution Pen-injector 0.5 mg Subcutaneous once a week; Duration: 90 days 09/16/2025 dexAMETHasone 1 MG Tablet 1 tablet Orall y at 10 pm night before 8 am cortisol; Duration: 1 days 09/16/2025 Treatment Notes Assessment Notes Dietary counseling and surveillance Spent 15 minutes preventative counseling patient on dietary recommendations and changes in setting of hyperglycemia- need to restrict refined sugars and processed foods and incorporate up to 150 minutes of moderate level activity weekly. Christi Rapp is a patient with poorly controlled Type 2 diabetes mellitus on multiple medications including insulin, with suspected cortisol excess contributing to insulin resistance. Type 2 diabetes mellitus, poorly controlledAssessment: Patient has poorly controlled Type 2 diabetes with A1c of 9.6 in July, currently on four diabetes medications including Rybelsus 30 mg daily, glyburide, and Toujeo insulin 30 units twice daily (morning and bedtime). Morning glucose levels around 139 mg/dL, above target range of 90-130 mg/dL. Patient demonstrates significant insulin resistance requiring insulin therapy despite Type 2 diabetes, which typically should not require insulin due to compensatory insulin production. Poor glycemic control may be secondary to elevated cortisol levels driving diabetes progression.Plan:- Discontinue Rybelsus, initiate Ozempic 0.25 mg subcutaneous weekly with dinner for 4 weeks, then increase to 0.5 mg weekly if no side effects (nausea, vomiting)- Store Ozempic below 78 degrees, take with food, maintain adequate hydration and fiber intake for gut transit- Continue Toujeo insulin 30 units twice daily (morning and bedtime)- Adjust Toujeo dose every 3 days as needed based on glucose readings- Continue Dexcom continuous glucose monitoring, use band-aids and Tagamet to improve sensor adhesion, maintain phone within 20-30 feet of sensor- Target morning glucose 90-130 mg/dL Suspected cortisol excessAssessment: Cortisol excess suspected as underlying cause of insulin resistance and poor diabetes control. Patient requires comprehensive cortisol evaluation to determine if hypercortisolism is driving diabetes progression and explaining need for insulin therapy in Type 2 diabetes.Plan:- Dexamethasone suppression test: take dexamethasone 1 pill between 10-11 PM, obtain ACTH and basic labs 8-9 AM following morning- 24-hour urine cortisol collection from 7 AM Monday to 7 AM Monday- Late-night salivary cortisol: collect saliva sample between 11 PM-midnight Monday night, avoid eating or brushing teeth 15 minutes prior to collection- Testing scheduled for late October or early November- Results expected in approximately 2 weeks after completion- All testing available through [employer] Sleep disorderAssessment: Patient reports sleeping only 3 hours daily with difficulty falling asleep. Sleep study scheduled for evaluation. Current CPAP usage inadequate at less than 45 minutes nightly.Plan:- Sleep study scheduled for tomorrow night- Increase CPAP usage to more than 45 minutes nightly Spent 25 minutes preparing to see the patient (ex review of tests/chart), obtaining and / or reviewing separately obtained history, performing a medically appropriate examination and/or evaluation, counseling and educating the patient/family/caregiver, ordering medications, tests, or procedures, referring and communicating with other health early breastfeeding care specialist, documenting clinical information in the electronic or other health record, independently interpreting results and communicating results to the patient/family/caregiver and care coordinating patient plan. Patient alert and oriented x 4 and aware of discussion noted above and in agreeance to plan in management of uncontrolled type 2 dM, dyslipidemia, insomnia, concern for hypercortisolism. Next Appt Details Follow Up: 2 Months, Reason: labwork Provider Name:Yvonne Keating, 12:00:00 PM, [address] [place] [address], [place], [phone], History and Physical Notes * HPI (History of Present Illness) Category Sub-Category Detail Notes Category Not es History of Present Illness Dionte, a patient with Type 2 diabetes mellitus, presented for follow-up of poorly controlled diabetes (A1c 9.6) and evaluation for possible cortisol excess contributing to insulin resistance. His morning blood sugars averaged 139 despite multiple medications including Rybelsus 30mg, glyburide, and Toujeo insulin 30 units twice daily. He reported significant sleep disturbances, sleeping only 3 hours daily with inadequate CPAP usage. Plan included switching from Rybelsus to Ozempic, continuing Toujeo, comprehensive cortisol testing (dexamethasone suppression test, 24-hour urine collection, salivary cortisol), and completing a scheduled sleep study. History of Present Illness Dionte is a patient with Type 2 diabetes mellitus who presents for follow-up of poorly controlled diabetes and evaluation for possible cortisol excess contributing to insulin resistance. His most recent A1c was 9.6 in July, indicating suboptimal glycemic control despite being on multiple antidiabetic medications including Rybelsus 30 mg in the morning, glyburide, and Toujeo insulin 30 units both in the morning and at bedtime. His morning blood sugars are running around 139, which is above target range. The patient is experiencing significant insulin resistance, which is unusual for a Type 2 diabetic who typically should not require insulin as the body should compensate by producing adequate insulin naturally. He is currently on four different medications for his diabetes management. There is concern that elevated cortisol levels may be driving his diabetes and explaining his need for insulin therapy when he probably should not require it. The patient has significant sleep disturbances, sleeping only 3 hours per day and having trouble falling asleep. He has a sleep study scheduled and uses a CPAP machine, though he currently uses it for less than 45 minutes, which is inadequate. He was supposed to switch from Rybelsus to Ozempic with once-weekly injections but did not receive the medication as planned. Medical History - Type 2 diabetes mellitus - Sleep disorder requiring CPAP therapy - Sleep disturbance with reported 3 hours of sleep per day Medications and Supplements - Rybelsus 30 mg by mouth in the morning. - Glyburide. - Toujeo 30 units in the morning and at bedtime. Social History - Sleep: Reports sleeping only 3 hours per day with difficulty falling asleep Review of Systems Neurological: Positive for trouble falling asleep, sleeps only 3 hours per day. Examination Category Sub-Category Detail Notes Category Not es Physical Exam SPC General: no acute distress obese male Eyes: pupil equal and reac tive to light, conjunctiva pink Ear, Nose, and Throat: No erythema poste rior Pharynx,, tympanic membrane normal Neck/Thyroid: neck supple, no thyr oid enlargement noticed Lymphatics: no palpable lymph no de in neck Cardiac: regular, rate and rh ythm Lung: clear to auscultatio n Abdomen: soft, non tender, no n distended, bowel sounds present Musculoskeletal normal range of tiffanie on Extremities: no edema Neurologic: alert oriented Progress Notes * Dionte CURRANDOB:1955 (70 yo M)Acc No.[id number]:09/16/2025 Progress Notes Patient: Dionte Nix Provider: Erna Keating MD :1955 A ge:70 Y S ex:Male Date:09/16/2025 Phone: Address:[address] [place], [place] [id number] Subjective: * Chief Complaints: * 1 . Lab. * HPI: H istory of Present Illness: Dionte, a patient with Type 2 diabetes mellitus, presented for follow-up of poorly controlled diabetes (A1c 9.6) and evaluation for possible cortisol excess contributing to insulin resistance. His morning blood sugars averaged 139 despite multiple medications including Rybelsus 30mg, glyburide, and Toujeo insulin 30 units twice daily. He reported significant sleep disturbances, sleeping only 3 hours daily with inadequate CPAP usage. Plan included switching from Rybelsus to Ozempic, continuing Toujeo, comprehensive cortisol testing (dexamethasone suppression test, 24-hour urine collection, salivary cortisol), and completing a scheduled sleep study. History of Present Illness Dionte is a patient with Type 2 diabetes mellitus who presents for follow-up of poorly controlled diabetes and evaluation for possible cortisol excess contributing to insulin resistance. His most recent A1c was 9.6 in July, indicating suboptimal glycemic control despite being on multiple antidiabetic medications including Rybelsus 30 mg in the morning, glyburide, and Toujeo insulin 30 units both in the morning and at bedtime. His morning blood sugars are running around 139, which is above target range. The patient is experiencing significant insulin resistance, which is unusual for a Type 2 diabetic who typically should not require insulin as the body should compensate by producing adequate insulin naturally. He is currently on four different medications for his diabetes management. There is concern that elevated cortisol levels may be driving his diabetes and explaining his need for insulin therapy when he probably should not require it. The patient has significant sleep disturbances, sleeping only 3 hours per day and having trouble falling asleep. He has a sleep study scheduled and uses a CPAP machine, though he currently uses it for less than 45 minutes, which is inadequate. He was supposed to switch from Rybelsus to Ozempic with once-weekly injections but did not receive the medication as planned. Medical History - Type 2 diabetes mellitus - Sleep disorder requiring CPAP therapy - Sleep disturbance with reported 3 hours of sleep per day Medications and Supplements - Rybelsus 30 mg by mouth in the morning. - Glyburide. - Toujeo 30 units in the morning and at bedtime. Social History - Sleep: Reports sleeping only 3 hours per day with difficulty falling asleep Review of Systems Neurological: Positive for trouble falling asleep, sleeps only 3 hours per day. * ROS: G eneral: Patient denies S TABLE, AFEBRILE, NAD. N o F ever.? E ye: No C hange in vision. E NT: No C hange in hearing. R espiratory: Patient denies s hortness of breath at rest. N o C ough. N o S hortness of breath. C ardiovascular: Patient denies c hest pain at rest. N o C hest pain. N o P alpitations. G astrointestinal: Patient denies a bdominal pain. N o A bdominal pain. N o C onstipation. N o D iarrhea. N o N ausea. N o V omiting. G enitourinary: No F requent urination. N o P ainful urination.? M usculoskeletal: No B ack pain. N o M uscle aches. N o N carlos pain. N o P ainful joints. N eurologic: No D izziness. N o H eadache. P sychiatric: No R ecent mood changes. A llergy / Immunology: Patient denies h cordell, itching, rash. O phthalmologic: Patient denies b lurry vision, discharge, red eye(s). P atient complains of d ouble vision. N o C hange in vision. E ndocrine: Patient denies c old intolerance, hair loss. n o C old intolerance. n o D izziness. n o E xcessive sweating. n o E xcessive thirst. n o F requent urination. n o H air loss. n o H eat intolerance. n o Hot flashes. n o I rregular menses. n o W eakness. n o W eight loss.? B reast: Patient denies b loody nipple discharge, breast pain, breast swelling. n o B loody nipple discharge. n o B reast lump or mass. n o B reast pain. n o B reast swelling. n o F ever. n o N ipple discharge. n o?Persistent breast pain. n o R ed skin. H ematology: Patient denies e asy bleeding, easy bruising, recent transfusion. G ynecology: Patient denies a bnormal bleeding, hot flashes, pelvic pain. A bnormal bleeding N o. B reast lump N o. B reast pain N o. D ischarge from the breast N o. H eavy bleeding during menses N o. H ot flashes N o. I rregular menses N o. M issed periods N o. P ainful intercourse N o. P ainful menses N o. P elvic pain N o. V aginal bleeding between periods N o. V aginal discharge / itching N o. I nterval between periods is more than 35 days N o. P eriods lasting more than 7 days N o. H aving a period in the past 6 months N o. V aginal odor N o. F H of breast cancer N o. C ontraception N o. S exually active?Yes. S elyse partner as last visit Y es. M en Only: Patient denies d ifficulty initiating stream, dribbling after urination, penile discharge. P eripheral Vascular: Patient denies b lanching of skin, cold extremities, decreased sensation in extremities. P odiatric: Patient denies a nkle pain, foot pain, sole pain. ? S kin: Patient complains of S KIN TEAR. n o A cne. n o?Changing moles. n o E czema. n o I tching. n o M ole(s). n o R krystyna. n o S kin cancer. G eneral PWC: no C hange in appetite. n o C hills. n o F atigue. n o F ever. n o H eadache. n o L ightheadedness. n o N ight sweats. n o S leep disturbance. n o W eight gain. n o W eight loss. n o?Weakness. G eneral health is good y es. E NT PWC: no B locked ear(s). n o C hange in hearing. n o?Decreased sense of smell. n o D ifficulty in swallowing. n o D ry mouth. n o E ar pain. n o H oarseness. n o M ass. n o N frankie congestion. n o Nosebleed. n o P ain. n o R inging in the ears. n o S cratchy throat.?no S inus pain. n o S inus problems. n o S neezing. n o S ore throat. n o S wollen glands. R espiratory PWC: no C hest pain. n o C hest tightness. n o C hronic cough. n o C ough. n o H emoptysis. n o P ain with inspiration. n o S hortness of breath. n o S hortness of breath at rest. n o S hortness of breath with exertion. n o S putum production. n o W heezing. C ardiovascular PWC: no C hest pain. n o C hest pain at rest. n o?Chest pain with exertion. n o C laudication. n o C ongenital heart problems. n o C yanosis. n o D ifficulty laying flat. n o D izziness. n o D yspnea on exertion. n o F luid accumulation in the legs. n o H eart murmur. n o H igh blood pressure. n o I rregular heartbeat. n o O rthopnea. n o O ther vascular anomalies. n o P alpitations. n o R heumatic fever. n o S hortness of breath. n o S welling in hands / feet. n o W eakness. n o W eight gain. G astrointestinal PWC: no A bdominal pain. n o B lood in stool. n o?Change in bowel habits. n o C olitis. n o C onstipation. n o D ecreased appetite. n o D iarrhea. n o D ifficulty swallowing. n o E xposure to hepatitis. n o H eartburn. n o H epatitis. n o J aundice. n o N ausea. n o R ectal bleeding. n o S tomach problems. n o V omiting. n o W eight loss. G enitourinary PWC: no A bdominal pain / swelling. n o B lood in the urine. n o D ifficulty urinating. n o F requent urination. n o S tress Incontinence. n o P ainful urination. n o P oor urine output. n o S ymptoms of urinary tract infection. M usculoskeletal PWC: no A rthritis / arthralgia. n o B ack pain. n o?Back problems. n o H istory of gout. n o J oint stiffness. n o L eg cramps. n o L imping gait. n o M uscle aches. n o M uscle spasms. n o N carlos pain. n o P ain in shoulder(s). n o P ainful joints. n o S ciatica.?no S wollen joints. n o T rauma to arm(s). n o T rauma to hip(s). n o?Trauma to knee(s). n o T rauma to ankle(s). n o W eakness. N eurologic PWC: no B alance difficulty. n o D ifficulty speaking.?no D izziness. n o F ainting. n o G ait abnormality. n o H eadache.?no I rritability. n o L oss of strength. n o L oss of use of extremity. no L ow back pain. n o M rick loss. n o P ain. n o P aralysis. n o S eizures. n o S troke. n o T ic. n o T ingling / numbness. n o?Transient loss of vision. n o T remor. P sychiatric PWC: no A nxiety. n o A uditory / visual hallucinations.?no D elusions. n o R ecent mood changes. n o D ifficulty sleeping. n o?Eating disorder. n o L oss of appetite. n o M ental or physical abuse. n o Mood disorder. n o N ervous breakdown. n o S tressors. n o S ubstance abuse. n o S uicidal thoughts. G ynecology PWC: no A bnormal bleeding. n o B reast lump. n o?Breast pain. n o D ischarge from the breast. n o H eavy bleeding during menses.?no H ot flashes. n o I rregular menses. n o M issed periods. n o P ainful intercourse. n o P ainful menses. n o P elvic pain. n o V aginal bleeding between periods. n o V aginal discharge / itching. n o I nterval between periods is more than 35 days. n o P eriods lasting more than 7 days. n o H aving a period in the past 6 months. n o V aginal odor. n o F H of breast cancer. n o C ontraception. n o S exually active. n o S elyse partner as last visit. B reast PWC: no B loody nipple discharge. n o B reast lump or mass. n o B reast pain. n o B reast swelling. n o F ever. n o N ipple discharge. n o P ersistent breast pain. n o R ed skin. A llergy PWC: no B listering skin. n o C ongestion. n o C ough. n o H cordell. n o I tching. n o R krystyna. n o R ecurrent serious infections. n o S easonal allergies. n o S neezing. n o U nusual reaction to medication(s), food, animals or insects. n o W atery eyes. n o W heezing. E ndocrine PWC: no C old intolerance. n o D izziness. n o E xcessive sweating. n o E xcessive thirst. n o F requent urination. n o H air loss. n o H eat intolerance. n o H ot flashes. n o I rregular menses. n o W eakness. n o W eight loss. G astroenterology PWC: no N ausea. n o H eartburn. n o S tool incontinence. n o R eflux. n o A bdominal pain. n o I ndigestion. n o H emorrhoids. n o H iatal hernia. n o U lcers. n o A nal fissures. n o?Hepatitis. n o G allstones. n o R ed blood after bowel movements. n o V omiting. n o B loating/belching. n o D ifficulty swallowing. n o D iarrhea.?no C onstipation. n o C hange in bowel habits. n o B lood in stool. ? U rology PWC: no D ifficulty urinating. n o B lood in urine. n o U rinary urgency. n o F requent urination. n o U rinary incontinence. n o V oiding dysfunction. n o V ulvodynia. n o D ysparaunia. n o R ecurrent UTI. n o W eak flow. n o D ribbling after urination. n o F requent bladder infections. n o K idney stone. n o K idney disease. n o U rine hesitancy.?no P ainful urination. C onstitutional PWC: no N o weight gain. n o L oss of appetite. n o?Fever. n o W eakness. n o W eight loss. n o N ight sweats. n o N ausea. n o V isual changes. n o C hange in sleep patterns. H +p reviewed y es. n o C hange in activity capacity. F emale Reproductive PWC: no H eavy periods. n o D ysparaunia. n o S exually active. n o P remenstrual syndrome. n o D ysmenorrhea. n o I nfertility. n o F requent yeast infections. n o V aginal itching. n o I ntermenstrual bleeding. n o P ost coital bleeding. n o P ostmenopausal bleeding. n o P elvic pain. n o M enstral cycle. n o V aginal discharge. n o V aginal dryness. n o O varian cysts. No fibroids. n o D ischarge from breast. n o A bn. Bleeding between cycles. n o P ostmenopausal symptoms. n o L oss of sexual interest.?no P ainful sexual intercourse. n o E ndometriosis. n o V aginal warts. n o A bnormal pap. n o I rregular periods. n o A bnormal vaginal discharge. n o H ot flashes. H ematology/lymph PWC: no S wollen glands. n o F atigue. n o L oss of appetite. n o E asy bruising. n o E asy bleeding. n o A nemia. ? G eneral ..: No F ever. E ye ..: No C hange in Vision. E NT ..: No C hange in hearing. R espiratory ..: No C ough. N o S hortness of breath. ? C ardiovascular..: No C hest pain. N o P alpitations. G astrointestinal ..: No A bdominal pain. N o C onstipation. N o D iarrhea. N o N ausea. N o V omiting. G enitourinary ..: No F requent urination. N o P ainful urination.? M usculoskeletal ..: No B ack pain. N o M uscle aches. N o N carlos pain. N o P ainful joints. N eurological ..: No D izziness. N o H eadache. P sychiatric ..: No R ecent mood changes. M CS General: GENERAL P atient denies fever, fatigue, weakness, weight gain or weight loss. H EENT P atient denies changes in vision and hearing. R ESPIRATORY?Patient denies SOB and cough. C ARDIOVASCULAR P atient denies palpitations and chest pain. G I P atient denies abdominal pain, nausea, vomiting and diarrhea. G ENITO-URINARY?Patient denies dysuria and urinary frequency. M USCULOSKELETAL P atient denies myalgia and joint pain. N EUROLOGY P atient denies headache and syncope. E NDOCRINOLOGY P atient denies polyuria, polydipsia, weight gain or weight loss. P SYCHIATRY P atient denies recent changes in mood. Denies anxiety and depression. D ERMATOLOGY P atient denies rash or pruritus. E XTREMITIES P atient denies swelling, pain or numbness. * Medical History: * Surgical History: * Hospitalization/Major Diagno stic Procedure: * Family History: N on-Contributory.. * Social History: Social History Verified. N on-Contributory. * Medications: T aking Vitamin E 100 UNIT Capsule as directed Orally , Taking Calcium 600 MG Tablet 1 tablet with meals Orally Twice a day , Taking Vitamin D (Cholecalciferol) 50 MCG (1999 UT) Capsule 1 capsule Orally Once a day , Taking Melatonin 10 MG Tablet as directed Orally , Taking rOPINIRole HCl 2 MG Tablet 1 tablet 1 to 3 hours before bedtime Orally Once a day , Taking Pregabalin 200 MG Capsule 1 capsule in the evening 1 to 3 hours before bedtime Orally Once a day , Taking Eliquis 5 MG Tablet 1 tab Orally twice a day , Taking Aspirin 81 81 MG Tablet Delayed Release 1 tablet Orally Once a day , Taking glyBURIDE 5 MG Tablet 1 tablet with breakfast or the first main meal of the day Orally Once a day , Notes to Pharmacist: two tablets with breakfast and two tablets with dinner, Taking Metoprolol Succinate ER 50 MG Tablet Extended Release 24 Hour 1 tablet Orally Once a day , Taking Losartan Potassium 100 MG Tablet 1 tablet Orally Once a day , Notes to Pharmacist: twice daily, Taking Ozempic (0.25 or 0.5 MG/DOSE) 2 MG/3ML Solution Pen-injector 0.5 mg Subcutaneous once a week , Taking glyBURIDE 5 MG Tablet 2 tablets Orally twice a day before meals , Taking FreeStyle Madisyn 3 Plus Sensor - Miscellaneous change sensor every 15 days , Taking Lantus SoloStar 100 UNIT/ML Solution Pen-injector inject up to 30 units Subcutaneous twice daily , Taking Insulin Pen Needle 29G X 12MM Miscellaneous inject insulin up to twice daily , Taking Dexcom G7 Sensor - Miscellaneous as directed every 10 days , Medication List reviewed and reconciled with the patient * Allergies: P enicillin: anaphylaxis - Allergy - Criticality High. Allergies Verified. Objective: * Vitals: H t: 70 in, Wt:242.4lbs, BMI:34.78Index, BP:149/82mm Hg, HR:71/min, Oxygen sat %:94%, Wt-k.95 kg, Ht-cm: 177.8 cm, Body Surface Area: 2.33. * Examination: P hysical Exam SPC: General: n o acute distress obese male. Eyes: p upil equal and reactive to light, conjunctiva pink.? Ear, Nose, and Throat: N o erythema posterior Pharynx,, tympanic membrane normal. Neck/Thyroid: n carlos supple, no thyroid enlargement noticed.? Lymphatics: n o palpable lymph node in neck. Cardiac: r egular, rate and rhythm. Lung: c lear to auscultation. Abdomen: s oft, non tender, non distended, bowel sounds present. Musculoskeletal n ormal range of motion. Extremities: n o edema. Neurologic: a lert oriented. Assessment: * Assessment: 1. T ype 2 diabetes mellitus with hyperglycemia, without long-term current use of insulin - E11.65 (Primary) 2 . O besity (BMI 35.0-39.9 without comorbidity) - E66.9 ? 3 . D yslipidemia - E78.5 4 . P rimary insomnia - F51.01 5. D ietary counseling and surveillance - Z71.3 Plan: * Treatment: 2. O besity (BMI 35.0-39.9 without comorbidity) Start dexAMETHasone Tablet, 1 MG, 1 tablet, Orally, at 10 pm night before 8 am cortisol, 1 days, 1, Refills 1. 3. D ietary counseling and surveillance Notes: Spent 15 minutes preventative counseling patient on dietary recommendations and changes in setting of hyperglycemia- need to restrict refined sugars and processed foods and incorporate up to 150 minutes of moderate level activity weekly. 4. O thers Notes: Dionte is a patient with poorly controlled Type 2 diabetes mellitus on multiple medications including insulin, with suspected cortisol excess contributing to insulin resistance. Type 2 diabetes mellitus, poorly controlledAssessment: Patient has poorly controlled Type 2 diabetes with A1c of 9.6 in July, currently on four diabetes medications including Rybelsus 30 mg daily, glyburide, and Toujeo insulin 30 units twice daily (morning and bedtime). Morning glucose levels around 139 mg/dL, above target range of 90-130 mg/dL. Patient demonstrates significant insulin resistance requiring insulin therapy despite Type 2 diabetes, which typically should not require insulin due to compensatory insulin production. Poor glycemic control may be secondary to elevated cortisol levels driving diabetes progression.Plan:- Discontinue Rybelsus, initiate Ozempic 0.25 mg subcutaneous weekly with dinner for 4 weeks, then increase to 0.5 mg weekly if no side effects (nausea, vomiting)- Store Ozempic below 78 degrees, take with food, maintain adequate hydration and fiber intake for gut transit- Continue Toujeo insulin 30 units twice daily (morning and bedtime)- Adjust Toujeo dose every 3 days as needed based on glucose readings- Continue Dexcom continuous glucose monitoring, use band-aids and [place] to improve sensor adhesion, maintain phone within 20-30 feet of sensor- Target morning glucose 90-130 mg/dL Suspected cortisol excessAssessment: Cortisol excess suspected as underlying cause of insulin resistance and poor diabetes control. Patient requires comprehensive cortisol evaluation to determine if hypercortisolism is driving diabetes progression and explaining need for insulin therapy in Type 2 diabetes.Plan:- Dexamethasone suppression test: take dexamethasone 1 pill between 10-11 PM, obtain ACTH and basic labs 8-9 AM following morning- 24-hour urine cortisol collection from 7 AM Monday to 7 AM Monday- Late-night salivary cortisol: collect saliva sample between 11 PM-midnight Monday night, avoid eating or brushing teeth 15 minutes prior to collection- Testing scheduled for late October or early November- Results expected in approximately 2 weeks after completion- All testing available through [employer] Sleep disorderAssessment: Patient reports sleeping only 3 hours daily with difficulty falling asleep. Sleep study scheduled for evaluation. Current CPAP usage inadequate at less than 45 minutes nightly.Plan:- Sleep study scheduled for tomorrow night- Increase CPAP usage to more than 45 minutes nightly Spent 25 minutes preparing to see the patient (ex review of tests/chart), obtaining and / or reviewing separately obtained history, performing a medically appropriate examination and/or evaluation, counseling and educating the patient/family/caregiver, ordering medications, tests, or procedures, referring and communicating with other health early breastfeeding care specialist, documenting clinical information in the electronic or other health record, independently interpreting results and communicating results to the patient/family/caregiver and care coordinating patient plan. Patient alert and oriented x 4 and aware of discussion noted above and in agreeance to plan in management of uncontrolled type 2 dM, dyslipidemia, insomnia, concern for hypercortisolism. * Procedure Codes: 9 9401 P/M LEAD RAMP AGENT, INDIV 15 MIN * Follow Up: 2 Months (Reason: labwork) Billing Information: * Visit Code: [id number] Office Visit, Est Pt., Level 4. * Procedure Codes: 21518 P/M LEAD RAMP AGENT, INDIV 15 MIN. * SERVICE MANAGER Sign off status: Completed true * Provider: Erna Keating MD Date: 11/16/2024 Generated for Brenden vance/Birdie/Alexitting on: 11/17/2024 08:16 AM ROOM SERVICE MANAGER
--- OUTSIDE RECORDS SUMMARY | 2025-09-17 08:17 | XMS_ITS | Clinical Summary ---
Author Organization [facility] Address [address] [place] [address] Care Team Providers Care University Tutor Name Role Phone Anuel Bowman DO Primary Care Provider [phone] Allergies Active Allergy Reactions Criticality Noted Date Comments Cephalexin Itching Low 07/05/2023 Fish Allergy Diarrhea 01/27/2022 Fish Protein-Containing Drug Products Vomiting 05/27/2020 Penicillins Swelling 05/27/2020 Medications [...] 2 (two) times daily with meals. Active rOPINIRole XL (REQUIP XL) 2 MG 24 hr tablet Take 2 tablets (4 mg total) by mouth nightly at bedtime. Active Vitamin D3 125 mcg Tab Take 1 tablet (125 mcg total) by mouth daily. Active insulin glargine (LANTUS) 100 UNIT/ML injection (VIAL) Inject 26 Units into the skin nightly at bedtime. Active semaglutide (RYBELSUS) 14 MG tabletIndications :Diabetes Mellitus Take 1 tablet (14 mg total) by mouth every morning before breakfast. Indications: Diabetes Active insulin glargine (LANTUS) 100 UNIT/ML injection (VIAL) Inject 26 Units into the skin every morning. 7.8 mL 07/21/20 25 Active Active Problems Problem Noted Date Diagnosed Date Hyperglycemia 07/20/2025 Catheter-associated urinary tract infection 09/13 UTI (urinary tract infection) 09/26/2024 Right leg weakness 05/13/2023 Encounters Date Type Department Care Team Description 07/20/2025 5:05 PM CDT - 07/21/2025 11:26 AM CDT Hospital Encounter [facility] Med/Surg [address] [place] [address] Josiah Estrella DO Mahtani, Andrew, MD Suresh, Aditya Krishna, MD Hyperglycemia Discharge Disposition: Home or Self Care (Routine Discharge) 07/20/2025 Travel from Last 3 Months Family History [...] drink = 0.6 oz pur e alcohol) [facility] Utilities Answer Date Recorded In the past 12 months has th e electric, gas, oil, or water company threatened to shut off services in your home? No 07/20/2025 Humiliation, Afraid, Rape, and Kick questionnair e Answer Date Recorded Within the last year, have y ou been afraid of your partner or ex-partner? No 07/20/2025 Within the last year, have y ou been humiliated or emotionally abused in other ways by your partner or ex-partner? No Within the last year, have y ou been kicked, hit, slapped, or otherwise physically hurt by your partner or ex-partner? No 07/20/2025 Within the last year, have y ou been raped or forced to have any kind of sexual activity by your partner or ex-partner? No 07/20/2025 AUDIT-C Answer Date Recorded Frequency of Alcohol Consumption Never 05/27/2020 Average Number of Drinks Not on file 020 Frequency of Binge Drinking Not on file 05/13 Overall Financial Resource Strain (CARDIA) Answe r Date Recorded How hard is it for you to pa y for the very basics like food, housing, medical care, and heating? Not hard at all 07/20/2025 Hunger Vital Sign Answer Date Recorded Within the past 12 months, y ou worried that your food would run out before you got the money to buy more. Never true 07/20/20 25 Within the past 12 months, t he food you bought just didn't last and you didn't have money to get more. Never true 07/20/2025 PRAPARE - Transportation Answer Date Re corded In the past 12 months, has l ack of transportation kept you from medical appointments or from getting medications? No 05/2025 In the past 12 months, has l ack of transportation kept you from meetings, work, or from getting things needed for daily living? No 07/20/2025 Housing Stability Vital Sign Answer Isma e [...] place to sleep or slept in a fdc (including now)? No 05/13/2023 Housing Stability Vital Sign Answer Isma e Recorded In the last 12 months, was t here a time when you were not able to pay the mortgage or rent on time? No 07/20/2025 In the past 12 months, how m any times have you moved where you were living? 1 07/20/2025 At any time in the past 12 m [facility], were you homeless or living in a fdc (including now)? 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 Not on file Not on file Not on file Last Filed Vital Signs Vital Sign Reading Time Taken Comments Blood Pressure 130/88 07/21/2025 7:15 AM CDT Pulse 67 07/21/2025 7:15 AM CDT Temperature 36.2 C (97.1 F) 07/21/2025 7:15 AM CDT Respiratory Rate 20 07/21/2025 7:15 AM CDT Oxygen Saturation 96% 07/21/2025 7:15 AM CDT Inhaled Oxygen Concentration - - Weight 110 kg (242 lb 8.1 oz) 07/21/2025 4:29 AM CDT Height 172.7 cm (5' 8) 07/20/2025 7:30 PM CDT Body Mass Index 36.87 07/20/2025 7:30 PM CDT Plan of Treatment Health Maintenance Due Date Last Done Comments Colorectal Cancer Screening Colonoscopy (10 Years) 1955 Pneumococcal Vaccine: 50+ Years (1 of 1 - PCV) 2005 Annual Medicare Wellness Visit 01/25/2020 COVID-19 Vaccine ( season) 2025 02/15/2021, 01/25/2021 Influenza Adult (#1) 2025 08/20/2024, 08/16/2022, 08/22/2020, Additional history exists RSV Immunization or 60+ Years (1 - 1-dose 75+ series) 2030 DTaP, Tdap and Td Vaccines (2 - Td or Tdap) 12/20/2032 12/20/2022 Zoster Vaccines Completed 08/22/2020, 11/13, 11/25/2019, Additional history exists Hepatitis C Completed 01/27/2022 Hepatitis A Vaccines Aged Out No long er eligible based on patient's age to complete this topic Meningococcal B Vaccine Aged Out No l onger eligible based on patient's age to complete this topic Meningococcal Vaccine Aged Out No wayne kobe eligible based on patient's age to complete this topic RSV Immunizations Under 20 Months Aged Out No longer eligible based on patient's age to complete this topic Goals Goal Patient Goal Type Associated Problems Recent Progress Patient-Stated? Author Patient will return to prior living situation and remain independent in ADLs upon discharge from hospital Lifestyle No Azucena Ramirez RN Procedures Procedure Name Priority Date/Time Associated Diagnosis Comments POCT GLUCOSE - DOCKED DEVICE Routine 07/21/2025 7:53 AM CDT THYROXINE, FREE (FT4) Routine 07/21/2025 6:15 AM CDT THYROID STIM HORMONE TSH Routine 07/21/2025 6:15 AM CDT HEMOGLOBIN, GLYCOSYLATED Routine 07/21/2025 6:15 AM CDT BASIC METABOLIC PANEL Routine 07/21/2025 6:15 AM CDT CBC W/DIFF AUTOMATED Routine 07/21/2025 6:15 AM CDT POCT GLUCOSE - DOCKED DEVICE Routine 07/20/2025 8:15 PM CDT POCT GLUCOSE - DOCKED DEVICE Routine 07/20/2025 6:[address] HEAD WO CON STAT 07/20/2025 6:05 PM CDT XR CHEST PA+LAT STAT 07/20/2025 6:05 PM CDT URINALYSIS, AUTO, COMPLETE STAT 07/20/2025 5:53 PM CDT ECG 12-LEAD Routine 07/20/2025 5:25 PM CDT BETA-HYDROXYBUTYRATE STAT 07/20/2025 5:10 PM CDT BLOOD GAS, VENOUS STAT 07/20/2025 5:1 0 PM CDT ETHANOL STAT 07/20/2025 5:10 PM CDT MAGNESIUM STAT 07/20/2025 5:10 PM CDT PRO-BRAIN NATRIURETIC PEPTIDE STAT 07/20/2025 5:10 PM CDT LIPASE STAT 07/20/2025 5:10 PM CDT TROPONIN, QUANT STAT 07/20/2025 5:10 PM CDT COMPREHENSIVE METABOLIC PANEL STAT 07/20/2025 5:10 PM CDT PARTIAL THROMBOPLASTIN TIME,PTT STAT 07/20/2025 5:10 PM CDT PROTHROMBIN TIME, VENOUS STAT 07/20/2025 5:10 PM CDT CBC W/DIFF AUTOMATED STAT 07/20/2025 5:10 PM CDT POCT GLUCOSE - DOCKED DEVICE Routine 07/20/2025 5:07 PM CDT from Last 3 Months Results * (ABNORMAL) POCT glucose (07/21/2025 7:53 AM CDT) Only the most recent of4 resultswithin the time period is included. [facility] Signature GLUCOSE POC 152(H) 70 - 110 mg/dL 07/21/2025 8:00 AM CDT [facility] 07/21/2025 7:53 AM CDT Killian Montana MD POCT ORDERABLES - DEVIC E Final Result Performing Organization Address [facility] de Phone Number [facility] [address] [place] [address], * (ABNORMAL) HEMOGLOBIN, GLYCATED (07/21/2025 6:15 AM CDT) HGB A1C 11.0(H) <5.7 % 07/21/2025 6:55 AM CDT [facility] Comment: INCREASED RISK OF DIABETES <5.7% NON-DIABETES 5.7-6.4% INCREASED RISK FOR FUTURE DIABETES > OR = 6.5 CONSISTENT WITH DIABETES STANDARDS OF MEDICAL CARE IN DIABETES-2010 DIABETES CARE, 33(SUPP 1): S1-S61,2010 ESTIMATED AVG GLUCOSE 269 mg/dL 07/21/2025 6:55 AM CDT [facility] 07/21/2025 6:15 AM CDT us Byron Santiago MD LABORATORY Final Result Performing Organization Address [facility] de Phone Number [facility] [address] [place] [address], [place] [phone] * (ABNORMAL) BASIC METABOLIC PANEL (07/21/2025 6:15 AM CDT) GLUCOSE 116(H) 70 - 99 MG/DL 07/21/2025 6:53 AM CDT [facility] BUN 12 7 - 18 MG/DL 07/21/2025 6:53 AM CDT [facility] CREATININE S/P/B 0.86 0.7 - 1.3 MG/DL 07/21/2025 6:53 AM CDT [facility] SODIUM S/P/B 142 136 - 145 MMOL/L 07/21/2025 6:53 AM CDT [facility] POTASSIUM S/P/B 3.2(L) 3.5 - 5.1 MMOL/L 07/21/2025 6:53 AM CDT [facility] CHLORIDE S/P/B 107 100 - 108 MMOL/L 07/21/2025 6:53 AM CDT [facility] CO2 29.1 21 - 32 MMOL/L 07/21/2025 6:53 AM CDT [facility] CALCIUM S/P/B 8.4(L) 8.5 - 10.1 MG/DL 07/21/2025 6:53 AM CDT [facility] ANION GAP 5.9 5 - 15 MMOL/L 07/21/2025 6:53 AM T [facility] BUN CREATININE RATIO 14.0 6 - 26 07/21/2025 6:53 AM CDT [facility] GFR ESTIMATE >90 >90 ML/MIN/1.7 3 M2 07/21/2025 6:53 AM CDT [facility] Comment: NOTE: eGFR is not calculated for patients <18 years of age. This is an estimated GFR calculation using the new CKD EPI creatinine equation without race and so does not require a correction factor for race. This estimated GFR should not be used for calculating drug doses. 07/21/2025 6:15 AM CDT us Byron Santiago MD LABORATORY Final Result [facility] [address] [place] [address], [place] [phone] * (ABNORMAL) CBC W/DIFF AUTOMATED (07/21/2025 6:15 AM CDT) Only the most recent of2 resultswithin the time period is included. WBC 5.46 4.4 - 11.0 x10'3/uL 07/21/2025 6:27 AM [facility] RBC 4.91 4.50 - 5.90 x10'6/uL 07/21/2025 6:27 AM [facility] HGB 13.4(L) 14.0 - 17.5 G/DL 07/21/2025 6:27 AM [facility] HCT 40.4(L) 41.5 - 50.4 % 07/21/2025 6:27 AM [facility] MCV 82.3 80.0 - 96.0 FL 07/21/2025 6:27 AM [facility] MCH 27.3 26.5 - 31.4 PG 07/21/2025 6:27 AM [facility] MCHC 33.2 31.9 - 34.8 G/DL 07/21/2025 6:27 AM [facility] RDW 13.9 12.3 - 14.3 % 07/21/2025 6:27 AM [facility] PLT 147(L) 151 - 353 x10'3/uL 07/21/2025 6:27 AM [facility] MPV 10.5 9.7 - 11.9 FL 07/21/2025 6:27 AM [facility] RBC MORPHOLOGY NORMAL 07/21/2025 6:27 AM [facility] PLT MORPH. NORMAL 07/21/2025 6:27 AM [facility] WBC MORPHOLOGY NORMAL 07/21/2025 6:27 AM [facility] LYMPHOCYTES % 26.9 15.8 - 45.0 % 07/21/2025 6:27 AM CDT [facility] NEUTROPHILS % 63.4 42.1 - 71.9 % 07/21/2025 6:27 AM CDT [facility] MONOCYTES % 7.3 5.7 - 12.5 % 07/21/2025 6:27 AM CDT [facility] EOSINOPHILS 1.5 0.0 - 5.6 % 07/21/2025 6:27 AM CDT [facility] BASOPHILS 0.7 0.0 - 1.3 % 07/21/2025 6:27 AM CDT [facility] ABS. NEUTROPHILS 3.46 1.40 - 6.00 x10'3/uL 07/21/2025 6:27 AM CDT [facility] IMMATURE GRANS % 0.2 0.0 - 0.5 % 07/21/2025 6:27 AM CDT [facility] ABS. LYMPHOCYTES 1.47 0.80 - 4.70 x10'3/uL 07/21/2025 6:27 AM CDT [facility] 07/21/2025 6:15 AM CDT Byron Santiago MD LABORATORY Final Result Performing Organization Address City/State/[facility] Co de Phone Number [facility] [address] [place] [address], * THYROXINE, FREE (FT4) (07/21/2025 6:15 AM CDT) FREE T4 1.07 0.76 - 1.46 NG/DL 07/21/2025 9:56 AM CDT [facility] 07/21/2025 6:15 AM CDT Killian Montana MD LABORATORY Final R esult Performing Organization Address City/[facility]/ZIP Co de Phone Number [facility] [address] [place] [address], [place] [phone] * (ABNORMAL) THYROID STIM HORMONE, TSH (07/21/2025 6:15 AM CDT) TSH 4.116(H) 0.358 - 3.74 uIU/ML 07/21/2025 6:53 AM CDT [facility] Comment: HIGH DOSES OF BIOTIN MAY INTERFERE WITH THIS TEST RESULT. CORRELATION TO CLINICAL HISTORY AND PRESENTATION RECOMMENDED. 07/21/2025 6:15 AM CDT Byron Santiago MD LABORATORY Final Result Performing Organization Address [facility] Co de Phone Number [facility] [address] [place] [address], [place] [phone] * CT HEAD WO CON (07/20/2025 6:05 PM CDT) Anatomical Region Laterality Modality Head Computed Tomogra phy 07/20/2025 6:15 PM CDT Impressions 07/20/2025 6:22 PM CDT IMPRESSION: 1. No definite CT evidence for acute intracranial abnormality. 2. Other chronic or nonurgent findings as described above. Please note that CT has limited sensitivity for the detection of acute ischemia Referred By: Interpreted By: Yuniel Neumann MD, 07/20/2025 6:15 PM Narrative 07/20/2025 6:22 PM CDT [facility] [address] [facility]. [place] [id number] EXAMINATION: CT of the head CLINICAL HISTORY: Dizziness, blurry vision, weakness COMPARISON: 03/09/2025 TECHNIQUE: CT examination of the head without contrast was performed with axial images obtained. A radiation dose lowering technique was used for this procedure, which may include, but is not limited to, dose reduction technique, automated exposure control, the use of iterative reconstruction, ALARA (As Low As Reasonably Achievable) techniques, and Image Gently techniques. FINDINGS: There is no evidence of acute intracranial hemorrhage, abnormal extra-axial collections, intracranial mass effect, or midline shift. There is mild to moderate volume loss with enlargement of the ventricles and extra-axial/subarachnoid spaces. 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 There are scattered bilateral foci of periventricular and deep white matter hypoattenuation, probably related to chronic small vessel ischemic disease. Atherosclerotic calcifications of the intracranial arterial vasculature are evident. There is no definite CT evidence to suggest acute territorial infarction. The calvarium is unremarkable, without evidence of acute fracture. The visualized mastoid air cells, paranasal sinuses, and orbits are grossly unremarkable. Procedure Note Yuniel Neumann MD - 07/20/2025 [place] [id number] [facility] [place] [address] EXAMINATION: CT of the head CLINICAL HISTORY: Dizziness, blurry vision, weakness COMPARISON: 03/09/2025 TECHNIQUE: CT examination of the head without contrast was performed withaxial images obtained. A radiation dose lowering technique was used forthis procedure, which may include, but is not limited to, dose reductiontechnique, automated exposure control, the use of iterativereconstruction, ALARA (As Low As Reasonably Achievable) techniques, andImage Gently techniques. FINDINGS: There is no evidence of acute intracranial hemorrhage, abnormalextra-axial collections, intracranial mass effect, or midline shift. Thereis mild to moderate volume loss with enlargement of the ventricles andextra-axial/subarachnoid spaces. Stable right frontal lobe and anteriortemporal lobe infarct. There are scattered bilateral foci ofperiventricular and deep white matter hypoattenuation, probably related tochronic small vessel ischemic disease. Atherosclerotic calcifications ofthe intracranial arterial vasculature are evident. There is no definite CTevidence to suggest acute territorial infarction. The calvarium isunremarkable, without evidence of acute fracture. The visualized mastoidair cells, paranasal sinuses, and orbits are grossly unremarkable. IMPRESSION: 1. No definite CT evidence for acute intracranial abnormality. 2. Other chronic or nonurgent findings as described above. Please note that CT has limited sensitivity for the detection of acuteischemia Referred By: Interpreted By: Yuniel Neumann MD, 07/20/2025 6:15 PM Josiah Estrella DO CT Final Result * XR CHEST PA+LAT (07/20/2025 6:05 PM CDT) Anatomical Region Laterality Modality Chest Radiographic Jayla ging 07/20/2025 6:22 PM CDT Impressions 07/20/2025 6:26 PM CDT Impression: No acute findings. Referred By: Interpreted By: Yuniel Neumann MD, 07/20/2025 6:22 PM Narrative 07/20/2025 6:[address] [place] [address] Examination: Chest 2 View History: Blurry vision, weakness DATE/TIME: 07/20/2025 5:54 PM Comparison: March 26, 2025 Technique: PA and lateral views were obtained. Findings: Borderline heart size. Pulmonary vasculature is normal. No pulmonary consolidation, pleural effusion or pneumothorax. No acute osseous abnormality. Procedure Note Yuniel Neumann MD - 07/20/[address] [place] [address] Examination: Chest 2 View History: Blurry vision, weakness DATE/TIME: 07/20/2025 5:54 PM Comparison: March 26, 2025 Technique: PA and lateral views were obtained. Findings: Borderline heart size. Pulmonary vasculature is normal. Nopulmonary consolidation, pleural effusion or pneumothorax. No acuteosseous abnormality. Impression: No acute findings. Referred By: Interpreted By: Yuniel Neumann MD, 07/20/2025 6:22 PM Josiah Broschak DO GENERAL IMAGING Final Result * (ABNORMAL) URINALYSIS, AUTO, COMPLETE (07/20/2025 5:53 PM CDT) COLOR (U) YELLOW 07/20/2025 6:01 PM T [facility] TRANSPARENCY CLEAR 07/20/2025 6:01 PM T [facility] SPECIFIC GRAVITY (U) 1.020 1.000 - 1.030 07/20/2025 6:01 PM T [facility] U PH 6.0 5.0 - 9.0 07/20/2025 6:01 PM [facility] LEUKOCYTES (U) NEGATIVE NEGATIVE 07/20/2025 6:01 PM [facility] NITRITES NEGATIVE NEGATIVE 07/20/2025 6:01 PM [facility] PROTEIN RANDOM (U) NEGATIVE NEGATIVE 07/20/2025 6:01 PM [facility] GLUCOSE (U) 3+(A) NEGATIVE 07/20/2025 6:01 PM [facility] KETONES MG/DL (U) NEGATIVE NEGATIVE 07/20/2025 6:01 PM [facility] BILIRUBIN (U) NEGATIVE NEGATIVE 07/20/2025 6:01 PM [facility] BLOOD (U) NEGATIVE NEGATIVE 07/20/2025 6:01 PM [facility] WBC/HPF NONE SEEN 0 - 5 /HPF 07/20/2025 6:01 PM [facility] RBC/HPF NONE SEEN 0 - 5 /HPF 07/20/2025 6:01 PM [facility] EPI/HPF RARE /HPF 07/20/2025 6:01 PM T [facility] BACTERIA (U) MANY /HPF 07/20/2025 6:01 PM CDT [facility] URINE SPECIMEN OBTAINED BY CLEAN CATCH PROCEDURE / Unknown 07/20/2025 5:53 PM CDT us Josiah Estrella DO URINE ORDERABLES Final Result [facility] [address] [place] [address], * ECG 12 lead (07/20/2025 5:25 PM CDT) 07/20/2025 5:25 PM CDT Narrative [facility] - 07/20/2025 7:49 PM CDT [facility] Test Date: 2025-07-20 Pat Name: SAULO CURRAN Department: 85 Room: 108 Gender: Male [employer]: : 1955 Requested By: JOSIAH ESTRELLA Order Number: [id number] Reading MD: John Desai Measurements Intervals [place] Rate: 69 P: 41 NV: 198 QRS: -28 QRSD: 96 T: 7 QT: 374 QTc: 401 Interpretive Statements SINUS RHYTHM WITH MARKED SINUS ARRHYTHMIA BORDERLINE LEFT AXIS DEVIATION [QRS AXIS < -20] LOW QRS VOLTAGE IN PRECORDIAL LEADS [QRS DEFLECTION < 1.0 mV IN CHEST LEADS] PATTERN CONSISTENT WITH PULMONARY DISEASE Compared to ECG 03/26/2025 02:41:51 No significant changes Procedure Note John Desai MD - 07/20/2025 [facility] Test Date: 2025-07-20 Pat Name: SAULO CURRAN Department: 85 Room: 108 Gender: Male [employer]: : 1955 Requested By: JOSIAH ESTRELLA Order Number: [id number] Reading : John Desai Measurements Intervals [place] Rate: 69 P: 41 NV: 198 QRS: -28 QRSD: 96 T: 7 QT: 374 QTc: 401 Interpretive Statements SINUS RHYTHM WITH MARKED SINUS ARRHYTHMIA BORDERLINE LEFT AXIS DEVIATION [QRS AXIS < -20] LOW QRS VOLTAGE IN PRECORDIAL LEADS [QRS DEFLECTION < 1.0 mV IN CHESTLEADS] PATTERN CONSISTENT WITH PULMONARY DISEASE Compared to ECG 03/26/2025 02:41:51 No significant changes us Josiah Estrella DO ECG ORDERABLES Final Result Performing Organization Address City/[facility]/ZIP Co de Phone Number [facility] * BETA-HYDROXYBUTYRATE (07/20/2025 5:10 PM CDT) BETA-HYDROXYBUT YRATE 0.1 0.0 - 0.6 MMOL/L 07/20/2025 5:31 PM CDT [facility] 07/20/2025 5:10 PM CDT us Josiah Estrella DO LABORATORY Final Result Performing Organization Address City/[facility] Co de Phone Number [facility] [address] [place] [address], * (ABNORMAL) PRO-BRAIN NATRIURETIC PEPTIDE (07/20/2025 5:10 PM CDT) PRO-B TYPE NATRIURETIC PEPTIDE 244(H) <125 PG/ML 07/20/2025 5:52 PM CDT [facility] Comment: CUT POINTS ESTABLISHED BY [...] OF 89% AND 72% FOR ACUTE CHF. 07/20/2025 5:10 PM CDT us Josiah Estrella DO LABORATORY Final Result [facility] [address] [place] [address], [place] [phone] * (ABNORMAL) Blood gas, venous (07/20/2025 5:10 PM CDT) PH VENOUS 7.49(H) 7.32 - 7.43 07/20/2025 5:31 PM CDT [facility] PCO2 VENOUS 34.0 MMHG 07/20/2025 5:31 PM CDT [facility] Comment:NO REFERENCE RANGE H BEEN ESTABLISHED PO2 VENOUS 161.0 MM HG 07/20/2025 5:31 PM CDT [facility] Comment:NO REFERENCE RANGE H BEEN ESTABLISHED TOTAL CO2 VENOUS 26.9(H) 22.0 - 26.0 MMOL/L 07/20/2025 5:31 PM CDT [facility] BASE EXCESS VENOUS 2.9 MMOL/L 07/20/2025 5:31 PM CDT [facility] Comment:NO REFERENCE RANGE H BEEN ESTABLISHED O2 SAT VENOUS 100 % 07/20/2025 5:31 PM CDT [facility] Comment:NO REFERENCE RANGE H BEEN ESTABLISHED BICARB VENOUS 25.9 22.0 - 29.0 MMOL/L 07/20/2025 5:31 PM CDT [facility] O2 ADMIN VENOUS ROOM AIR 5:31 PM CDT [facility] 07/20/2025 5:10 PM CDT us Josiah Estrella DO LABORATORY Final Result [facility] [address] [place] [address], [place] [phone] * PARTIAL THROMBOPLASTIN TIME,PTT (07/20/2025 5:10 PM CDT) Pathologist [facility] PTT 35.5 25.1 - 36.5 SEC 07/20/2025 5:36 PM CDT [facility] 07/20/2025 5:10 PM CDT Josiah Estrella DO LABORATORY Final Result [facility] [address] [place] [address], [place] [phone] * (ABNORMAL) PROTIME/INR, VENOUS (07/20/2025 5:10 PM CDT) Pathologist [facility] PROTIME 12.5(H) 9.1 - 12.4 SEC 07/20/2025 5:36 PM CDT [facility] INR 1.1 07/20/2025 5:36 PM CDT [facility] Comment: Recommend INR ranges for Oral Anticoagulant Therapy: Mechanical Cardiac Values 2.5-3.5 All others indication 2.0-3.0 07/20/2025 5:10 PM CDT Josiah Estrella DO LABORATORY Final Result [facility] [address] [place] [address], [place] [phone] * (ABNORMAL) COMPREHENSIVE METABOLIC PANEL (07/20/2025 5:10 PM CDT) Pathologist [facility] GLUCOSE 352(H) 70 - 99 MG/DL 07/20/2025 5:52 PM CDT [facility] BUN 15 7 - 18 MG/DL 07/20/2025 5:52 PM [facility] CREATININE S/P/B 1.18 0.7 - 1.3 MG/DL 07/20/2025 5:52 PM [facility] SODIUM S/P/B 137 136 - 145 MMOL/L 07/20/2025 5:52 PM T [facility] POTASSIUM S/P/B 4.2 3.5 - 5.1 MMOL/L 07/20/2025 5:52 PM [facility] CHLORIDE S/P/B 101 100 - 108 MMOL/L 07/20/2025 5:52 PM T [facility] CO2 25.3 21 - 32 MMOL/L 07/20/2025 5:52 PM [facility] CALCIUM S/P/B 9.0 8.5 - 10.1 MG/DL 07/20/2025 5:52 PM [facility] BILIRUBIN TOTAL S/P/B 0.4 0.2 - 1.2 MG/DL 07/20/2025 5:52 PM [facility] TOTAL PROTEIN S/P/B 7.3 6.4 - 8.2 G/DL 07/20/2025 5:52 PM [facility] ALBUMIN S/P/B 3.5 3.4 - 5.0 G/DL 07/20/2025 5:52 PM [facility] AST 34 15 - 37 U/L 07/20/2025 5:52 PM [facility] ALT 66(H) 16 - 60 U/L 07/20/2025 5:52 PM [facility] ALKALINE PHOSPHATASE S/P/B 111 50 - 136 U/L 07/20/2025 5:52 PM [facility] ANION GAP 10.7 5 - 15 MMOL/L 07/20/2025 5:52 PM CDT [facility] BUN CREATININE RATIO 12.7 6 - 26 07/20/2025 5:52 PM CDT [facility] A/G RATIO 0.9(L) 1.0 - 2.0 RATIO 07/20/2025 5:52 PM CDT [facility] GFR ESTIMATE 66(L) >90 ML/MIN/1.7 3 M2 07/20/2025 5:52 PM CDT [facility] Comment: NOTE: eGFR is not calculated for patients <18 years of age. This is an estimated GFR calculation using the new CKD EPI creatinine equation without race and so does not require a correction factor for race. This estimated GFR should not be used for calculating drug doses. 07/20/2025 5:10 PM CDT [facility] LABORATORY Final Result Performing Organization Address City/[facility]/ZIP Co de Phone Number [facility] [address] [place] [address], [place] [phone] * TROPONIN, QUANT (07/20/2025 5:10 PM CDT) [facility] TROPONIN I HIGH SENSITIVITY 6 0 - 75 ng/L 07/20/2025 5:49 PM CDT [facility] Comment: HIGH DOSES OF BIOTIN, TROPONIN-SPECIFIC AUTOANTIBODIES, AND ANTIBODY THERAPY CONTAINING HAMA MAY INTERFERE WITH THIS TEST RESULT. CORRELATION TO CLINICAL HISTORY AND PRESENTATION RECOMMENDED. 07/20/2025 5:10 PM CDT [facility] LABORATORY Final Result [facility] [address] [place] [address], [place] [phone] * MAGNESIUM (07/20/2025 5:10 PM CDT) MAGNESIUM 2.0 1.8 - 2.4 MG/DL 07/20/2025 5:52 PM CDT [facility] 07/20/2025 5:10 PM CDT Josiah Estrella DO LABORATORY Final Result [facility] [address] [place] [address], [place] [phone] * LIPASE (07/20/2025 5:10 PM CDT) LIPASE 60 16 - 77 UNITS/L 07/20/2025 5:52 PM CDT [facility] 07/20/2025 5:10 PM CDT Josiah Estrella DO LABORATORY Final Result Performing Organization Address City/[facility] Co de Phone Number [facility] [address] [place] [address], [place] [phone] * ETHANOL (07/20/2025 5:10 PM CDT) ALCOHOL S/P/B <0.003 <0.003 G/DL 07/20/2025 5:52 PM CDT [facility] 07/20/2025 5:10 PM CDT Josiah Estrella DO LABORATORY Final Result Performing Organization Address City/[facility]/ZIP Co de Phone Number [facility] [address] [place] [address], [place] [phone] from Last 3 Months Insurance [facility] Advance Directives Documents on File Type Date Recorded Patient [employer] Former Expl anation Advance Directives and Livin g Will 05/18/2023 1:20 PM * Full Code (Latest Code Status on File) Date Activated Date Inactivated Comments 07/20/2025 7:24 PM 07/21/2025 1:31 PM * DNR Date Activated Date Inactivated Comments 09/26/2024 8:54 PM 09/29/2024 1:13 PM * DNR Date Activated Date Inactivated Comments 05/13/2023 5:50 PM 05/16/2023 8:45 PM * Full Code Date Activated Date Inactivated Comments 05/13/2023 4:40 PM 05/13/2023 5:50 PM * DNR Date Activated Date Inactivated Comments 05/13/2023 4:38 PM 05/13/2023 4:40 PM Care Teams University Tutor Relationship Specialty Start Date End Date Anuel Bowman DO [address] [place] [address] PCP - General INTERNAL MEDICINE 10/24/20
--- OUTSIDE RECORDS SUMMARY | 2025-09-17 08:17 | XMS_ITS | Encounter Summary ---
Author Organization [facility] Address [address] [place] [address] Care Team Providers Care Recruitment Director Name Role Phone Anuel Bowman DO Primary Care Provider [phone] Reason for Visit * Reason Onset Date Comments Care Management Follow-up 04/10/2024 Encounter Details Date Type Department Care Team (Late st Contact Info) Description 04/10/2024 Telephone [facility] - Centralized Scheduling [facility] [place] [address] Jordy Sierra MD Care Management [...] st Contact Info) Description 10/03/2025 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
--- OUTSIDE RECORDS SUMMARY | 2025-09-17 08:17 | XMS_ITS | Patient Health Record ---
Author Organization [facility] Address [address] [place] [address] Care Team Providers Care Graphic Art Sales Representative Name Role Phone Yvonne Keating Unavailable [phone] Allergies Allergen (clinical drug ingredient) Drug/Non Drug Allergy documented on EMR Reaction Allergy Type Onset Date Status Penicillin anaphylaxis Drug Allergy Acti ve Reason For Referral No Information Medications Medication SIG (Take, Route, Frequency, Duration) Notes Start Date End Date Status Melatonin 10 MG Tablet as directed Orally Active Lantus SoloStar 100 UNIT/ML Solution Pen-injector inject up to 30 units Subcutaneous twice daily; Duration: 90 days 06/10/2025 Active rOPINIRole HCl 2 MG Tablet 1 tablet 1 to 3 hours before bedtime Orally Once a day Active Insulin Pen Needle 29G X 12MM Miscellaneous inject insulin up to twice daily; Duration: 90 days 06/10/2025 Active Pregabalin 200 MG Capsule 1 capsule in the evening 1 to 3 hours before bedtime Orally Once a day Active Dexcom G7 Sensor - Miscellaneous as directed every 10 days; Duration: 90 days 06/10/2025 Active Eliquis 5 MG Tablet 1 tab Orally twice a day Active FreeStyle Madisyn 3 Plus Sensor - Miscellaneous change sensor every 15 days; Duration: 90 days 08/05/2025 Active Vitamin E 100 UNIT Capsule as directed Orally Active Ozempic (0.25 or 0.5 MG/DOSE) 2 MG/3ML Solution Pen-injector 0.5 mg Subcutaneous once a week; Duration: 90 days 07/08/2025 Active Calcium 600 MG Tablet 1 tablet with meal s Orally Twice a day Active glyBURIDE 5 MG Tablet 2 tablets Orally twice a day before meals; Duration: days 08/05/2025 Active Vitamin D (Cholecalciferol) 50 MCG (1999 UT) Capsule 1 capsule Orally Once a day Active Aspirin 81 81 MG [...] a week; Duration: 90 days 09/16/2025 Active dexAMETHasone 1 MG Tablet 1 tablet Orally at 10 pm night before 8 am cortisol; Duration: 1 days 09/16/2025 Active Social History Section Notes: Non-Contributory Non-Contributory Non-Contributory Problems Problem Type SNOMED Code ICD Code Onset Dates Problem Status W/U Status Risk Notes Problem Primary insomnia (0547950) Primary insomnia (F51.01) Active confirmed Problem Long-term current use of insulin (584689798) penitentiary (current) use of insulin (Z79.4) Active confirmed Problem Dyslipidemia (977131318) Dyslipidemia (E78.5) Active confirmed Problem Hyperglycemia due to type 2 diabetes mellitus (632966854928933) Type 2 diabetes mellitus with hyperglycemia, without long-term current use of insulin (E11.65) Active confirmed Problem Obesity (164559067) Obesity (BMI 35.0-39.9 without comorbidity) (E66.9) Active confirmed Vital Signs Heart Rate 71 /min 09/16/2025 Respiratory Rate 12 /min 06/10/2025 Oximetry 94 % 09/16/2025 Height-cm 177.8 cm 09/16/2025 Blood pressure diastolic 82 mm Hg 09/16/2025 Weight-kg 109.95 kg 09/16/2025 Height 70 in 09/16/2025 Blood pressure systolic 149 mm Hg 09/16/2025 Weight 242.4 lbs 09/16/2025 BMI 34.78 kg/m2 09/16/2025 Encounters Encounter Location Date Provider Diagnosis [facility] Keating [address] [place] [address] 06/10/2025 Yvonne Keating Type 2 diabetes mellitus with hyperglycemia, without long-term current use of insulin E11.65 ; remote computer terminal operator (current) use of insulin Z79.4 ; Other fatigue R53.83 ; Obesity (BMI 35.0-39.9 without comorbidity) E66.9 ; Dyslipidemia E78.5 and Dietary counseling and surveillance Z71.[address] Keating [address] [place] [phone] 07/08/2025 Yvonne Keating Type 2 diabetes mellitus with hyperglycemia, without long-term current use of insulin E11.65 ; penitentiary (current) use of insulin Z79.4 ; Obesity (BMI 35.0-39.9 without comorbidity) E66.9 ; Dyslipidemia E78.5 and Dietary counseling and surveillance Z71.[address] Keating [address] [place] [phone] 08/05/2025 Yvonne Keating Type 2 diabetes mellitus with hyperglycemia, without long-term current use of insulin E11.65 ; Obesity (BMI 35.0-39.9 without comorbidity) E66.9 ; remote computer terminal operator (current) use of insulin Z79.4 ; Dyslipidemia E78.5 ; Primary insomnia F51.01 and Dietary counseling and surveillance Z71.[address] Keating [address] [place] [phone] 09/16/2025 Yvonne Keating Type 2 diabetes mellitus with hyperglycemia, without long-term current use of insulin E11.65 ; Obesity (BMI 35.0-39.9 without comorbidity) E66.9 ; Dyslipidemia E78.5 ; Primary insomnia F51.01 and Dietary counseling and surveillance Z71.3 [facility] [address] [place] [phone] 06/09/2025 Yvonne Keating [address] [place] [phone] 06/25/2025 Yvonne Keating CHARLY [facility] [address] [place] [phone] 07/08/2025 Yvonne Keating [address] [place] [phone] 08/22/2025 Yvonne Keating Type 2 diabetes mellitus with hyperglycemia, without long-term current use of insulin E11.65 and remote computer terminal operator (current) use of insulin Z79.4 [facility] [address] [place] [phone] 09/01/2025 Yvonne Keating [facility] [address] [place] [phone] 09/02/2025 [facility] Encounter Date Diagnosis (ICD Code) Assessment Notes Treatment Notes Treatment Clinical Notes Section Notes 06/10/2025 penitentiary (current) use of insulin (ICD-10 - Z79.4) 06/10/2025 Type 2 diabetes mellitus with hyperglycemia, without long-term current use of insulin (ICD-10 - E11.65) patient demonstrates poor glycemic control and treatment resistant DM- will send for DST to screen for hypercortisolism. Refuses metformin due to previous GI upset. Patient was trained on use of dexcom G7 with download and education of use and how to change /when to change. Given sensor SN of [id number] He was given instructions on insulin use to start lantus 12 units in morning and 16 units at bedtime and increase by 2 units every 3 days until fasting glucose 90-130 mg/dL. Recommended certified diabetes educator at [place] or [facility] whichever insurance will cover as patient would benefit from further carbohydrate counting as he may need rapid insulin at return visit but I feel he likely has a component of hypercortisolism leading to severe insulin resistance. 07/08/2025 Type 2 diabetes mellitus with hyperglycemia, without long-term current use of insulin (ICD-10 - E11.65) 08/05/2025 Type 2 diabetes mellitus with hyperglycemia, without long-term current use of insulin (ICD-10 - E11.65) 08/05/2025 Obesity (BMI 35.0-39.9 without comorbidity) (ICD-10 - E66.9) 08/22/2025 Type 2 diabetes mellitus with hyperglycemia, without long-term current use of insulin (ICD-10 - E11.65) 09/16/2025 Type 2 diabetes mellitus with hyperglycemia, without long-term current use of insulin (ICD-10 - E11.65) 09/16/2025 Obesity (BMI 35.0-39.9 without comorbidity) (ICD-10 - E66.9) 08/22/2025 penitentiary (current) use of insulin (ICD-10 - Z79.4) 08/05/2025 remote computer terminal operator (current) use of insulin (ICD-10 - Z79.4) Patient tolerated placement of freestyle madisyn sensor on LUE without site reaction or complication. Settings placed at 80 mgdL up to 180 mg/dL for alarm. He is aware to change sensor every 15 days and aware to reach out to clinic if any questions or concerns. Patient educated on proper placement. Will plan to review glucose reviews at return visit in 4 weeks and intended sensor use is until patient is able to wean off insulin but need to see if cortisol jim therapy is needed to help control patients pooly controlled DM. 07/08/2025 remote computer terminal operator (current) use of insulin (ICD-10 - Z79.4) 06/10/2025 Other fatigue (ICD-10 - R53.83) 06/10/2025 Obesity (BMI 35.0-39.9 without comorbidity) (ICD-10 - E66.9) 08/05/2025 Dyslipidemia (ICD-10 - E78.5) 07/08/2025 Obesity (BMI 35.0-39.9 without comorbidity) (ICD-10 - E66.9) 09/16/2025 Dyslipidemia (ICD-10 - E78.5) 09/16/2025 Primary insomnia (ICD-10 - F51.01) 08/05/2025 Primary insomnia (ICD-10 - F51.01) 07/08/2025 Dyslipidemia (ICD-10 - E78.5) 06/10/2025 Dyslipidemia (ICD-10 - E78.5) 07/08/2025 Dietary counseling and surveillance (ICD-10 - Z71.3) Spent 15 minutes preventative counseling patient on dietary recommendations and changes in setting of hyperglycemia- need to restrict refined sugars and processed foods and incorporate up to 150 minutes of moderate level activity weekly. 09/16/2025 Dietary counseling and surveillance (ICD-10 - Z71.3) Spent 15 minutes preventative counseling patient on dietary recommendations and changes in setting of hyperglycemia- need to restrict refined sugars and processed foods and incorporate up to 150 minutes of moderate level activity weekly. 06/10/2025 Dietary counseling and surveillance (ICD-10 - Z71.3) Spent 15 minutes preventative counseling patient on dietary recommendations and changes in setting of hyperglycemia- need to restrict refined sugars and processed foods and incorporate up to 150 minutes of moderate level activity weekly. 08/05/2025 Dietary counseling and surveillance (ICD-10 - Z71.3) Spent 15 minutes preventative counseling patient on dietary recommendations and changes in setting of hyperglycemia- need to restrict refined sugars and processed foods and incorporate up to 150 minutes of moderate level activity weekly. 06/10/2025 Other Spent 45 minute s preparing to see the patient (ex review of tests/chart), obtaining and / or reviewing separately obtained history, performing a medically appropriate examination and/or evaluation, counseling and educating the patient/family/car egiver, ordering medications, tests, or procedures, referring and communicating with other health pediatric acute care unit nurse, documenting clinical information in the electronic or other health record, independently interpreting results and communicating results to the patient/family/car egiver and care coordinating patient plan. Patient alert and oriented x 4 and aware of discussion noted above and in agreeance to plan in management of type 2 DM now with use of insulin/CGM therapy, fatigue, obesity/weight gain, previous hx of fractures/fragilit y and concern for hypercortisolism. 07/08/2025 Christi Rapp is a patient with poorly controlled diabetes mellitus presenting for follow-up and medication management. Diabetes Mellitus, Type 2, UncontrolledAssess ment: Patient's blood glucose levels remain elevated, with current reading of 327 mg/dL and morning levels around 220 mg/dL. The patient is currently on Lantus, glyburide, and Rybelsus, but glycemic control remains suboptimal. The patient has not been taking Lantus as prescribed (twice daily), which may contribute to poor control. Recent lab results are unavailable for review during this visit. Weight loss of 4 pounds since last visit is noted.Plan:- Discontinue Rybelsus (semaglutide oral)- Start Ozempic (semaglutide injectable) once weekly - Initial dose: 0.25 mg subcutaneously once weekly for 4 weeks - Increase to 0.5 mg subcutaneously once weekly after 4 weeks - Take with food - Informed patient that Ozempic looks similar to an insulin pen- Adjust Lantus (insulin glargine): - Increase to 20 units subcutaneously in the morning - Increase to 26 units subcutaneously at bedtime - Instruct patient to increase by 4 units every 4 days until fasting blood glucose is 90-130 mg/dL- Continue glyburide 2 tablets with breakfast and 2 tablets with dinner- Instruct patient to call when down to 2 Lantus pens- Order cortisol workup at [facility] or [facility]- Follow up in 2 months- Will review lab results when received and prepare bloodwork for next visit InsomniaAssessment : Patient reports difficulty sleeping. A sleep study is scheduled for next month to further evaluate the issue.Plan:- Await results of upcoming sleep study - Have reached out to [facility] to please fax labwork completed by patient so we can see if hypercortisolism is of any concern-per labs completed several weeks ago and [facility] did not send us the results HypertensionAssess ment: Patient's blood pressure is reported as a little high during this visit. Currently on metoprolol for management.Plan:- Continue current antihypertensive regimen (metoprolol, dose not specified)- Monitor blood pressure at follow-up visits Spent 25 minutes preparing to see the patient (ex review of tests/chart), obtaining and / or reviewing separately obtained history, performing a medically appropriate examination and/or evaluation, counseling and educating the patient/family/car egiver, ordering medications, tests, or procedures, referring and communicating with other health pediatric acute care unit nurse, documenting clinical information in the electronic or other health record, independently interpreting results and communicating results to the patient/family/car egiver and care coordinating patient plan. Patient alert and oriented x 4 and aware of discussion noted above and in agreeance to plan in management of type 2 DM/uncontrolled, obesity, dyslipidemia, use of insulin/CGM review. 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 Diabetes Mellitus Type 2Assessment: Patient's diabetes remains poorly controlled despite current management. A1C has shown slight improvement but is still suboptimal. Blood glucose readings are inconsistent, with some good and some poor results. Patient is currently using a DexmPowa continuous glucose monitor, though there are concerns about faulty sensors. Current insulin regimen includes Lantus 26 units in the morning and 26 units at night, along with glyburide twice daily and weekly Ozempic (semaglutide) injections. Patient reports gastrointestinal side effects from Ozempic, experiencing rapid bowel movements after eating.Plan:- Continue Lantus insulin- Adjust Lantus dosing: - If morning blood glucose under 150 mg/dL, increase bedtime dose - If afternoon blood glucose over 300 mg/dL, increase morning dose - Consider increasing to 30 units in the morning and 30 units at night if blood glucose remains high- Continue glyburide- Adjust glyburide dosing based on pre-meal blood glucose: - 200 mg/dL: take two tablets- Do not take glyburide at bedtime; take with dinner- Continue Ozempic (semaglutide) weekly injections- Discontinue Rybelsus- Contact Dexcom regarding faulty sensors- Consider switching to [employer] Madisyn if patient has a compatible smartphone- Follow up in one month HypertensionAssess ment: Patient's blood pressure has shown improvement from previous visits, with today's reading in the 130s/80s range compared to previous readings in the 150s/90s. However, blood pressure control remains suboptimal. Current antihypertensive regimen includes losartan. Considering the potential impact of hypercortisolism on blood pressure control.Plan:- Continue losartan- Consider adding amlodipine if appropriate- Explore possibility of eplerenone, pending insurance coverage and kidney function assessment- Encourage home blood pressure monitoring Suspected HypercortisolismAs sessment: Patient has not completed the required cortisol tests, including urine and saliva cortisol tests and dexamethasone suppression test. These tests are crucial for diagnosis and management of suspected hypercortisolism, which may be contributing to poor control of both diabetes and hypertension. Two positive tests are required to proceed with treatment. Insurance approval for treatment is contingent on obtaining these test results.Plan:- Complete urine and saliva cortisol tests- Perform dexamethasone suppression test- Check if [facility] can perform the tests- Verify [facility] and Medicare coverage for cortisol tests- Emphasize importance of completing tests promptly to facilitate treatment decisions and insurance approval InsomniaAssessment : Patient reports periods of severe insomnia, sometimes not sleeping for up to 2 days. This may be contributing to poor control of diabetes and hypertension.Plan: - Further evaluate sleep patterns and potential causes of insomnia at follow-up visit Spent 25 minutes preparing to see the patient (ex review of tests/chart), obtaining and / or reviewing separately obtained history, performing a medically appropriate examination and/or evaluation, counseling and educating the patient/family/car egiver, ordering medications, tests, or procedures, referring and communicating with other health pediatric acute care unit nurse, documenting clinical information in the electronic or other health record, independently interpreting results and communicating results to the patient/family/car egiver and care coordinating patient plan. Patient alert and oriented x 4 and aware of discussion noted above and in agreeance to plan in management of uncontrolled type 2 DM, insomnia, obesity/weight management, hypertension and concern for hypercortisolism. 09/16/2025 Christi Rapp is a patient with poorly controlled Type 2 diabetes mellitus on multiple medications including insulin, with suspected cortisol excess contributing to insulin resistance. Type 2 diabetes mellitus, poorly controlledAssessme nt: Patient has poorly controlled Type 2 diabetes [...] weeks after completion- All testing available through [facility] Sleep disorderAssessment : Patient reports sleeping only 3 hours daily [...] examination and/or evaluation, counseling and educating the patient/family/car egiver, ordering medications, tests, or procedures, referring and communicating with other health pediatric acute care unit nurse, documenting clinical information in the electronic or other health record, independently interpreting results and communicating results to the patient/family/car egiver and care coordinating patient plan. Patient alert and oriented x 4 and aware of discussion noted above and in agreeance to plan in management of uncontrolled type 2 dM, dyslipidemia, insomnia, concern for hypercortisolism. Plan Of Treatment Next Appt Details Provider Name:Yvonne Keating, 12:00:00 PM, [address] [place] [address], [phone], Insurance Providers Payer Name Payer Address Payer Phone Subscriber Number Group Number Insured Name Patient Relationship to Insured Coverage Start Date Coverage End Date Medicare Part [place] [address] [address] [place] [address] [id number] Dionte Mayorga Self - patient is the insured Medical (General) History Medical History History ICD Code diabetes insulin resistance stroke dyslipidemia Surgical History Surgery Date(Month/Year) left hip replacement 11/2019
--- OUTSIDE RECORDS SUMMARY | 2025-09-17 08:17 | XMS_ITS | Clinical Summary ---
Author Organization [facility] [employer] Address [address] [place] [address] Care Team Providers Care Radiologic Electronic Specialist Name Role Phone Anuel Bowman DO Primary Care Provider [phone] Source Comments [facility] [employer],non-owned Affiliates and Associated Physician Practices is amultiple site organization consisting of ambulatory clinics and hospital sitesin [place], [place], [place] and [place]. This disclosure is being madepursuant to the Care Everywhere program and may not contain all information available regarding this patient. 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 Office Visit [facility] - Urology [address] [place] [address] Ryder Crystal MD [address] [place] [address] [place] [address] 02/11/2026 3:00 PM CDT Office Visit [facility] - Urology [address] [place] [phone] Clarke Munoz PA [address] [place] [phone] Health Maintenance Due Date Last Done Comments [...] SCREENING 02/01/2022 DIABETES-FOOT EXAM WITH MONOFILAMENT 02/01/2022 DIABETES-HGB A1C 08/05/2022 02/02/2022 COLOGUARD (AGES 45-75) - COLON CA SCREENING 03/09/2023 03/09/2020 Colorectal Cancer Screening 03/09/2023 DEPRESSION SCREENING 11/13/2024 02/03/2022 DIABETES - URINE PROTEIN SCREENING 11/13/2024 COVID-19 VACCINE ( season) 2025 02/15/2021, 01/25/2021 INFLUENZA VACCINE (#1) 2025 , 08/22/2020, 08/18/2019, Additional history exists DIABETES-SERUM CREATININE 04/11/20262024, 01/04/2024, 02/04/2022, Additional history exists Respiratory Syncytial Virus (RSV) [...] Diagnosis Comments CREATININE - POCT INTERFACED Routine 04/11/2025 1:25 PM CDT HEMOGLOBIN A1C Routine 02/02/2022 2:37 AM CDT HEPATITIS C AB SCREEN RFLX NAAT QUANT STAT 01/27/2022 5:08 AM CDT from Last 3 Months or Most Recently Relevant to Health Maintenance Results * (ABNORMAL) CREATININE - POCT INTERFACED (04/11/2025 1:25 PM CDT) Creatinine POCT 1.28 0.30 - 1.30 mg/dL 04/11/2025 1:40 PM CDT [facility] eGFR 60(L) >=90 mL/min/1.7 3 m2 04/11/2025 1:40 PM CDT [facility] Blood BLOOD SPECIMEN / Unknown 04/11/2025 1:25 PM CDT 04/11/2025 1:40 PM CDT Ryder Crystal MD LAB - POINT OF CARE ORDERABLES F inal Result Performing Organization Address City/State/[facility] [[email or web address]] Co de Phone Number [address] [address], [facility] [phone] * (ABNORMAL) HEMOGLOBIN A1C (02/02/2022 2:37 AM CDT) Hemoglobin A1c 7.0(H) <=5.6 % 02/02/2022 10:59 AM CDT [facility] Estimated Average Glucose 154 mg/dL 02/02/2022 10:59 AM CDT [facility] Comment: HbA1c Interpretation: Normal : < 5.7% Pre-diabetes: 5.7-6.4% Diabetes: Equal to or greater than 6.5% Test results diagnostic of diabetes should be repeated for confirmation. Treatment target values recommended by ADA and other clinical organizations should be used to evaluate metabolic control in patients. Reference: [place] [employer], Standards of Care in Diabetes [...] CHEMISTRY ORDERABLES Final Result Performing Organization Address [facility] [[email or web address]] Co de Phone Number [address] [address], [facility] [phone] * HEPATITIS C AB SCREEN RFLX NAAT QUANT (01/27/2022 5:08 AM CDT) [facility] Hepatitis C Antibody Non-react maria r Non-reac tive 01/27/2022 6:44 AM CDT [facility] Comment:Hepatitis C Antibody screen indicates no [...] CHEMISTRY ORDERABLES Final Result Performing Organization Address [facility] [[email or web address]] Co de Phone Number [address] [address], [facility] [phone] from Last 3 Months or Most Recently Relevant to Health Maintenance Insurance MEDICARE Advance Directives * Full Code (Latest Code Status on File) Date Activated Date Inactivated Comments 02/01/2022 10:20 AM 02/04/2022 3:10 PM * Full Code Date Activated Date Inactivated Comments 01/27/2022 4:56 AM 01/30/2022 12:54 PM Care Teams Radiologic Electronic Specialist Relationship Specialty Start Date End Date Anuel Bowman DO PCP - General Internal Medicine 01/27/22
--- OUTSIDE RECORDS SUMMARY | 2025-09-17 08:17 | XMS_ITS | Clinical Summary ---
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 Gender Identity Male 06/11/2021 2:32 PM CDT Sexual Orientation Straight 06/11/2021 2: 32 PM CDT Last Filed Vital Signs Vital Sign Reading Time Taken Comments Blood Pressure 120/82 10/30/2024 2:23 PM ART OBJECTS SUPERVISOR Pulse 69 10/30/2024 2:23 PM ART OBJECTS SUPERVISOR Temperature 36.8 C (98.2 F) 05/31/2021 1:59 PM CDT Respiratory Rate 18 05/31/2021 3:00 PM CDT Oxygen Saturation 95% 10/30/2024 2:23 PM ART OBJECTS SUPERVISOR Inhaled Oxygen Concentration - - Weight 108 kg (238 lb) 10/30/2024 2:23 PM ART OBJECTS SUPERVISOR Height 172.7 cm (5' 8) 10/30/2024 2:23 PM ART OBJECTS SUPERVISOR Body Mass Index 36.19 10/30/2024 2:23 PM ART OBJECTS SUPERVISOR Plan of Treatment Health Maintenance Due Date Last Done Comments Colon Cancer Screening-Colonoscopy 1955 Depression Screening 1955 Fall Risk Assessment 1955 Hepatitis C Screening 1955 Hepatitis B Screening 1973 Pneumococcal vaccine 65+ (1 of 2 - PCV) 1974 Abdominal Aortic Aneurysm (A AA) Screen 01/25/2020 Well Visit 65+ 01/25/2020 Covid-19 Vaccine (3 - 2024-2 6 season) 2025 02/15/2021, 01/25/2021 Influenza Vaccine (#1) 2025 , 08/22/2020, 08/18/2019, Additional history exists DTaP/Tdap/Td Vaccine (2 - Td or Tdap) 11/03/2025 11/03/2015 Zoster Vaccine Completed 08/22/2020, 11/13, 08/18/2019, Additional history exists Medical Devices Implanted Type Area Hook And Eye Attacher Device Identifier Shelf Expiration Date Model / Serial / Lot [employer] [id number] [place] 54mm 36mm Hip Neutral Liner Acetabular Altrx Sterile Latex Free - [id number] Implanted:Qty: 1 on 05/31/2021 by Dionte Ovalles MD at [facility] Left: Hip [employer] 05/12/2026 [id number] / / [id number] [employer] [id number] [place] 54mm Sector Hip Shell Acetabular Gription Sterile Latex Free - [id number] Implanted:Qty: 1 on 05/31/2021 by Dionte Ovalles MD at [facility] Left: Hip [employer] 04/12/2031 [id number] / / [id number] [employer] [id number] Actis L107 Mm Collar Hip 6 High Offset Stem Femoral - [id number] Implanted:Qty: 1 on 05/31/2021 by Dionte Ovalles MD at [facility] Left: Hip [employer] 05/12/2031 [id number] / / [id number] [employer] [id number] Articul/Declan 36mm Cementless Hip +8.5mm /14 Taper Head Femoral Latex Free - [id number] Implanted:Qty: 1 on 05/31/2021 by Dionte Ovalles MD at [facility] Left: Hip [employer] 02/10/2026 [id number] / / [id number] Insurance MEDICARE [employer] MEDICARE FOR LIFE Advance Directives For more information, please contact: [phone] * Full Code (Latest Code Status on File) Date Activated Date Inactivated Comments 05/31/2021 11:11 AM 05/31/2021 8:40 PM Care Teams Dry Wall Sprayer Relationship Specialty Start Date End Date Anuel Bowman DO PCP - General 11/02/15 Dionte Ovalles MD Surgeon Orthopedic Surgery 05/31/21
--- NOTE | 2025-10-12 16:17 | WPDSLEEPSTUD ---
Sleep Study Date of Study: 09/17/25 Ordering Provider: Marylou Hart DO Interpreting Physician: Marylou Hart DO Sleep Study Type: Split Polysomnogram Height: 1.73 m Weight: 105.233 kg Body Mass Index: 35.2 Neck Circumference (inches): 21 [place]: 2 Reason for Sleep Study Previously diagnosed sleep apnea. Stopped using CPAP 5 years ago. Sleep History The patient is a 70-year-old male with previously diagnosed sleep apnea that had a sleep study ordered by his sleep medicine physician for re-evaluation of sleep apnea after not using a CPAP in several years. The patient occasionally awakens from sleep short of breath. He denies awakening at night with heartburn, belching or cough. He frequently snores and is constantly loud enough that others complain. He denies having trouble sleeping when he has a cold. He occasionally wakes up gasping for air throughout the night. He frequently has breathing problems at night observed by himself or others. He denies sweating excessively at night. He denies having heart palpitations or irregular heartbeats during the night. He occasionally falls asleep during the day but rarely while driving. He denies sleep paralysis, cataplexy and hypnagogic/ hypnopompic hallucinations. He denies having trouble at school or work due to sleepiness. He denies feeling afraid of going to sleep. He rarely has nightmares. He occasionally remembers his dreams. He constantly has thoughts racing through his mind. He denies feeling sad, depressed or anxious. He occasionally has muscular tension. He denies noticing parts of his body jerk. He occasionally kicks during the night. He constantly has crawling and aching feelings in his legs and occasionally has leg pain during the night. He denies grinding his teeth during sleep and denies awakening with morning jaw pain. He denies being bothered by pain during the day and denies being awakened by pain during the night. He denies waking up feeling stiff in the morning. He denies waking up with sore or achy muscles. He denies waking up with pain in the neck, spine and other joints. He goes to bed between 1-2 a.m. every night. It takes him 2 hours to fall asleep. He wakes up 2-3 times throughout the night for unknown reasons and can take 40 minutes to fall back asleep. He wakes up between 5-6 a.m. every morning. He typically gets 3 hours of sleep per night. He will stay in bed for 10 minutes after waking up in the morning. He currently lives with his . He denies consuming any caffeinated beverages within 2 hours of bedtime. He will engage in physical exercise before bedtime. He denies reading or watching television before falling asleep. He denies taking naps in afternoon or the evening. He denies consuming any caffeinated beverages throughout the day. He denies tobacco, alcohol and recreational drug use. [facility] Past Medical History Medical History CHARLES (obstructive sleep apnea) Hyperlipidemia Hx of cataract Type 2 diabetes mellitus Trigger finger Pulmonary nodule RLS (restless legs syndrome) Pleural thickening Sleep apnea Heart murmur HTN (hypertension) Surgical History Surgical History History of total left hip replacement 06/2021 Family History Family History Sibling Hypertension Mother CHF (congestive heart failure) Heart disease Hypertension Diabetes mellitus Sibling Breast cancer Social History Social History Smoking status: Never smoker Smoking end date: 11/13/75 Alcohol intake: former Alcohol use details: rarely Currently Unemployed: No Medications Home Medications ?Medication ?Instructions ?Recorded ?Confirmed ?Type aspirin 81 mg tablet,delayed 81 mg PO DAILY #90 tabs 08/24/22 08/29/25 Rx release (Adult Low Dose Aspirin) blood-glucose meter (Blood Glucose #1 ea 05/22/23 08/29/25 Rx Monitoring kit) calcium phosphate-vitamin D3 600 tablet PO 01/01/24 08/29/25 History mg-125 unit tablet vitamin E mixed 100 unit tablet 100 unit PO DAILY 01/01/24 08/29/25 History blood sugar diagnostic (FreeStyle #400 ea 02/05/25 08/29/25 Rx Lite Strips) lancets 28 gauge (FreeStyle #400 ea 02/05/25 08/29/25 Rx Lancets) melatonin 10 mg capsule 10 mg PO QHS #90 caps 05/12/25 08/29/25 Rx pen needle, diabetic 30 gauge x #1,200 ea 06/11/25 08/29/25 Rx 5/16 metoprolol succinate 50 mg 50 mg PO BID #180 tabs 07/11/25 08/29/25 Rx tablet,extended release 24 hr apixaban 5 mg tablet (Eliquis) 5 mg PO BID #180 tabs 08/19/25 08/29/25 Rx glyburide 5 mg tablet 10 mg (2 x 5 mg) PO BID #360 tabs 08/19/25 08/29/25 Rx losartan 100 mg tablet 100 mg PO DAILY #90 tabs 08/19/25 08/29/25 Rx pregabalin 200 mg capsule 200 mg PO BID #180 caps 08/19/25 08/29/25 Rx ropinirole 2 mg tablet,extended 4 mg (2 x 2 mg) PO QHS #180 tabs 08/19/25 08/29/25 Rx release 24 hr blood-glucose sensor (Dexcom G7 #1 ea 08/20/25 08/29/25 History Sensor device) eszopiclone 2 mg tablet (Lunesta) 2 mg PO QHS #1 tablet 08/20/25 08/29/25 Rx cyclobenzaprine 5 mg tablet 5 mg PO QHS PRN muscle spasm #30 08/29/25 08/29/25 Rx tabs insulin glargine 100 unit/mL (3 30 unit (0.3 mL) subcut BID #15 mL 08/29/25 08/29/25 Rx mL) subcutaneous pen (Lantus Solostar U-100 Insulin) Sleep Procedure A full night split study using the [employer] SleepThe Daily Hundred multi-channel system recorded the standard physiologic parameters including EEG, EOG, submentalis EMG, anterior tibialis EMG, EKG, body position, nasal and oral airflow using nasal pressure sensor and thermistor.? Respiratory parameters of chest and abdominal movements were recorded with Respiratory Inductance Plethysmography belts. Oxygen saturation was recorded by pulse oximetry. Video monitoring was also performed. Sleep stages, periodic limb movements, and EEG arousals were scored in 30 second epochs according to the criteria of the AASM Scoring Manual. The Apnea-Hypopnea Index was calculated using CMS guidelines for definition of hypopnea with 4% O2 desaturations while scoring respiratory events. Sleep Architecture During the diagnostic portion of the study, the total recording time was 201.5 minutes. The total sleep time was 128.0 minutes. Sleep latency was 9.0 minutes.? REM sleep was not achieved during this portion of the study. Sleep Efficiency was 63.5%. The patient had 69 awakenings for an awakening index of 32.3. Wake after sleep onset time was 64.5 minutes. The patient spent 22.5 minutes, 17.6% of total sleep time in Stage N1. The patient spent 103.0 minutes, 80.5% in Stage N2. The patient spent 2.5 minutes, 2.0% in Stage N3. The patient spent 0.0 minutes, 0.0% in Stage REM sleep. At 02:25:30 AM the patient was placed on PAP treatment and was titrated at pressures ranging from 5 cm H20 up to 12 cm H20. During the treatment portion of the study, the total recording time was 242.9 minutes.? The total sleep time was 234.5 minutes. Sleep latency was 0.0 minutes. REM latency was 24.0 minutes. Sleep Efficiency was 96.6%. Wake after Sleep Onset time was 8.5 minutes. The patient spent 12.0 minutes, 5.1% of total sleep time in Stage N1. The patient spent 163.5 minutes, 69.7% in Stage N2. The patient spent 0.5 minutes, 0.2% in Stage N3. The patient spent 58.5 minutes, 24.9% in Stage REM. Respiratory Analysis During the diagnostic portion of the study, the patient had 17 hypopneas, 76 obstructive apneas, 5 mixed apneas, and 27 central apneas for an overall Apnea Hypopnea Index of 58.6 events per hour. The REM Apnea Hypopnea Index was 0. The NREM Apnea Hypopnea Index was 58.6. The patient had a Central Apnea Hypopnea Index of 12.7. There was no evidence of Jerome-Marshall Respirations. During the treatment portion of the study, the patient had 8 hypopneas, 12 obstructive apneas and 1 mixed apnea for an overall Apnea Hypopnea Index of 5.4 events per hour. The REM Apnea Hypopnea Index was 1.0. The NREM Apnea Hypopnea Index was 6.8. The patient had a Central Apnea Hypopnea Index of 0. There was no evidence of Jerome-Marshall Respirations. The patient was started on CPAP 5 cm H2O and titrated to CPAP 12 cm H2O due to obstructive apneas and hypopneas. The patient was able to fall asleep starting on CPAP 5 cm H2O. The patient was able to achieve REM sleep starting on CPAP 7 cm H2O. The patient was able to achieve a residual AHI less than 5 with both NREM and REM sleep on the final two pressure settings. On CPAP 11 cm H2O, the patient spent 33 minutes in NREM and 7 minutes in REM with 2 hypopneas, resulting in an AHI of 3.0. On CPAP 12 cm H2O, the patient spent 73 minutes in NREM and 36 minutes in REM with 3 hypopneas, resulting in an AHI of 1.7. The patient had a sleep efficiency of 96.4% on 11 cm H2O and 99.5% on 12 cm H2O. Arousals During the diagnostic portion of the study, there were a total of 83 arousals for an arousal index of 38.9.? There were 79 respiratory arousals for an index of 37.0. There were 0 periodic limb movement arousals for an index of 0.? There were 0 isolated limb movement arousals for an index of 0. There were 3 spontaneous arousals for an index of 1.4. During the treatment portion of the study, there were a total of 31 arousals for an index of 7.9.? There were 13 respiratory arousals for an index of 3.3. There was 1 periodic limb movement arousal for an index of 0.3.? There were 11 isolated limb movement arousals for an index of 2.8. There were 6 spontaneous arousals for an index of 1.5. Periodic Limb Movements During the diagnostic portion of the study, the patient had 1 isolated limb movements with an index of 0.5. The patient had 0 periodic limb movements with an index of 0. The patient had a total of 1 limb movements with a total limb movement index of 0.5. During the treatment portion of the study, the patient had 27 isolated limb movements with an index of 6.9. The patient had 4 periodic limb movements with an index of 1.0. The patient had a total of 31 limb movements with a total limb movement index of 7.9. Oximetry Data During the diagnostic portion of the study, the patient had an average oxygen saturation of 91.4% in wake with a minimum oxygen saturation of 73% and a maximum oxygen saturation of 98%. The patient had an average oxygen saturation of 89.7% in sleep with a minimum oxygen saturation of 70.0% and a maximum oxygen saturation of 98.0%. The patient had 95 oxygen desaturations resulting in an Oxygen Desaturation Index of 44.5. The patient spent 49.6 minutes, 24.8% of total sleep time with an oxygen saturation less than 88%. During the treatment portion of the study, the patient had an average oxygen saturation of 94.1% in wake with a minimum oxygen saturation of 88.0% and a maximum oxygen saturation of 98.0%. The patient had an average oxygen saturation of 94.8% in sleep with a minimum oxygen saturation of 83.0% and a maximum oxygen saturation of 98.0%. The patient had 25? oxygen desaturations resulting in an Oxygen Desaturation Index of 6.7. The patient spent 1.5 minutes, 0.7% of total sleep time with an oxygen saturation less than 88%. Snoring Profile Moderate to loud snoring was present in the baseline portion of the study. The snoring resolved once the patient was titrated to CPAP 12 cm H2O. Cardiac Profile The EKG lead showed normal sinus rhythm with rare PVCs. During the diagnostic portion of the study, the average pulse rate was 61.4 bpm.? The minimum pulse rate was 48.0 bpm. The maximum pulse rate was 84.0 bpm. During the treatment portion of the study, the average pulse rate was 56.1 bpm.? The minimum pulse rate was 48.0 bpm. The maximum pulse rate was 77.0 bpm. EEG Profile No signs of seizure activity seen. Assessment and Plan Assessment and Plan (1) CHARLES (obstructive sleep apnea): Code(s): G47.33 - Obstructive sleep apnea (adult) (pediatric) Status: Acute Assessment and Plan: In the baseline portion of the study, the patient had an overall AHI of 58.6 with desaturation down to 70%. This is consistent with severe sleep apnea. The patient had a central apnea index of 12.7, which is abnormal (normal <5). The patient was started on CPAP 5 cm H2O and titrated to CPAP 12 cm H2O due to obstructive apneas and hypopneas. I recommend that the patient be prescribed Resmed CPAP 12 cm H2O, size medium Resmed AirFit P30i nasal mask, CPAP filters/tubing and heated humidity. This should be used with all episodes of sleep.? Compliance should be reviewed within 31-90 days of starting therapy for usage greater than 4 hours per night greater than 70% of the nights. The patient should be asked about symptoms such as?excessive daytime sleepiness, quality of sleep, decreased nocturia, increased?mental functioning such as memory, mood, and concentration. (2) RLS (restless legs syndrome): Code(s): G25.81 - Restless legs syndrome Status: Acute Assessment and Plan: The patient's sleep history is consistent with Restless Leg Syndrome. I recommend that the patient have a serum ferritin drawn for evaluation of iron deficiency anemia. If the patient has a serum ferritin less than 75 ng/mL, I recommend starting a daily iron supplement and a Vitamin C supplement for better absorption. There are nonpharmacological methods to treat limb movements including daily exercise, stretching calf muscles before bed, avoiding excessive amounts of caffeine and alcohol, vitamin B supplementation, magnesium lotion massaged into legs before bed, and use of a weighted blanket. Data The data obtained during this sleep study is adequate for interpretation. Certification This sleep study has been reviewed by a board certified sleep medicine physician.
[2025-10-12 16:19] VITALS: BMI 35.2
== END 2025-09-18 06:44 | disposition home or self-care (01) ==
PROVIDERS: PCP Nurse Practitioner; Visit Provider Family Medicine
DX: G47.33 Obstructive sleep apnea (adult) (pediatric) (principal); G25.81 Restless legs syndrome
CPT/HCPCS: 95811